=== PATIENT | female | born 1960 | race Hispanic/Latino ===

== ENCOUNTER 2020-04-17 15:21 | Inpatient (IN) | payer MEDICARE, OTHER ==
[~2020-04-17] VITALS: Ht 149.9 cm; Wt 94.3 kg
--- NOTE | 2020-04-17 15:44 | Emergency Department Note ---
History of Present Illnes History of Present Illness Chief Complaint: General Medicine Complaints History of Present Illness This is a 59 year old female arrives to the ED with abdominal pain. Chief Complaint Comment PT SENT OVER FROM DIALYSIS FOR CLOGGED SHUNT DIALYSIS LASTED 2 HR UNSURE OF HOW MUCH FLUID WAS PULLED OFF C/O RLQ/LLQ PAIN STATES SHE'S BEEN IN AND OUT OF [facility] FOR SAME COMPLAINT TOLD IT WOULD BE BETTER IF THEY CAME HERE BECAUSE THEY DON'T HAVE PERITONEAL DIALYSIS DENIES N/V C/O DIARRHEA C/O PAIN WHILE DRIVING OVER BUMPS PT STILL HAS APPENDIX Historian: Patient Onset (how long ago): hour(s) Radiation: Reports abdomen Severity: mild Duration (how long): day(s) Timing of current episode: constant Progression: worsening Past Medical/Family History Physician Review I have reviewed the patient's past medical and family history. Any updates have been documented here. Past Medical History Recent Fever: No Clinical Suspicion of Infectio: No New/Unexplained Change in Ment: No Past Medical History: Hypertension, Diabetes, CHF, A-Fib, Hyperlipedemia Other Medical History: RHEUMATOID ARTHRITIS GOUT Past Surgical History: Cholecysctectomy Other Surgery: STENTS Social History Smoking Cessation: Never Smoker Other Last Tetanus: UTD Review of Systems Review of Systems Constitutional: Reports no symptoms EENTM: Reports no symptoms Cardiovascular: Reports no symptoms Respiratory: Reports no symptoms Gastrointestinal: Reports as per HPI, Reports abdominal pain Genitourinary: Reports no symptoms Musculoskeletal: Reports no symptoms Integumentary: Reports no symptoms Neurological: Reports no symptoms Psychological: Reports no symptoms Endocrine: Reports no symptoms Hematological/Lymphatic: Reports no symptoms Physical Exam Related Data Allergies: Coded Allergies: No Known Allergies (Unverified , 04/17/20) Triage Vital Signs Vital Signs Date Time Temp Pulse Resp B/P (MAP) Pulse Ox O2 Delivery O2 Flow Rate FiO2 04/17/20 15:29 98.2 93 18 116/62 95 Vital signs reviewed: Yes Physical Exam CONSTITUTIONAL Constitutional: Present well-developed, Present well-nourished, Present morbidly obese HENT HENT: Present normocephalic, Present atraumatic, Present oropharynx clear/moist, Present nose normal HENT L/R: Present left ext ear normal, Present right ext ear normal EYES Eyes: Reports PERRL, Reports conjunctivae normal NECK Neck: Present ROM normal PULMONARY Pulmonary: Present effort normal, Present breath sounds normal CARDIOVASCULAR Cardiovascular: Present regular rhythm, Present heart sounds normal, Present capillary refill normal, Present normal rate GASTROINTESTINAL Abdominal: Present soft, Present bowel sounds normal, Present tender GENITOURINARY Genitourinary: Present exam deferred SKIN Skin: Present warm, Present dry MUSCULOSKELETAL Musculoskeletal: Present ROM normal NEUROLOGICAL Neurological: Present alert, Present oriented x 3, Present no gross motor or sensory deficits PSYCHOLOGICAL Psychological: Present mood/affect normal, Present judgement normal Results Laboratory Lab results reviewed: Yes Laboratory comments Laboratory Tests Test 04/24/20 15:39 Bedside Glucose 192 mg/dL (70-120) Imaging Imaging results reviewed: Yes Impressions MPRESSION: 1. Prominent wall enhancement of the distal ileum adjacent to peritoneal catheter with few loops showing mild wall thickening. Findings are suspicious for enteritis, which may be infectious or inflammatory. There is no bowel dilation or obstruction. 2. A few air foci are noted in the mesentery adjacent to abnormal loops of bowel, with multiple air foci in the nondependent portion of the peritoneal cavity consistent with pneumoperitoneum, greater than expected for peritoneal dialysis. Findings are concerning for bowel perforation. 3. Moderate amount of fluid in the peritoneal cavity and pelvis, which is likely secondary to peritoneal dialysis. 4. No peritoneal thickening or abnormal enhancement to suggest spontaneous bacterial peritonitis. 5. Cirrhotic liver. No suspicious enhancing lesions. 6. Small right pleural effusion and associated compressive atelectasis of the right lower lobe. 7. Findings discussed with Dr. Dawn April 17, 2020 at 1828 hours Assessment & Plan Medical Decision Making MDM 59-year-old female arrived to the ED with left lower quadrant abdominal pain. Patient CT findings concerning for possible bowel perforation, patient is diffusely tender. Lab work is unremarkable with no evidence of infection noted, Dr. Mai from general surgery informed of CT findings, to evaluate patient bedside. Patient require hospital admission. Assessment & Plan Final Impression: (1) Perforated abdominal viscus Depart Disposition: ADMITTED Last Vital Signs Date Time Temp Pulse Resp B/P (MAP) Pulse Ox O2 Delivery O2 Flow Rate FiO2 04/17/20 15:29 98.2 93 18 116/62 95 Home Meds Reported Medications [Sulfurzynine] No Conflict Check, 500 MG PO BID 04/18/20 Prednisone (PREDNISONE) 5 Mg Tablet, 2.5 MG PO PRN for ARTHRITIS , #30 TAB 04/18/20 Furosemide (FUROSEMIDE) 20 Mg Tablet, 20 MG PO DAILY 04/18/20 Cyclobenzaprine Hcl (CYCLOBENZAPRINE HCL) 10 Mg Tablet, 10 MG PO DAILY, TAB 04/18/20 Clopidogrel Bisulfate (CLOPIDOGREL) 75 Mg Tablet, 75 MG PO DAILY, #30 TAB 04/18/20 Carvedilol (CARVEDILOL) 12.5 Mg Tablet, 25 MG PO DAILY, #60 TAB 04/18/20 Adalimumab (HUMIRA) 40 Mg/0.8 Ml [email or web address], 40 MG INJ Q 2 WK 04/18/20 Amlodipine Besylate (AMLODIPINE BESYLATE) 5 Mg Tablet, 5 MG PO DAILY, #30 TAB 04/18/20 Sodium Bicarbonate (SODIUM BICARBONATE) 650 Mg Tablet, 650 MG PO DAILY, #30 TAB 04/18/20 Metronidazole (METRONIDAZOLE) 500 Mg Tablet, 500 MG PO DAILY, TAB 04/18/20 Ciprofloxacin Hcl (CIPRO) 500 Mg Tablet, 250 MG PO DAILY, #30 TAB 04/18/20 Pramipexole Di-Hcl (PRAMIPEXOLE DIHYDROCHLORIDE) 0.25 Mg Tablet, 0.25 MG PO HS 04/18/20 Tizanidine Hcl (TIZANIDINE HCL) 4 Mg Capsule, 4 MG PO PRN PRN for MUSCLE RELAXER 04/18/20 Tramadol Hcl (ULTRAM) 50 Mg Tablet, 50 MG PO PRN, TAB 04/18/20 Atorvastatin Calcium (ATORVASTATIN CALCIUM) 20 Mg Tablet, 20 MG PO DAILY, #30 TAB 04/18/20 Glipizide (GLIPIZIDE) 5 Mg Tablet, 5 MG PO DAILY, TAB 04/18/20 Allopurinol (ALLOPURINOL) 100 Mg Tablet, 100 MG PO DAILY, #30 TAB 04/18/20 Levothyroxine Sodium (LEVOTHYROXINE SODIUM) 75 Mcg Tablet, 75 MCG PO DAILY, #30 TAB 04/18/20 Gabapentin (GABAPENTIN) 300 Mg Capsule, 300 MG PO DAILY, #60 CAP 04/18/20 Clopidogrel Bisulfate* (PLAVIX) 75 Mg Tablet, MG PO DAILY, #30 TAB 04/18/20 LAURIE DAWN, DO Apr 17, 2020 15:44
[2020-04-17 16:15] LABS: BASOPHILS % 0.2 % (0.0-1.0); EOSINOPHILS % 0.2 % (0.0-6.0); HEMATOCRIT 27.9 % (34.2-44.1); HEMOGLOBIN 8.8 g/dL (12.0-16.0); LYMPHOCYTES # (AUTO) 0.3 (1.0-3.2); LYMPHOCYTES % 6.2 % (18.0-39.1); MEAN CORPUSCULAR HEMOGLOBIN 32.7 pg (28-32); MEAN CORPUSCULAR HGB CONC 31.5 g/dL (31-35); MEAN CORPUSCULAR VOLUME 103.7 fL (81-99); MONOCYTES # (AUTO) 0.4 (0.2-0.8); MONOCYTES % 7.6 % (4.4-11.3); NEUTROPHILS # (AUTO) 4.4 (2.1-6.9); NEUTROPHILS % 85.4 % (38.7-80.0); PLATELET COUNT 232 x10e3/uL (140-360); RED BLOOD COUNT 2.69 x10e6/uL (3.6-5.1); RED CELL DISTRIBUTION WIDTH 13.4 % (11.7-14.4)
[2020-04-17 16:34] LABS: ALBUMIN 2.7 g/dL (3.5-5.0); ALBUMIN/GLOBULIN RATIO 0.6 (0.8-2.0); ANION GAP 13.5 mmol/L (8-16); CREATININE, SERUM 4.44 mg/dL (0.57-1.11); POTASSIUM 3.5 mmol/L (3.5-5.1)
[2020-04-17 16:40] LABS: CREATINE KINASE MB 1.1 ng/mL (0-5.0)
[2020-04-17] MEDS ORDERED: MORPHINE SULFATE INJ 4 MG/ML INJ 1ML IV PRN (17:45)
[2020-04-17] MEDS ORDERED: ONDANSETRON HCL INJ 2MG/ML 2ML 2 MG/ML VIAL IV STA (17:50)
[2020-04-17] MEDS ORDERED: SODIUM CHLORIDE 0.9% 50ML 50 ML ONE ×2 (18:14→21:48)
[2020-04-17] MEDS ORDERED: IOPAMIDOL 370 MG/ML 200 ML INFUS..BTL INJ ONE (18:14)
--- NOTE | 2020-04-17 18:32 | Diagnostic Imaging Report ---
EXAMINATION: CT of the abdomen and pelvis with contrast. TECHNIQUE: Spiral CT images of the abdomen and pelvis were performed from the lung bases to the lesser trochanters after the intravenous administration of 100 cc of Isovue 370 and the oral administration of water. Coronal and sagittal reformatted images were obtained. COMPARISON: None. CLINICAL HISTORY:Abdominal pain, feeling weak, peritoneal dialysis today DISCUSSION: ABDOMEN/PELVIS: LINES AND TUBES: Radiopaque catheter enters the peritoneal cavity anteriorly below the umbilicus and is coiled in the anterior aspect of the pelvis (series 2, image 73). LOWER THORAX:Small right pleural effusion and associated compressive atelectasis of the right lower lobe. Atherosclerotic calcification of the aortic valve and coronary arteries. HEPATOBILIARY: Nodular hepatic contour with atrophy of the right hepatic lobe and prominence of the caudate and left lobes, consistent with cirrhosis. No enhancing lesions. No intra or extrahepatic biliary ductal dilation. GALLBLADDER: Cholecystectomy clips. SPLEEN: No splenomegaly. PANCREAS: No focal masses or ductal dilatation. ADRENALS: No adrenal nodules. KIDNEYS/URETERS: Bilateral renal cortical thinning. No hydronephrosis, hydroureter or evidence of obstruction. No stones. No solid enhancing masses. PELVIC ORGANS/BLADDER: Bladder is decompressed but grossly unremarkable. Uterus unremarkable. No adnexal masses. PERITONEUM/RETROPERITONEUM: Moderate amount of fluid in the peritoneal cavity and pelvis. Multiple air foci in the nondependent portion of the peritoneal cavity, consistent with pneumoperitoneum (for example series 2, image 30, 32, 45). No peritoneal thickening or abnormal enhancement is noted. LYMPH NODES: No intra-abdominal, retroperitoneal, pelvic or inguinal lymphadenopathy. VESSELS: The celiac trunk,superior and inferior mesenteric and bilateral renal arteries are patent The portal, superior mesenteric and splenic veins are patent. Atherosclerotic calcification of the abdominal aorta and iliac vessels. GI TRACT: No bowel dilation or evidence of obstruction. There is prominent wall enhancement of the distal ileum adjacent to the peritoneal catheter, with a few loops showing mild wall thickening (example series 2, image 71). A few air foci are noted in the mesentery adjacent to these bowel loops (for example series 2, image 15) Rest of the bowel shows normal enhancement. Appendix is identified and normal in caliber. BONES AND SOFT TISSUE: No aggressive lytic lesions. Multilevel degenerative disks in the lower thoracic and lumbosacral spine , worse at L4-L5 and L5-S1. No aggressive lytic or focal suspicious sclerotic lesions. Mild generalized soft tissue edema. IMPRESSION: 1. Prominent wall enhancement of the distal ileum adjacent to peritoneal catheter with few loops showing mild wall thickening. Findings are suspicious for enteritis, which may be infectious or inflammatory. There is no bowel dilation or obstruction. 2. A few air foci are noted in the mesentery adjacent to abnormal loops of bowel, with multiple air foci in the nondependent portion of the peritoneal cavity consistent with pneumoperitoneum, greater than expected for peritoneal dialysis. Findings are concerning for bowel perforation. 3. Moderate amount of fluid in the peritoneal cavity and pelvis, which is likely secondary to peritoneal dialysis. 4. No peritoneal thickening or abnormal enhancement to suggest spontaneous bacterial peritonitis. 5. Cirrhotic liver. No suspicious enhancing lesions. 6. Small right pleural effusion and associated compressive atelectasis of the right lower lobe. 7. Findings discussed with Dr. Moore April 17, 2020 at 1828 hours Signed by: Dr. Tato Hernandez M.D. on 04/17/2020 6:29 PM
--- NOTE | 2020-04-17 19:11 | NUR ---
RECEVIED REPORT FROM MILO HURTADO; ASSUMED CARE AT THIS TIME, PT IN NAD; RESP E/U, SKIN WARM DRY; V/S/S, DENIES C/O PAIN; DAUGHTER AT BEDSIDE.
--- NOTE | 2020-04-17 19:26 | NUR ---
DR. WELLS AT BEDSIDE FOR PATIENT EVAL AT THIS TIME, UPDATING POC.
[2020-04-17] MEDS ORDERED: CEFTRIAXONE SOD 1 GM/NS 50 ML 50 ML IV ONE (19:45)
[2020-04-17 19:59] LABS: INR 1.15; PROTHROMBIN TIME 15.4 seconds (11.9-14.5)
--- NOTE | 2020-04-17 20:47 | NUR ---
SPOKE TO MD WELLS REGARDING BLOOD SUGAR. NEW ORDERS RECEIVED.
[2020-04-17] MEDS ORDERED: DEXTROSE 50% SYRINGE 50 ML IV PRN (21:00)
[2020-04-17] MEDS: INSULIN REGULAR, HUMAN 100 UNIT/1 ML 3ML VIAL SQ SCH (21:00)
--- NOTE | 2020-04-17 21:02 | NUR ---
SPOKE TO MD STEINBERG. NEW ORDERS RECEIVED.
[2020-04-17 21:09] VITALS: BP 128/61
[2020-04-17 21:10] VITALS: BP 128/61
--- NOTE | 2020-04-17 21:15 | Consultation ---
DATE OF CONSULTATION: 04/17/2020 CHIEF COMPLAINT: Abdominal pain. HISTORY OF PRESENT ILLNESS: The patient is a 59-year-old female with history of end-stage renal disease, who had peritoneal dialysis catheter placement approximately 2 weeks ago. The patient was at the dialysis center and having it flushed today, during which she experienced severe abdominal pain with nausea, but no vomiting. The patient states the pain has been persistent. PAST MEDICAL HISTORY: Positive for hypertension, diabetes, end-stage renal disease, and liver cirrhosis, nonalcoholic. PAST SURGICAL HISTORY: Positive for cholecystectomy and peritoneal catheter placement. ALLERGIES: THE PATIENT HAS NO DRUG ALLERGIES. SOCIAL HABITS: She denies drinking or smoking. REVIEW OF SYSTEMS: No chest pain, shortness of breath, fever, or cough. PHYSICAL EXAMINATION: VITAL SIGNS: Stable. She is afebrile. GENERAL: She is awake, alert, in moderate discomfort. HEENT: Sclerae anicteric. NECK: Supple. LUNGS: Clear. HEART: Regular rate and rhythm. ABDOMEN: Mildly to moderately distended with guarding tenderness in the lower abdomen with questionable rebound tenderness. EXTREMITIES: No cyanosis or edema. LABORATORY DATA: White cell count is 5, hemoglobin 8.8, and platelet count 232. Creatinine of 4.4. Liver function tests within normal limits. CT of the abdomen show thickened wall of the distal ileum, suggestive of enteritis with some air bubble in the mesentery, suggesting pneumoperitoneum even though peritoneal dialysis fluid is a possibility. ASSESSMENT: Abdominal pain. The patient had peritoneal dialysis catheter placement several weeks ago. Pain is recurrent with CT scan, suggestive for bowel perforation. PLAN: Diagnostic laparoscopy and indicated procedure. Arvind Mai MD DNRosalinda/MODL /[id number]
[2020-04-17] MEDS ORDERED: FAMOTIDINE 20 MG/2 ML VIAL IV STA (22:07)
[2020-04-17] MEDS: MORPHINE SULFATE INJ 4 MG/ML INJ 1ML IV PRN (22:24)
[2020-04-18] VITALS (8 sets, daily range): BP systolic 108–129; BP diastolic 51–72
[2020-04-18] MEDS: PIPERACILLIN/TAZO 2.25 GM 50 ML IV SCH ×5 (00:08→23:57)
--- NOTE | 2020-04-18 00:56 | History and Physical ---
CHIEF COMPLAINT: Abdominal pain with possible perforation. Unable to flush PD cath during PD HISTORY OF PRESENT ILLNESS: The patient is a 59-year-old female, was brought into the hospital because her peritoneal dialysis catheter is not functioning. It was not flushing during PD and the fluid remaining in the abdomen. The patient came to the hospital with increasing abdominal pain and distention. In the emergency room, the patient had a CT scan of abdomen and pelvis, showed possible bowel perforation. There is also increase in small bowel thickening with possible enteritis. The patient is admitted for possible exploratory laparotomy by Dr. Arvind Mai. The patient is currently stable with pain, pain medication, improving, antibiotic initiated. PAST MEDICAL HISTORY: 1. End-stage renal disease pending for peritoneal dialysis with recent placement of the peritoneal catheter. 2. Recent congestive heart failure with volume overload. 3. Recent right thoracentesis due to right pleural effusion. 4. Hypertension. 5. Diabetes type 2. 6. Dyslipidemia. PAST SURGICAL HISTORY: 1. Peritoneal dialysis catheter placement. 2. Cholecystectomy. 3. Right thoracentesis. SOCIAL HISTORY: The patient does not smoke or use alcohol. No regular drugs. ALLERGIES: NO KNOWN ALLERGIES. HOME MEDICATIONS: List is not yet available for review. REVIEW OF SYSTEMS: Nausea, but no vomiting. Abdominal pain with distention. PHYSICAL EXAMINATION: VITAL SIGNS: Temperature is 97, blood pressure 120/61, pulse rate is 93, respirations 18. GENERAL: The patient is not in any respiratory distress. HEENT: Normocephalic and atraumatic. Pupils reactive. Anicteric. NECK: Supple grossly. PULMONARY: Diminished breath sounds at bases. CARDIOVASCULAR: Regular rate and rhythm. ABDOMEN: Distended with peritoneal dialysis catheter. Tenderness with some guarding. EXTREMITIES: No cyanosis or edema. NEUROLOGIC: No focal deficit. LABORATORY DATA: COVID-19 pending. Sodium is 134, potassium 3.5, chloride 99, bicarb 25, BUN is 49, creatinine 4.4, and glucose is 226, lipase is 77, albumin 2.7, AST 20, ALT 12, alkaline phosphatase 149. WBC 5.2, hemoglobin 8.8, hematocrit 27.9, and platelets 232. INR is 1.15. CT scan of abdomen and pelvis, prominent wall enhancement of the distal ileum adjacent to peritoneal catheter with few loops showing mild wall thickening, suspicious for enteritis. A few air foci are noted in the mesentery adjacent to the abnormal loops of bowel with multiple air foci in the nondependent portion of the peritoneal cavity consistent with pneumoperitoneum greater than expected for peritoneal dialysis. These finding are concerning for bowel perforation. Moderate amount of fluid in the peritoneal cavity, which is likely secondary to peritoneal dialysis. No peritoneal thickening or abnormal enhancement to suggest spontaneous bacterial peritonitis. Cirrhotic liver. Small right pleural effusion with associated atelectasis of the right lower lobe. IMPRESSION: 1. Possible early perforated bowel. 2. End-stage renal disease, continue on peritoneal dialysis with the peritoneal catheter obstruction. 3. Abdominal ascites with liver cirrhosis. 4. Abdominal pain, distention, most likely secondary to the above. 5. Diabetes type 2, on insulin. 6. Hypertension with end-stage renal disease. 7. Malfunction PD catheter. PLAN: Dr. Mai has seen the patient. The patient is pending for COVID-19 test. She is pending for diagnostic laparoscopy and procedure as needed. Insulin sliding scale coverage. Antibiotic with Zosyn instead of Rocephin. Continue with other home medications when available. Pepcid 20 mg twice a day. We will check the patient's lab work. The patient may be beneficial for hemodialysis instead of peritoneal dialysis, but that we will leave up to the renal specialist and I will schedule Dr. Bellamy in the morning. The patient is otherwise clinically stable at this time with close monitoring. MD TERESA Salamanca/RICHARD /[id number] MTDFernando
[2020-04-18] MEDS ORDERED: GLIPIZIDE5 MG PO (04:14)
[2020-04-18] MEDS ORDERED: [UNRECOGNIZED DRUG - OTHER] (04:14)
[2020-04-18] MEDS ORDERED: GABAPENTIN300 MG PO (04:14)
[2020-04-18] MEDS ORDERED: ULTRAM50 MG PO (04:14)
[2020-04-18] MEDS ORDERED: ALLOPURINOL100 MG PO (04:14)
[2020-04-18] MEDS ORDERED: ATORVASTATIN CA20 MG PO (04:14)
[2020-04-18] MEDS ORDERED: LEVOTHYROXINE75 MCG PO (04:14)
[2020-04-18] MEDS ORDERED: PLAVIX75 MG PO (04:14)
[2020-04-18] MEDS ORDERED: AMLODIPINE BESYL5 MG PO (04:29)
[2020-04-18] MEDS ORDERED: PRAMIPEXOLE D0.25 MG PO (04:29)
[2020-04-18] MEDS ORDERED: CIPRO500 MG PO (04:29)
[2020-04-18] MEDS ORDERED: TIZANIDINE HCL4 M1 PO (04:29)
[2020-04-18] MEDS ORDERED: METRONIDAZOLE500 MG PO (04:29)
[2020-04-18] MEDS ORDERED: SODIUM BICARBO650 MG PO (04:29)
[2020-04-18] MEDS ORDERED: FUROSEMIDE20 MG PO (04:35)
[2020-04-18] MEDS ORDERED: HUMIRA40 MG/0.1 INJ (04:35)
[2020-04-18] MEDS ORDERED: CYCLOBENZAPRINE10 MG PO (04:35)
[2020-04-18] MEDS ORDERED: PREDNISONE5 MG PO (04:35)
[2020-04-18] MEDS ORDERED: CLOPIDOGREL75 MG PO (04:35)
[2020-04-18] MEDS ORDERED: [UNRECOGNIZED DRUG - OTHER] PO (04:35)
[2020-04-18] MEDS ORDERED: CARVEDILOL12.5 MG PO (04:35)
[2020-04-18 05:33] LABS: BASOPHILS # (AUTO) 0.1 (0.0-0.1); BASOPHILS % 0.5 % (0.0-1.0); EOSINOPHILS % 0.1 % (0.0-6.0); HEMATOCRIT 24.8 % (34.2-44.1); HEMOGLOBIN 7.6 g/dL (12.0-16.0); LYMPHOCYTES # (AUTO) 1.2 (1.0-3.2); LYMPHOCYTES % 8.9 % (18.0-39.1); MEAN CORPUSCULAR HGB CONC 30.6 g/dL (31-35); MEAN CORPUSCULAR VOLUME 107.8 fL (81-99); MONOCYTES % 7.5 % (4.4-11.3); NEUTROPHILS # (AUTO) 10.7 (2.1-6.9); NEUTROPHILS % 82.3 % (38.7-80.0); PLATELET COUNT 236 x10e3/uL (140-360); RED CELL DISTRIBUTION WIDTH 13.5 % (11.7-14.4)
[2020-04-18 06:07] LABS: ALBUMIN 2.5 g/dL (3.5-5.0); ALBUMIN/GLOBULIN RATIO 0.6 (0.8-2.0); ANION GAP 14.3 mmol/L (8-16); CALCIUM 7.9 mg/dL (8.4-10.2); CREATININE, SERUM 4.61 mg/dL (0.57-1.11); POTASSIUM 5.3 mmol/L (3.5-5.1)
--- NOTE | 2020-04-18 07:20 | NUR ---
REPORT GIVEN TO [facility] NURSE. ALERT AND ORIENTED TO PERSON. FAMILY MEMBER AT BEDSIDE. NO SIGNS IV INFILTRATION. BED LOCKED AND IN LOW POSITION. CALL LIGHT WITHIN REACH. Addendum: 04/18/20 at 0723 by Brittney Vázquez RN PLEASE DISREGARD NOTE. PLEASE NOTE REPORT G[facility]EN [facility]. RESTING IN BED. AAOX3. NO SIGNS OF IV INFILTRATION. BED LOCKED AND IN LOW POSITION. CALL LIGHT WITHIN REACH.
[2020-04-18] MEDS: INSULIN REGULAR, HUMAN 100 UNIT/1 ML 3ML VIAL SQ SCH ×4 (07:30→20:50)
[2020-04-18] MEDS ORDERED: BUPIVACAINE 0.25%/EPI 30ML SDV INJ ONE (08:35)
--- NOTE | 2020-04-18 08:45 | NUR ---
down to or for procedure left in stable condition
[2020-04-18] MEDS ORDERED: SODIUM CHLORIDE 0.9% 500ML 500 ML ONE (08:57)
--- NOTE | 2020-04-18 11:07 | Operative Report ---
DATE OF PROCEDURE: 04/18/2020 SURGEON: Arvind Mai MD PREOPERATIVE DIAGNOSIS: Pneumoperitoneum, possible bowel perforation. POSTOPERATIVE DIAGNOSIS: Partial intestinal obstruction secondary to intense inflammatory reaction to the PD catheter. OPERATIVE PROCEDURE: Diagnostic laparoscopy, lysis of adhesions and relocations, repositioning of the PD catheter. DESCRIPTION OF PROCEDURE: The patient was brought to the OR intubated, abdomen prepped and draped in sterile fashion. The left subcostal direct port access was carried out using the laparoscope, entering the peritoneal cavities. We noted adhesions from the small bowel loops to the periumbilical area at the site of the PD catheter entry as well as in the pelvis. Using blunt dissection with an additional port placed in the bilateral flank area, we took down the adhesions from the abdominal wall relatively straightforward. However, in the pelvis where the coil of the PD catheter was located, intense inflammatory reaction causing the loops of small bowel to wrapped around the PD catheter and adherent to the suprapubic region. Attempt at bluntly take down the adhesion result in some bleeding from extreme friability and inflammation. At this point, the PD catheter was then withdrawn from the tract inside the loops of bowel and completely free. The PD catheter placed in the left lower quadrant. Operative field was then irrigated. Additional adhesion proximally and distally to the loop that was attached to the suprapubic region was checked to ensure no obstruction encountered. At this point, a L of saline was flushed through the PD catheter without difficulty. We then proceeded to irrigate the peritoneal cavity, suctioned out old blood. All ports then removed under direct vision. Fascia closure 0 Vicryl. Skin closed with subcuticular stitch. The patient was extubated and transported to recovery room. ESTIMATED BLOOD LOSS: 20 mL. Arvind Mai MD DNL/MODL /[id number]
[2020-04-18] MEDS ORDERED: FENTANYL CITRATE/PF 100MCG/2 ML INJ ONE ×2 (11:09→15:02)
[2020-04-18] MEDS: FAMOTIDINE 20 MG/2 ML VIAL IV SCH ×2 (11:43→17:35)
--- NOTE | 2020-04-18 11:43 | NUR ---
BACK TO RM, AAOX3 NO DISTRESS NOTED, DSG TO ABDOMEN C/D/I, PERITONEAL HD CATH IN PLACE, VS STABLE 109/68,72,98.1,16,100%, DENIES PAIN AT THIS TIME, SISTER AT BEDSIDE WILL CONTINUE TO MONITOR
[2020-04-18] MEDS ORDERED: NEOSTIGMINE 1 MG/ML 10ML VIAL ONE (14:34)
[2020-04-18] MEDS ORDERED: GLYCOPYRROLATE INJ 0.2 MG/ML VIAL ONE (14:34)
[2020-04-18] MEDS ORDERED: ROCURONIUM BROMIDE 10 MG/ML 5ML VIAL IV ONE (14:34)
[2020-04-18] MEDS ORDERED: LIDOCAINE HCL 2% LOCAL INJ 5 ML SDV VIAL INJ ONE (14:34)
[2020-04-18] MEDS ORDERED: DEXAMETHASONE SOD PHOS INJ 4 MG/ML VIAL ONE (14:34)
[2020-04-18] MEDS ORDERED: PROPOFOL IV EMULSION 10 MG/ML 20 ML VIAL ONE (14:34)
[2020-04-18] MEDS ORDERED: CEFAZOLIN SOD 1 GM VIAL ONE (14:34)
[2020-04-18] MEDS ORDERED: SEVOFLURANE INHAL SOLN 250 ML PEN BTL ONE (14:34)
[2020-04-18] MEDS ORDERED: ONDANSETRON HCL INJ 2MG/ML 2ML 2 MG/ML VIAL ONE (14:34)
[2020-04-18] MEDS ORDERED: EPHEDRINE SULFATE INJ 50 MG/ML VIAL ONE (14:34)
[2020-04-18] MEDS ORDERED: MIDAZOLAM HCL 2 MG/2 ML VIAL ONE (15:02)
--- NOTE | 2020-04-18 19:00 | NUR ---
RECEIVED PATIENT IN BEDSIDE SHIFT REPORT. PATIENT RESTING IN BED AT THIS TIME. NO PAIN REPORTED. NO S&S OF DISTRESS NOTED. BED LOCKED IN LOWEST POSITION, SIDE RAILS UPX2, CALL LIGHT IN REACH.
--- NOTE | 2020-04-18 19:40 | NUR ---
DIALYSIS NURSE REPORTS BLOODY EFFLUENT IN PERITONEAL DIALYSIS TUBES. MD INFORMED. WILL CONTINUE TO MONITOR.
[2020-04-18] MEDS ORDERED: CEFTRIAXONE SOD 1 GM/NS 50 ML 50 ML IV SCH (20:00)
--- NOTE | 2020-04-18 23:04 | NUR ---
PERITONEAL DIALYSIS MACHINE ALARMING FREQUENTLY THAT LINE IS BLOCKED, NO KINK IN TUBING NOTED. DRAINING VERY SLOWLY. PAGE PLACED TO DIALYSIS NURSE FOR RECOMMENDATIONS.
--- NOTE | 2020-04-18 23:35 | Consultation ---
DATE OF CONSULTATION: 04/18/2020 Renal Consultation Note: REQUESTING PHYSICIAN: Porfirio Dawson MD. REASON FOR CONSULTATION: 1. End-stage renal disease management. 2. Fluid, electrolyte, and acid-base management. 3. Hyperkalemia. 4. Hyponatremia. 5. Malfunctioning peritoneal dialysis catheter. HISTORY OF PRESENT ILLNESS: This is a pleasant 59-year-old female with history of: 1. End-stage renal disease, on peritoneal dialysis. 2. Hypertension. 3. Diabetes mellitus. 4. Obesity. 5. Congestive heart failure. 6. History of thoracentesis. 7. Cholecystectomy. 8. Peritoneal dialysis catheter placement. 9. Hemodialysis catheter placement and removal. 10.Liver cirrhosis. The patient was admitted to [facility] for abdominal pain and malfunctioning of peritoneal dialysis catheter. She was evaluated by Surgery and underwent exploratory laparotomy with lysis of adhesions and repositioning of PD catheter. She denies any complaints of chest pain, shortness of breath, nausea, vomiting at the present time. Nurse and family member at bedside. Labs showed serum creatinine of 4.6 with BUN of 52, potassium of 5.3, and sodium of 134. PAST MEDICAL HISTORY: As per HPI. PAST SURGICAL HISTORY: As per [facility]. ALLERGIES: PER [facility] SOCIAL HISTORY: Negative x 3. FAMILY HISTORY: Negative for kidney disease. REVIEW OF SYSTEMS: Positive for abdominal pain on admission as per HPI. Rest of the review of systems essentially negative at the present time with no complaints of chest pain, shortness of breath, nausea, or vomiting. PHYSICAL EXAMINATION: GENERAL: The patient is lying down in bed, in no acute respiratory distress. VITAL SIGNS: Blood pressure is 103/56, pulse is 89, respiratory rate 12. HEENT: Pupils are reactive to light. NECK: Supple. CHEST/LUNGS: Clear to auscultation bilaterally. CARDIOVASCULAR: S1 and S2 heard. ABDOMEN: Soft. EXTREMITIES: No edema. NEUROLOGIC: Awake and alert. PSYCHIATRIC: Normal mood. LABORATORY DATA: Serum sodium 134, potassium 5.3, chloride 100, bicarbonate 25, BUN is 52, creatinine is 4.6, calcium 7.9, albumin 2.5, hemoglobin is 7.6. CT abdomen findings noted. ASSESSMENT: 1. End-stage renal disease. 2. Hyponatremia. 3. Hyperkalemia. 4. Anemia. 5. Hypertension. 6. Diabetes mellitus. 7. Congestive heart failure. 8. Liver cirrhosis. 9. Obesity. 10. Malfunctioning of peritoneal dialysis catheter, status post surgery. PLAN: 1. She is status post exploratory laparotomy with lysis of adhesions and repositioning of her PD catheter. Spoke with Dr. Mai. Okay to use PD catheter per him. Will use PD catheter tonight with lower fill volumes and do peritoneal dialysis per orders for clearance. 2. Low potassium diet + fluid restriction + peritoneal dialysis as above. 3. Monitor serum electrolytes and acid-base status. 4. Monitor serum calcium, phosphorus, and magnesium levels. 5. Monitor H and H levels + Epogen as needed for anemia. 6. Blood pressure is stable, monitor. 7. Renally dose all medications. 8. Strict I's and O's and daily weights. 9. Plan discussed with the patient, patient's family, nurse, and Dr. Mai. Thank you for the interesting consult. We will continue to closely follow the patient with you. Please do not hesitate to call us with any further questions. MD MU Wang/RICHARD /[id number] MTDFernando
--- NOTE | 2020-04-18 23:40 | NUR ---
SPOKE WITH DIALYSIS NURSE AND TROUBLESHOOTED FIXES FOR BLOCKED DRAINING. DIALYSIS NURSE STATED HE WOULD COME BACK TO LOOK AT IT.
[2020-04-19] VITALS (9 sets, daily range): BP systolic 108–136; BP diastolic 53–60
--- NOTE | 2020-04-19 01:00 | NUR ---
DIALYSIS NURSE SPOKE WITH MD ANTONY, COVERING FOR IDRIS, ORDERS TO STOP PERITONEAL DIALYSIS AT THIS TIME, PATIENT WILL LIKELY NEED HD, WILL ASSESS IN AM. DIALYSIS NURSE FOUND TISSUE-LIKE CLOT IN TUBING, WHICH LIKELY CAUSED THE BLOCKAGE, SHOWED PICTURE TO MD ANTONY. PATIENT STATES SHE IS NOT IN PAIN AT THIS TIME, UNLIKE YESTERDAY NIGHT WHEN PERITONEAL DIALYSIS CATHETER WAS BLOCKED. WILL CONTINUE TO MONITOR.
[2020-04-19] MEDS: PIPERACILLIN/TAZO 2.25 GM 50 ML IV SCH ×4 (05:41→23:37)
--- NOTE | 2020-04-19 05:54 | NUR ---
PAGED MD HAMILTON AT THIS TIME TO INFORM HIM OF OVERNIGHT PERITONEAL DIALYSIS BLOCKAGE. AWAITING CALL BACK.
--- NOTE | 2020-04-19 06:00 | NUR ---
SPOKE WITH MD HAMILTON AND INFORMED HIM OF PERITONEAL CATHETER BLOCKAGE, NO NEW ORDERS AT THIS TIME.
[2020-04-19 06:30] LABS: ANION GAP 14.2 mmol/L (8-16); CALCIUM 7.4 mg/dL (8.4-10.2); CREATININE, SERUM 5.71 mg/dL (0.57-1.11); MAGNESIUM 1.7 MG/DL (1.3-2.1); PHOSPHORUS 6.1 MG/DL (2.3-4.7); POTASSIUM 5.2 mmol/L (3.5-5.1)
[2020-04-19] MEDS: INSULIN REGULAR, HUMAN 100 UNIT/1 ML 3ML VIAL SQ SCH ×4 (07:30→19:38)
[2020-04-19] MEDS: FAMOTIDINE 20 MG/2 ML VIAL IV SCH ×2 (09:55→16:38)
--- NOTE | 2020-04-19 15:50 | NUR ---
PATIENT COMPLAINS OF MOUTH SOURS AND BLOATING, CALLED [facility] REGARDING ACQUIRING HEMODIALYSIS.
--- NOTE | 2020-04-19 16:21 | NUR ---
SPOKE TO DR. DAVIS, RENAL NETWORK PLANNER FOR [facility] REGARDING INCOMPLETION OF PERITONEAL DIALYSIS, DR. DAVIS STATED, "THE PATIENT WILL ABSORB THE FLUID LEFT IN HER BODY, DR. STEINBERG WILL ULTIMATELY NEED TO TALK TO HER TOMORROW AND CHANGE HER MODALITIES THEN HAVE A TEMPORARY CATHETER PLACED FOR HEMODIALYSIS."
--- NOTE | 2020-04-19 16:31 | NUR ---
PATIENT COMPLAINED OF CONSTIPATION PATIENT DOES NOT HAVE ANY PRN MEDICATIONS FOR CONSTIPATIENT, CALLED Caroline TURNER AT [phone], MESSAGE LEFT WITH CALL BACK NUMBER x2.
[2020-04-19] MEDS: MORPHINE SULFATE INJ 4 MG/ML INJ 1ML IV PRN (16:50)
[2020-04-19] MEDS: ONDANSETRON HCL INJ 2MG/ML 2ML 2 MG/ML VIAL IV PRN (16:50)
--- NOTE | 2020-04-19 18:58 | NUR ---
BEDSIDE CHANGE OF SHIFT REPORT GIVEN TO ZAN Ray RN.
--- NOTE | 2020-04-19 20:44 | NUR ---
PATIENT AMBULATING IN HALLWAY WITH WALKER. STEADY GAIT NOTED. PATIENT STATES SHE FEELS LIKE SHE NEEDS TO PASS GAS, AND WANTED TO WALK TO HELP RELIEVE THE GAS.
[2020-04-20] VITALS (7 sets, daily range): BP systolic 113–141; BP diastolic 53–62
[2020-04-20] MEDS: PIPERACILLIN/TAZO 2.25 GM 50 ML IV SCH ×3 (06:06→22:00)
--- NOTE | 2020-04-20 07:27 | NUR ---
ASSUMED CARE. AAOX3. ACYANOTIC. RESTING IN BED. NO DISTRESS NOTED. CALL LIGHT IN REACH. SIDE RAILS UP X2.
[2020-04-20] MEDS: INSULIN REGULAR, HUMAN 100 UNIT/1 ML 3ML VIAL SQ SCH ×4 (07:30→21:00)
[2020-04-20] MEDS ORDERED: TIZANIDINE HCL 4 MG TAB PO PRN (08:30)
[2020-04-20] MEDS ORDERED: HYDRALAZINE HCL 20 MG/ML VIAL IV PRN (08:30)
[2020-04-20] MEDS ORDERED: TRAMADOL HCL 50 MG TAB PO PRN (08:30)
[2020-04-20 08:52] LABS: BASOPHILS # (AUTO) 0.1 (0.0-0.1); BASOPHILS % 0.5 % (0.0-1.0); EOSINOPHILS # (AUTO) 0.9 (0.0-0.4); EOSINOPHILS % 6.2 % (0.0-6.0); HEMATOCRIT 24.4 % (34.2-44.1); HEMOGLOBIN 7.6 g/dL (12.0-16.0); LYMPHOCYTES # (AUTO) 1.2 (1.0-3.2); LYMPHOCYTES % 8.3 % (18.0-39.1); MEAN CORPUSCULAR HEMOGLOBIN 32.3 pg (28-32); MEAN CORPUSCULAR HGB CONC 31.1 g/dL (31-35); MEAN CORPUSCULAR VOLUME 103.8 fL (81-99); NEUTROPHILS # (AUTO) 10.8 (2.1-6.9); NEUTROPHILS % 77.2 % (38.7-80.0); PLATELET COUNT 278 x10e3/uL (140-360); RED BLOOD COUNT 2.35 x10e6/uL (3.6-5.1); RED CELL DISTRIBUTION WIDTH 13.5 % (11.7-14.4)
[2020-04-20] MEDS: LEVOTHYROXINE SODIUM 75 MCG TAB PO SCH (09:00)
[2020-04-20 09:13] LABS: ANION GAP 16.9 mmol/L (8-16); CALCIUM 7.5 mg/dL (8.4-10.2); CREATININE, SERUM 6.74 mg/dL (0.57-1.11); POTASSIUM 5.9 mmol/L (3.5-5.1)
--- NOTE | 2020-04-20 09:45 | NUR ---
Pt unavailable at this time. Pt's nurse performing procedure bedside. I will follow up as able. ALVAREZ PELLETIER [employer] [facility] Care Department O: [phone]
[2020-04-20] MEDS: SODIUM BICARBONATE 650 MG TAB PO SCH (10:00)
[2020-04-20] MEDS: FAMOTIDINE 20 MG/2 ML VIAL IV SCH ×2 (10:00→17:54)
[2020-04-20] MEDS: CARVEDILOL 12.5 MG TAB PO SCH ×2 (10:00→18:17)
[2020-04-20] MEDS: FUROSEMIDE INJ 10 MG/ML 4 ML VIAL IV SCH ×2 (10:00→13:00)
[2020-04-20] MEDS: ALLOPURINOL 100 MG TAB PO SCH (10:00)
[2020-04-20] MEDS ORDERED: LIDOCAINE HCL 1% LOCAL INJ 20 ML VIAL ONE (11:04)
[2020-04-20] MEDS ORDERED: ALBUTEROL/IPRATROPIUM 3 ML NEB NEB ONE (11:20)
[2020-04-20] MEDS ORDERED: INSULIN REGULAR, HUMAN 100 UNIT/1 ML 3ML VIAL IV ONE (11:20)
[2020-04-20] MEDS ORDERED: SODIUM CHLORIDE 0.9% 250ML 250 ML IV ONE (11:20)
[2020-04-20] MEDS ORDERED: DEXTROSE 50% SYRINGE 50 ML IV ONE (11:20)
[2020-04-20] MEDS ORDERED: CALCIUM GLUCONATE 10% INJ 4.65 MEQ in SODIUM CHLORIDE 0.9% 50ML 50 ML IV ONE (11:30)
--- NOTE | 2020-04-20 11:36 | NUR ---
PATIENT CURRENTLY OFF UNIT TO RADIOLOGY FOR TEMPORARY HEMODIALYSIS CATHETER INSERTION.
[2020-04-20] MEDS ORDERED: HEPARIN SOD (PORCINE) 1000 UNIT/ML SDV ONE (11:59)
[2020-04-20] MEDS: NYSTATIN SUSPENSION 5 ML UDC PO SCH ×3 (13:00→21:00)
--- NOTE | 2020-04-20 13:20 | NUR ---
PT SIGNED CHOICE FOR [facility] WILL COMPLETE PACKET AND FAX TO ADMISSIONS.
--- NOTE | 2020-04-20 13:21 | NUR ---
ASKED NURSE TO ORDER HEB B PANEL
--- NOTE | 2020-04-20 13:56 | Diagnostic Imaging Report ---
Procedure: Nontunneled temporary dialysis catheter placement. History: Need for hemodialysis. Housekeeping Room Attendant: Gigi Templeton MD. Qualification Engineer: None Modality: Sonography and fluoroscopy. DOSE REDUCTION: The examination was performed according to departmental dose-optimization program which includes automated exposure control, adjustment of the mA and/or kV according to patient size and/or use of iterative reconstruction technique. Fluoro time: 0.4 minutes. Radiation dose for this procedure was 4.98 mGy air Kerma. Number of images: 1 Sedation: No IV sedation was given. Anesthesia: Lidocaine local infiltration. Physician intra-service sedation time was not applicable. Estimated blood loss: < 5 cc. Technique: Informed written consent was obtained. Discussion of risks, benefits, and alternatives were made with the patient. The patient expressed understanding and agreed to proceed. A universal timeout was performed prior to starting the procedure. The procedure room personnel used personal protective equipment. The operators used sterile gowns and gloves additionally. A preliminary ultrasonogram was performed of the neck that revealed a patent and compressible right internal jugular vein. Pertinent ultrasound images were stored in the PACS for documentation. A sterile prep and drape of the neck and upper chest was performed using standard technique. Using aseptic precautions, real-time ultrasound guidance, the internal jugular vein was accessed after local anesthetic infiltration and dermatotomy with a micropuncture needle. A 018 guidewire was advanced into the central venous system under fluoroscopic guidance. Over the wire a micropuncture sheath was placed. Through the micropuncture sheath, a 035 wire was advanced into the venous system under fluoroscopic guidance. Over the wire following sequential dilatation of the tract, a nontunneled temporary dialysis catheter was placed. The catheter ports aspirated and flushed well and were terminally packed with heparin. The catheter was secured to skin with nonabsorbable suture. An aseptic dressing was applied. The patient was transferred to the recovery area and was discharged from the department in stable condition. Complications: None immediate. Device: 14 Romansh x15 cm triple-lumen nontunneled dialysis catheter . Findings: Patent and compressible right internal jugular vein. Final image shows the catheter to be in good position with the catheter tip at the cavoatrial junction and an excellent position for use. There is no complication. Impression: Successful ultrasound and fluoroscopic guided right internal jugular vein route nontunneled triple lumen temporary dialysis catheter placement as described above. Thank you for the opportunity to assist in the care of your patient. Signed by: Gigi Templeton MD on 04/20/2020 1:52 PM
[2020-04-20] MEDS ORDERED: SODIUM CHLORIDE 0.9% 1000ML 1,000 ML ONE (15:29)
[2020-04-20] MEDS ORDERED: HEPARIN SOD (PORCINE) 1000 UNIT/ML 10ML MDV IV SCH (16:00)
[2020-04-20] MEDS ORDERED: MANNITOL 25% 12.5GM/50 ML VIAL IV ONE (16:00)
[2020-04-20] MEDS ORDERED: SODIUM CHLORIDE 0.9% 250ML 250 ML ONE (16:01)
[2020-04-20] MEDS ORDERED: HEPARIN SOD (PORCINE) 1000 UNIT/ML SDV IV PRN (16:15)
[2020-04-20] MEDS: PRAMIPEXOLE DIHYDROCHLORIDE 0.25 MG TAB PO SCH (21:00)
[2020-04-21] VITALS (7 sets, daily range): BP systolic 113–148; BP diastolic 56–98
[2020-04-21] MEDS: PIPERACILLIN/TAZO 2.25 GM 50 ML IV SCH ×5 (03:56→19:59)
[2020-04-21] MEDS: MORPHINE SULFATE INJ 4 MG/ML INJ 1ML IV PRN (03:56)
[2020-04-21] MEDS: NYSTATIN SUSPENSION 5 ML UDC PO SCH ×5 (05:00→19:59)
[2020-04-21] MEDS: LEVOTHYROXINE SODIUM 75 MCG TAB PO SCH (05:00)
[2020-04-21 05:57] LABS: BASOPHILS % 0.5 % (0.0-1.0); EOSINOPHILS # (AUTO) 0.5 (0.0-0.4); EOSINOPHILS % 6.8 % (0.0-6.0); HEMATOCRIT 23.2 % (34.2-44.1); HEMOGLOBIN 7.6 g/dL (12.0-16.0); LYMPHOCYTES # (AUTO) 1.1 (1.0-3.2); LYMPHOCYTES % 15.1 % (18.0-39.1); MEAN CORPUSCULAR HEMOGLOBIN 33.2 pg (28-32); MEAN CORPUSCULAR HGB CONC 32.8 g/dL (31-35); MEAN CORPUSCULAR VOLUME 101.3 fL (81-99); MONOCYTES # (AUTO) 0.9 (0.2-0.8); MONOCYTES % 12.2 % (4.4-11.3); NEUTROPHILS # (AUTO) 4.8 (2.1-6.9); NEUTROPHILS % 64.9 % (38.7-80.0); PLATELET COUNT 193 x10e3/uL (140-360); RED BLOOD COUNT 2.29 x10e6/uL (3.6-5.1); RED CELL DISTRIBUTION WIDTH 15.9 % (11.7-14.4)
[2020-04-21 06:16] LABS: ANION GAP 16.7 mmol/L (8-16); CALCIUM 7.3 mg/dL (8.4-10.2); CREATININE, SERUM 5.36 mg/dL (0.57-1.11); POTASSIUM 4.7 mmol/L (3.5-5.1)
--- NOTE | 2020-04-21 07:15 | NUR ---
Bedside report and walking rounds completed with oncoming nurse. Patient in bed with call light within reach. No issue or concerns noted.
--- NOTE | 2020-04-21 07:18 | NUR ---
ASSUMED CARE. PATIENT RESTING IN BED QUIETLY. NO DISTRESS NOTED. CALL LIGHT IN REACH. SIDE RAILS UP X2. BED LOW.
[2020-04-21] MEDS: INSULIN REGULAR, HUMAN 100 UNIT/1 ML 3ML VIAL SQ SCH ×4 (07:30→23:22)
[2020-04-21] MEDS: FUROSEMIDE INJ 10 MG/ML 4 ML VIAL IV SCH ×2 (08:00→12:25)
[2020-04-21] MEDS: CARVEDILOL 12.5 MG TAB PO SCH ×2 (08:04→16:51)
[2020-04-21] MEDS ORDERED: SODIUM CHLORIDE 0.9% 1000ML 2,000 ML ONE (08:33)
[2020-04-21] MEDS: FAMOTIDINE 20 MG/2 ML VIAL IV SCH ×2 (09:00→16:51)
[2020-04-21] MEDS ORDERED: SODIUM CHLORIDE 0.9% 250ML 250 ML ONE (09:26)
--- NOTE | 2020-04-21 09:28 | NUR ---
AAOX3. ACYANOTIC. RESTING IN BED WITH DIALYSIS TREATMENT IN PROGRESS. CURRENTLY RECEIVING BLOOD TRANSFUSION. NO DISTRESS NOTED. CALL LIGHT IN REACH. SIDE RAILS UP X2. BED LOW AND LOCKED. DIALYSIS NURSE PRESENT AT BEDSIDE.
--- NOTE | 2020-04-21 10:01 | NUR ---
Pt receiving dialysis and unavailable at this time. Will follow up as able. ALVAREZ PELLETIER Manager [employer] Spiritual Care Department O: [phone]
[2020-04-21] MEDS ORDERED: HEPARIN SOD (PORCINE) 1000 UNIT/ML 10ML MDV IV ONE (11:00)
--- NOTE | 2020-04-21 11:33 | NUR ---
FAXED CLINICALS TO [facility]
[2020-04-21] MEDS: SODIUM BICARBONATE 650 MG TAB PO SCH (12:25)
[2020-04-21] MEDS: ALLOPURINOL 100 MG TAB PO SCH (12:25)
--- NOTE | 2020-04-21 12:41 | NUR ---
Wafer Fabrication Technician visited pt as result of consult request by RN. Pt sitting in chair and states she is is "tired." Wafer Fabrication Technician provided hospitality and information on how to reach metal cutter, if needed. Pt indicated no need to follow at this time. ALVAREZ [employer] Spiritual Care Department O: [phone]
[2020-04-21] MEDS: PRAMIPEXOLE DIHYDROCHLORIDE 0.25 MG TAB PO SCH (19:59)
[2020-04-22] VITALS (8 sets, daily range): BP systolic 144–166; BP diastolic 59–68
[2020-04-22] MEDS: PIPERACILLIN/TAZO 2.25 GM 50 ML IV SCH ×3 (03:16→18:59)
[2020-04-22] MEDS: LEVOTHYROXINE SODIUM 75 MCG TAB PO SCH (04:55)
[2020-04-22] MEDS: NYSTATIN SUSPENSION 5 ML UDC PO SCH ×5 (04:55→22:03)
--- NOTE | 2020-04-22 07:09 | NUR ---
Bedside report and walking rounds completed with oncoming nurse. Patient in bed with call light within reach. No issues or concerns noted.
--- NOTE | 2020-04-22 07:20 | NUR ---
CALLED [facility] REGARDING NEEDING DIRECTIONS FOR PROCEDURE CONSENT, SPOKE TO TYREL, HE STATED THAT HE WOULD PAGE THE PHYSICIAN.
[2020-04-22] MEDS: INSULIN REGULAR, HUMAN 100 UNIT/1 ML 3ML VIAL SQ SCH ×4 (07:30→21:00)
[2020-04-22] MEDS: FUROSEMIDE INJ 10 MG/ML 4 ML VIAL IV SCH ×2 (09:03→12:50)
[2020-04-22] MEDS: FAMOTIDINE 20 MG/2 ML VIAL IV SCH ×2 (09:03→18:59)
[2020-04-22] MEDS ORDERED: MIDAZOLAM HCL 2 MG/2 ML VIAL ONE (09:37)
[2020-04-22] MEDS ORDERED: HEPARIN SOD (PORCINE) 1000 UNIT/ML SDV ONE (09:37)
[2020-04-22] MEDS ORDERED: FENTANYL CITRATE/PF 100MCG/2 ML INJ ONE (09:37)
[2020-04-22] MEDS ORDERED: CEFAZOLIN SOD 1 GM/NS 50ML 50 ML IV ONE (09:37)
[2020-04-22] MEDS ORDERED: LIDOCAINE HCL 1% LOCAL INJ 20 ML VIAL ONE (09:41)
[2020-04-22] MEDS ORDERED: SODIUM CHLORIDE 0.9% 250ML 250 ML ONE (09:42)
[2020-04-22 09:56] LABS: ANION GAP 17.2 mmol/L (8-16); CALCIUM 7.7 mg/dL (8.4-10.2); CREATININE, SERUM 4.5 mg/dL (0.57-1.11); POTASSIUM 4.2 mmol/L (3.5-5.1)
--- NOTE | 2020-04-22 10:49 | Diagnostic Imaging Report ---
Conversion of a nontunneled to tunneled dialysis catheter. History: Renal failure. Modality: Fluoroscopy. Sedation: Versed 1.5 mg and fentanyl 75 mcg was given intravenously for conscious sedation. Vital signs were monitored throughout the procedure by a nurse, and remained stable. Physician intra-service time was 20 minutes. Engineering Document Control Clerk: MD Srinivasan. Electromechanical Engineer: None. Approach: Right internal jugular vein Estimated blood loss: < 5 cc. Specimen: None. Fluoroscopy Time: 10.6 min. Dose (Ka,r): 1.0 mGy. Technique: Informed written consent was obtained. Discussion of risks, benefits, and alternatives were made with the patient. The patient expressed understanding and agreed to proceed. All elements maximal sterile barrier technique was utilized for this procedure, including utilization of sterile scrub solution for skin prep, a large sterile sheet to cover the areas of the patient that were not prepped, and hand hygiene, mask, head covering, and sterile gown for performing radiologist and scrub technologist. The skin was anesthetized with 2% lidocaine. A 0.35 inch diameter guidewire was inserted through the existing nontunneled dialysis catheter into the IVC. A subcutaneous tunnel was created in the right anterior chest wall by blunt dissection. A 19 cm tip to cuff right Lebanese Duraflow 2 catheter was brought through the tunnel. The existing nontunneled hemodialysis catheter was then removed over the guidewire. A peel-away sheath was placed in the right IJ vein and the catheter was advanced through the sheath, with its distal tip terminating in the right atrium. The peel-away sheath was removed. The ports were flushed and aspirated easily following placement. The lumens were locked with heparin. The catheter was sutured to the skin to secure its placement. The small jugular incision site was closed using resorbable suture. A resorbable pursestring suture was placed at the catheter exit site. Vital signs were monitored throughout the procedure by a nurse, and remained stable. The patient tolerated the procedure well and left the department in the same condition. Results: Spot radiograph of the chest demonstrates the new dialysis catheter to lie in the expected position with its tip overlying the superior right atrium. Impression: Successful, uncomplicated conversion of a nontunneled right internal jugular to a tunneled dialysis catheter. Signed by: Dr. Jerome Mattson MD on 04/22/2020 10:46 AM
[2020-04-22] MEDS: SODIUM BICARBONATE 650 MG TAB PO SCH (11:33)
[2020-04-22] MEDS: CARVEDILOL 12.5 MG TAB PO SCH ×2 (11:33→18:59)
[2020-04-22] MEDS: ALLOPURINOL 100 MG TAB PO SCH (11:34)
[2020-04-22] MEDS: PRAMIPEXOLE DIHYDROCHLORIDE 0.25 MG TAB PO SCH (22:03)
[2020-04-23] VITALS (8 sets, daily range): BP systolic 112–150; BP diastolic 47–77
[2020-04-23] MEDS: PIPERACILLIN/TAZO 2.25 GM 50 ML IV SCH ×5 (01:44→21:04)
--- NOTE | 2020-04-23 02:14 | NUR ---
Hibiclens bath given.maintaining npo for procedure.
[2020-04-23] MEDS: NYSTATIN SUSPENSION 5 ML UDC PO SCH ×5 (05:00→21:04)
[2020-04-23] MEDS: LEVOTHYROXINE SODIUM 75 MCG TAB PO SCH (05:07)
--- NOTE | 2020-04-23 06:48 | NUR ---
Bed side shift report given to oncoming Rn.stable condition.
[2020-04-23] MEDS: INSULIN REGULAR, HUMAN 100 UNIT/1 ML 3ML VIAL SQ SCH ×4 (07:30→21:00)
[2020-04-23] MEDS: CARVEDILOL 12.5 MG TAB PO SCH ×2 (08:38→17:05)
[2020-04-23] MEDS: FAMOTIDINE 20 MG/2 ML VIAL IV SCH ×2 (08:42→17:05)
[2020-04-23] MEDS: FUROSEMIDE INJ 10 MG/ML 4 ML VIAL IV SCH ×2 (08:42→12:00)
[2020-04-23] MEDS ORDERED: BUPIVACAINE 0.25%/EPI 30ML SDV INJ ONE (12:30)
[2020-04-23] MEDS ORDERED: SODIUM CHLORIDE 0.9% 500ML 500 ML ONE (12:34)
[2020-04-23 12:35] LABS: HEMATOCRIT 29.2 % (34.2-44.1); HEMOGLOBIN 9.3 g/dL (12.0-16.0)
[2020-04-23] MEDS ORDERED: VANCOMYCIN 1GM/NS 250 ML 250 ML ONE (12:57)
--- NOTE | 2020-04-23 14:30 | NUR ---
CALLED Dariela Douglas TO GET UPDATE LEFT VOICE MAIL PENDING AUTH.
--- NOTE | 2020-04-23 14:47 | NUR ---
Nutrition Screen Note RD Recommendation for Physician: - As feasible, ADAT to goal of 1800 ADA, GI Soft Plan of Care: RD following, monitoring for tolerance and adequacy Nutrition reason for involvement: LOS Primary Diagnose(s): abdominal pain PMH: ESRD on PD, CHF, HTN, DM2, dyslipidemia, cholecystectomy Ht: 59 in Wt: 208 lb BMI: 42 kg/m2 IBW: 97.[address] Assessment: (04/23) 59 YOF admitted for abdominal pain requiring an ex-lap and BRIANA. Pt evaluated today for LOS. Pt out of the room at time of attempted visits- in OR. Pt back to OR, per chart pt with continued abdominal pain. Pt with 25-100% intake per chart. Chart reviewed. Labs and meds reviewed. Will continue to monitor. Current Diet: NPO- for surgery Malnutrition Evaluation (04/23/20) The patient does not meet criteria for a specified degree of malnutrition at this time. Will re-evaluate at follow-up as appropriate. Diet Education Needs Assessment: Diet education not indicated. Diet tolerance: pending after surgery Nutrition Care Level: low Signed: Cassidy Peacock RD, LD, [facility]
[2020-04-23] MEDS ORDERED: FENTANYL CITRATE/PF 100MCG/2 ML INJ ONE ×2 (15:11→19:18)
[2020-04-23] MEDS ORDERED: ONDANSETRON HCL INJ 2MG/ML 2ML 2 MG/ML VIAL ONE ×2 (15:24→19:28)
[2020-04-23] MEDS: ALLOPURINOL 100 MG TAB PO SCH (17:06)
[2020-04-23] MEDS: SODIUM BICARBONATE 650 MG TAB PO SCH (17:06)
[2020-04-23] MEDS: ONDANSETRON HCL INJ 2MG/ML 2ML 2 MG/ML VIAL IV PRN ×2 (17:21→21:30)
[2020-04-23] MEDS: MORPHINE SULFATE INJ 4 MG/ML INJ 1ML IV PRN ×2 (17:21→21:35)
--- NOTE | 2020-04-23 17:45 | Operative Report ---
DATE OF PROCEDURE: 04/23/2020 SURGEON: Arvind Mai MD PREOPERATIVE DIAGNOSIS: Peritoneal dialysis catheter dysfunction. POSTOPERATIVE DIAGNOSIS: Peritoneal dialysis catheter dysfunction. OPERATIVE PROCEDURE: Laparoscopic revision of peritoneal dialysis catheter. ANESTHESIA: General. INDICATION: The patient is a 59-year-old female with history of renal end-stage disease with peritoneal dialysis catheter placement several weeks ago, which became entwined in the small bowel. The patient underwent laparoscopic relocation and re- position of the catheter a week ago, but the past catheter still is not functional. She consented for laparoscopic revision with possible removal. PROCEDURE FINDINGS: Adhesions from small bowel to the anterior abdominal wall with the swan-neck of the catheter containing a long string of fribrino-exudative clots. DESCRIPTION OF PROCEDURE: The patient was brought to the OR, intubated. Abdomen was prepped with Betadine and draped in sterile fashion. The left subcostal direct port access carried out with the laparoscope and insufflation then began. Under direct vision, the area of the port in the infraumbilical region is an approach. An adhesion from the small bowel to that area is noted. Using blunt dissection, the small bowel was dissected off the anterior abdominal wall and the tip of the peritoneal dialysis catheter is located in the upper pelvis attached to the pelvic wall and bowel. The tip of the catheter easily from the surrounding structure and using an extra port in the left lower quadrant, the tip of the peritoneal dialysis catheter is exteriorized through the 8 mm port and the fibrin clot inside the catheter is stripped off easily. At this point, the catheter was then returned into the pelvis and placed in the pericecal area away from the small bowel and saline solution was flushed through the catheter without impedance and the catheter is also draining fluid return easily without interruption. At this point, with hemostasis achieved, we proceeded to suction out all the irrigating fluid and blood. Hemostasis achieved. All ports removed under direct vision. As mentioned, the tip of the catheter is placed in the pericecal area away from the small bowel. Ports removed and the skin closed with subcuticular stitch of 3-0 Vicryl. Dermabond is in place on skin. The patient is extubated and transported to recovery room. BLOOD LOSS: 10 mL. MD LATRICE Mock/RICHARD /[id number] MYA
--- NOTE | 2020-04-23 18:55 | NUR ---
Received the patient in report.emmanuel in the bed.
[2020-04-23] MEDS ORDERED: MIDAZOLAM HCL 2 MG/2 ML VIAL ONE (19:18)
[2020-04-23] MEDS ORDERED: ROCURONIUM BROMIDE 10 MG/ML 5ML VIAL IV ONE (19:28)
[2020-04-23] MEDS ORDERED: GLYCOPYRROLATE INJ 0.2 MG/ML VIAL ONE (19:28)
[2020-04-23] MEDS ORDERED: NEOSTIGMINE 1 MG/ML 10ML VIAL ONE (19:28)
[2020-04-23] MEDS ORDERED: PROPOFOL IV EMULSION 10 MG/ML 20 ML VIAL ONE (19:28)
[2020-04-23] MEDS ORDERED: LIDOCAINE HCL 2% LOCAL INJ 5 ML SDV VIAL INJ ONE (19:28)
[2020-04-23] MEDS ORDERED: SEVOFLURANE INHAL SOLN 250 ML PEN BTL ONE (19:28)
[2020-04-23] MEDS ORDERED: ETOMIDATE 2 MG/ML 10 ML INJ IV ONE (19:28)
[2020-04-23] MEDS: PRAMIPEXOLE DIHYDROCHLORIDE 0.25 MG TAB PO SCH (21:04)
[2020-04-24] VITALS (7 sets, daily range): BP systolic 117–134; BP diastolic 51–64
--- NOTE | 2020-04-24 01:45 | NUR ---
Hemodialysis completed.removed 1.4 litre.
[2020-04-24] MEDS: PIPERACILLIN/TAZO 2.25 GM 50 ML IV SCH ×4 (03:37→22:01)
[2020-04-24] MEDS: ONDANSETRON HCL INJ 2MG/ML 2ML 2 MG/ML VIAL IV PRN (05:29)
[2020-04-24] MEDS: MORPHINE SULFATE INJ 4 MG/ML INJ 1ML IV PRN (05:29)
[2020-04-24] MEDS: LEVOTHYROXINE SODIUM 75 MCG TAB PO SCH (05:29)
[2020-04-24] MEDS: NYSTATIN SUSPENSION 5 ML UDC PO SCH ×5 (06:03→22:12)
--- NOTE | 2020-04-24 07:02 | NUR ---
Bed side shift report given to oncoming rn.stable condition.
[2020-04-24] MEDS: INSULIN REGULAR, HUMAN 100 UNIT/1 ML 3ML VIAL SQ SCH ×4 (07:30→21:00)
[2020-04-24] MEDS: ALLOPURINOL 100 MG TAB PO SCH (08:33)
[2020-04-24] MEDS: FUROSEMIDE INJ 10 MG/ML 4 ML VIAL IV SCH ×2 (08:33→12:30)
[2020-04-24] MEDS: CARVEDILOL 12.5 MG TAB PO SCH ×2 (08:33→16:29)
[2020-04-24] MEDS: FAMOTIDINE 20 MG/2 ML VIAL IV SCH ×2 (08:33→16:28)
[2020-04-24] MEDS: SODIUM BICARBONATE 650 MG TAB PO SCH (08:33)
--- NOTE | 2020-04-24 11:37 | NUR ---
Per patient to have HD today. Marat with HD center aware
[2020-04-24] MEDS: HYDROCODONE/APAP 5MG-325MG TAB PO PRN (12:30)
[2020-04-24 13:08] LABS: BASOPHILS % 0.3 % (0.0-1.0); EOSINOPHILS # (AUTO) 0.3 (0.0-0.4); EOSINOPHILS % 4.7 % (0.0-6.0); HEMATOCRIT 28.7 % (34.2-44.1); LYMPHOCYTES # (AUTO) 1.2 (1.0-3.2); LYMPHOCYTES % 17.9 % (18.0-39.1); MEAN CORPUSCULAR HEMOGLOBIN 30.3 pg (28-32); MEAN CORPUSCULAR HGB CONC 31.4 g/dL (31-35); MEAN CORPUSCULAR VOLUME 96.6 fL (81-99); MONOCYTES # (AUTO) 0.9 (0.2-0.8); NEUTROPHILS # (AUTO) 4.2 (2.1-6.9); NEUTROPHILS % 62.5 % (38.7-80.0); RED BLOOD COUNT 2.97 x10e6/uL (3.6-5.1)
[2020-04-24 13:28] LABS: ALBUMIN 2.2 g/dL (3.5-5.0); ALBUMIN/GLOBULIN RATIO 0.5 (0.8-2.0); ALKALINE PHOSPHATASE 96 IU/L (40-150); ANION GAP 15.3 mmol/L (8-16); BLOOD UREA NITROGEN 15 mg/dL (7-26); BUN/CREATININE RATIO 5 (6-25); CALCIUM 7.7 mg/dL (8.4-10.2); CARBON DIOXIDE 28 mmol/L (22-29); CHLORIDE 95 mmol/L (98-107); CREATININE, SERUM 3.23 mg/dL (0.57-1.11); EST GLOMERULAR FILTRATION RATE 15 ML/MIN (60-); GLUCOSE 201 mg/dL (74-118); POTASSIUM 5.3 mmol/L (3.5-5.1); SODIUM 133 mmol/L (136-145)
[2020-04-24 13:32] LABS: ALANINE AMINOTRANSFERASE < 6 IU/L (0-55)
--- NOTE | 2020-04-24 15:00 | NUR ---
Per HD nurse, "Patient will have HD tomorrow"
[2020-04-24 15:26] LABS: PLATELET COUNT 106 x10e3/uL (140-360)
[2020-04-24] MEDS ORDERED: SOD POLYSTYRENE SULFONATE SUSP 15 GM/60 ML BTL PO ONE (15:45)
[2020-04-24] MEDS ORDERED: LACTULOSE SYRUP 20 GM/30 ML UDC PO ONE (15:45)
--- NOTE | 2020-04-24 19:10 | NUR ---
Report given to oncoming nurse of patient's status.Resting in bed. Side rails upx2, call light within reach. No s/s of acute distress noted.
[2020-04-24] MEDS: PRAMIPEXOLE DIHYDROCHLORIDE 0.25 MG TAB PO SCH (22:11)
[2020-04-25] VITALS (8 sets, daily range): BP systolic 92–160; BP diastolic 45–63
[2020-04-25] MEDS: HYDROCODONE/APAP 5MG-325MG TAB PO PRN ×3 (04:49→22:13)
[2020-04-25] MEDS: PIPERACILLIN/TAZO 2.25 GM 50 ML IV SCH ×4 (04:50→22:05)
[2020-04-25] MEDS: NYSTATIN SUSPENSION 5 ML UDC PO SCH ×5 (04:56→21:00)
[2020-04-25] MEDS: LEVOTHYROXINE SODIUM 75 MCG TAB PO SCH (04:56)
[2020-04-25 05:30] LABS: BASOPHILS # (AUTO) 0.1 (0.0-0.1); BASOPHILS % 0.7 % (0.0-1.0); EOSINOPHILS # (AUTO) 0.5 (0.0-0.4); EOSINOPHILS % 6.7 % (0.0-6.0); HEMATOCRIT 27.4 % (34.2-44.1); HEMOGLOBIN 8.9 g/dL (12.0-16.0); LYMPHOCYTES # (AUTO) 1.7 (1.0-3.2); LYMPHOCYTES % 22.6 % (18.0-39.1); MEAN CORPUSCULAR HEMOGLOBIN 32.4 pg (28-32); MEAN CORPUSCULAR HGB CONC 32.5 g/dL (31-35); MEAN CORPUSCULAR VOLUME 99.6 fL (81-99); MONOCYTES # (AUTO) 1.2 (0.2-0.8); MONOCYTES % 16.5 % (4.4-11.3); NEUTROPHILS # (AUTO) 3.9 (2.1-6.9); NEUTROPHILS % 52.8 % (38.7-80.0); PLATELET COUNT 110 x10e3/uL (140-360); RED BLOOD COUNT 2.75 x10e6/uL (3.6-5.1); RED CELL DISTRIBUTION WIDTH 16.1 % (11.7-14.4)
[2020-04-25 05:57] LABS: ANION GAP 12.8 mmol/L (8-16); CALCIUM 7.4 mg/dL (8.4-10.2); CREATININE, SERUM 4.35 mg/dL (0.57-1.11); POTASSIUM 3.8 mmol/L (3.5-5.1)
[2020-04-25] MEDS ORDERED: SODIUM CHLORIDE 0.9% 1000ML 2,000 ML ONE (08:00)
[2020-04-25] MEDS: FUROSEMIDE INJ 10 MG/ML 4 ML VIAL IV SCH ×2 (08:00→12:00)
[2020-04-25] MEDS: CARVEDILOL 12.5 MG TAB PO SCH ×2 (08:30→17:03)
[2020-04-25] MEDS: ALLOPURINOL 100 MG TAB PO SCH (08:31)
[2020-04-25] MEDS: SODIUM BICARBONATE 650 MG TAB PO SCH (08:31)
[2020-04-25] MEDS: FAMOTIDINE 20 MG/2 ML VIAL IV SCH ×2 (08:32→16:58)
[2020-04-25] MEDS: INSULIN REGULAR, HUMAN 100 UNIT/1 ML 3ML VIAL SQ SCH ×4 (09:35→21:55)
--- NOTE | 2020-04-25 19:15 | NUR ---
BEDSIDE REPORT RECEIVED FROM DAY RN. PT IS ALERT AND ORIENETED X3. RESPIRATIONS ARE EVEN AND UNLABORED. RT TUNNELED SUBCLAVIAN CATH INTACT. 20 G SL IN RT AC. SITE HEALTHY. PD CATH INTACT- DRESSING DRY AND INTACT. PT DENIES PAIN AT THIS TIME. CALL LIGHT WITHIN REACH. BED LOCKED AND IN LOW POSITION.
[2020-04-25] MEDS: PRAMIPEXOLE DIHYDROCHLORIDE 0.25 MG TAB PO SCH (22:06)
[2020-04-26] VITALS (11 sets, daily range): BP systolic 105–157; BP diastolic 46–69
[2020-04-26] MEDS: PIPERACILLIN/TAZO 2.25 GM 50 ML IV SCH ×4 (04:19→20:15)
[2020-04-26] MEDS: NYSTATIN SUSPENSION 5 ML UDC PO SCH ×5 (04:26→20:47)
[2020-04-26] MEDS: LEVOTHYROXINE SODIUM 75 MCG TAB PO SCH (05:36)
[2020-04-26] MEDS: FAMOTIDINE 20 MG/2 ML VIAL IV SCH ×2 (08:13→17:14)
[2020-04-26] MEDS: ALLOPURINOL 100 MG TAB PO SCH (08:13)
[2020-04-26] MEDS: CARVEDILOL 12.5 MG TAB PO SCH ×2 (08:13→17:15)
[2020-04-26] MEDS: FUROSEMIDE INJ 10 MG/ML 4 ML VIAL IV SCH ×2 (08:13→12:05)
[2020-04-26] MEDS: INSULIN REGULAR, HUMAN 100 UNIT/1 ML 3ML VIAL SQ SCH ×4 (08:24→20:15)
[2020-04-26] MEDS: SODIUM BICARBONATE 650 MG TAB PO SCH (09:08)
--- NOTE | 2020-04-26 19:05 | NUR ---
Patient visited in room during nursing rounds. Patient alert and oriented x3. Ambulates with use of walker and assistance prn. Peritoneal dialysis catheter in place on abd and surrounding site covered with dressing (C/D/I). Pt has Right tunnel dialysis catheter. Pt states pain on PD cath site off and on. Pt is oliguric. Will medicate pt accordingly. Call samano within reach.
[2020-04-26] MEDS ORDERED: SODIUM CHLORIDE 0.9% 250ML 250 ML ONE (20:04)
[2020-04-26] MEDS: PRAMIPEXOLE DIHYDROCHLORIDE 0.25 MG TAB PO SCH (20:15)
[2020-04-26] MEDS: HYDROCODONE/APAP 5MG-325MG TAB PO PRN (20:15)
--- NOTE | 2020-04-26 22:05 | NUR ---
After 6 attempts (done by 3 different nurses), a peripheral IV (24 gauge) successfully inserted on right forearm of patient. Patient's veins are small and rolling. Will pass on information to incoming dayshift nurse.
[2020-04-27] VITALS: BP 116/50
[2020-04-27] MEDS: HYDROCODONE/APAP 5MG-325MG TAB PO PRN (03:15)
[2020-04-27] MEDS: PIPERACILLIN/TAZO 2.25 GM 50 ML IV SCH ×2 (03:18→08:54)
[2020-04-27 04:00] VITALS: BP 142/51
[2020-04-27] MEDS: NYSTATIN SUSPENSION 5 ML UDC PO SCH ×3 (04:56→09:00)
[2020-04-27] MEDS: LEVOTHYROXINE SODIUM 75 MCG TAB PO SCH (06:11)
[2020-04-27 07:30] VITALS: BP_SYST 133; BP_SYST 138; BP_DIAS 52
[2020-04-27] MEDS: INSULIN REGULAR, HUMAN 100 UNIT/1 ML 3ML VIAL SQ SCH ×2 (07:58→11:30)
[2020-04-27 08:00] VITALS: BP 138/52
[2020-04-27] MEDS: ALLOPURINOL 100 MG TAB PO SCH (08:54)
[2020-04-27] MEDS: SODIUM BICARBONATE 650 MG TAB PO SCH (08:54)
[2020-04-27] MEDS: FUROSEMIDE INJ 10 MG/ML 4 ML VIAL IV SCH (08:54)
[2020-04-27] MEDS: CARVEDILOL 12.5 MG TAB PO SCH (08:54)
[2020-04-27] MEDS: FAMOTIDINE 20 MG/2 ML VIAL IV SCH (08:54)
--- NOTE | 2020-04-27 11:28 | NUR ---
Patient received discharge order from Dr. Dawson once Dr. Bellamy and cleared the patient. Patient already received information and education on dialysis clinic, when to go, and where to go via case management. Patient was given discharge paperwork, IV was removed at 1120 and covered with a clean, dry dressing, and tele box was removed. Patient is dressed and ready waiting for ride to come. Will continue to monitor. Addendum: 04/27/20 at 1144 by Maile Rodrigez RN Patient discharged in wheelchair to sister's car at 1136. No issues or complaints.
--- NOTE | 2020-04-27 17:00 | NUR ---
SECURED OP DIALYSIS CHAIR MONDAY AT [facility] T-TH-SAT AT 12:40PM COPY OF SCHEDULE GIVEN AND EXPLAINED TO PT COPY ON CHART PT TO START Monday AT 12:40
== END 2020-04-27 11:45 | disposition home or self-care (01) | DRG 907 ==
LOC: ER 15:21 → ERHOLD 18:31 → MED/SURG 20:39
PROVIDERS: ADMIT Internal Medicine; ATTEND Internal Medicine
PROC: 0WWG43Z Revision of Infusion Device in Peritoneal Cavity, Percutaneous Endoscopic Approach (ICD-10-PCS; 2020-04-18)
PROC: 3E1M39Z Irrigation of Peritoneal Cavity using Dialysate, Percutaneous Approach (ICD-10-PCS; 2020-04-18)
PROC: 0DN84ZZ Release Small Intestine, Percutaneous Endoscopic Approach (ICD-10-PCS; principal; 2020-04-18 08:30)
PROC: 30233N1 Transfusion of Nonautologous Red Blood Cells into Peripheral Vein, Percutaneous Approach (ICD-10-PCS; 2020-04-20)
PROC: 0JH63XZ Insertion of Tunneled Vascular Access Device into Chest Subcutaneous Tissue and Fascia, Percutaneous Approach (ICD-10-PCS; 2020-04-22)
PROC: 02HV33Z Insertion of Infusion Device into Superior Vena Cava, Percutaneous Approach (ICD-10-PCS; 2020-04-22)
PROC: 0WWG43Z Revision of Infusion Device in Peritoneal Cavity, Percutaneous Endoscopic Approach (ICD-10-PCS; 2020-04-23)
DX: T85.611A Breakdown (mechanical) of intraperitoneal dialysis catheter, initial encounter (principal); N18.6 End stage renal disease; K56.690 Other partial intestinal obstruction; I13.2 Hypertensive heart and chronic kidney disease with heart failure and with stage 5 chronic kidney disease, or end stage renal disease; R18.8 Other ascites; Z99.2 Dependence on renal dialysis; K74.60 Unspecified cirrhosis of liver; E11.22 Type 2 diabetes mellitus with diabetic chronic kidney disease; I50.9 Heart failure, unspecified; Z79.4 Long term (current) use of insulin; E78.5 Hyperlipidemia, unspecified; M06.9 Rheumatoid arthritis, unspecified; Z11.59 Encounter for screening for other viral diseases
CPT/HCPCS: 36415; 36556; 36558; 74177; 74470; 76937; 77001; 80048; 80053; 82550; 82553; 82948; 83690; 83735; 84100; 84132; 84484; 85014; 85018; 85025; 85610; 86704; 86706; 86850; 86900; 86920; 87340; 87635; 93005; 94640; 96372; 99284; C1769; C1892; J0610; J0690; J0696; J1100; J1644; J1817; J1940; J2001; J2150; J2250; J2270; J2405; J2543; J2710; J3010; J3370; J7030; J7040; J7050; J7799; P9016; Q9967

== ENCOUNTER 2020-06-14 20:10 | Emergency (ER) | payer MEDICARE, OTHER ==
[~2020-06-14] VITALS: Ht 149.9 cm; Wt 94.3 kg
[~2020-06-14 20:10] MED LIST: ALLOPURINOL100 MG PO; AMLODIPINE BESYL5 MG PO; ATORVASTATIN CA20 MG PO; CARVEDILOL12.5 MG PO; CIPRO500 MG PO; CLOPIDOGREL75 MG PO; CYCLOBENZAPRINE10 MG PO; FUROSEMIDE20 MG PO; GABAPENTIN300 MG PO; GLIPIZIDE5 MG PO; HUMIRA40 MG/0.1 INJ; LEVOTHYROXINE75 MCG PO; METRONIDAZOLE500 MG PO; PLAVIX75 MG PO; PRAMIPEXOLE D0.25 MG PO; PREDNISONE5 MG PO; SODIUM BICARBO650 MG PO; TIZANIDINE HCL4 M1 PO; ULTRAM50 MG PO; [UNRECOGNIZED DRUG - OTHER]; [UNRECOGNIZED DRUG - OTHER] PO
[2020-06-14] MEDS ORDERED: KETOROLAC TROMETHAMINE 60 MG/2 ML VIAL ONE (20:59)
[2020-06-14] MEDS ORDERED: HYDROCODONE/APAP 5MG-325MG TAB PO ONE (21:00)
[2020-06-14] MEDS ORDERED: KETOROLAC TROMETHAMINE 60 MG/2 ML VIAL IM ONE (21:00)
[2020-06-14] MEDS ORDERED: ORPHENADRINE CITRATE 30 MG/ML VIAL IM ONE (21:00)
[2020-06-14] MEDS ORDERED: HYDROCODONE/APAP 5MG-325MG TAB ONE (21:00)
[2020-06-14] MEDS ORDERED: ORPHENADRINE CITRATE 30 MG/ML VIAL ONE (21:00)
--- OUTSIDE RECORDS SUMMARY | 2020-06-14 22:14 | XMS REPORT | Clinical Summary ---
Author Author S[facility] Address Unknown Phone Unavailable Care Team Providers Care Aircraft Maintenance Technician Name Role Phone PCP Unavailable Allergies Not on File Medications Not on file Active Problems Not on file Encounters Care Team Description Date Type Specialty Kale Schmid 06/05/2020 Documentation Transplant Kale Schmid Kidney Transplant Pre-evaluation 06/05/2020 Telephone Transplant Kale Schmid 06/05/2020 Documentation Transplant Kale Schmid 06/05/2020 Abstract Transplant Kale Schmid Kidney Transplant Pre-evaluation 06/02/2020 Telephone Transplant Giselle Dobson RN 05/08/2020 Documentation Transplant Kale Schmid 04/09/2020 Abstract Transplant Schmid, Kale 04/03/2020 Abstract Transplant SchmidMaxxdesire 04/02/2020 Abstract Transplant after 06/14/2019 Social History Date Tobacco Use Types Packs/Day Years Used Never Smoker Sex Assigned at Date Recorded Not on file Industry Job Start Date Occupation Not on file Not on file Not on file Travel End Travel History Travel Start No recent travel history available. Last Filed Vital Signs Time Taken Vital Sign Reading - Blood Pressure - - Pulse - - Temperature - - Respiratory Rate - - Oxygen Saturation - - Inhaled Oxygen - Concentration 04/02/2020 3:54 PM CDT Weight 89.8 kg (198 lb) 04/02/2020 3:54 PM CDT Height 149.9 cm (4' 11") 04/02/2020 3:54 PM CDT Body Mass Index 39.99 Plan of Treatment Care Team Description Date Type Specialty 06/24/2020 Video - Transplant Telemedicine Edgar Hamlin MD [facility] [address] [place], [place] [id number] 07/08/2020 Office Visit Cardiology Health Maintenance Due Date Last Done Comments BREAST CANCER SCREENING 1958 COLON CANCER SCREENING 1958 COLONOSCOPY CERVICAL CANCER SCREENING 1979 PAP ONLY (Age 21-65) LIPID PANEL 2003 Medicare IPPE (WELCOME TO 10/30/2019 MEDICARE) INFLUENZA VACCINE (#1) 2020 Results Not on fileafter 06/14/2019 Insurance Payer Benefit Subscriber ID Type Phone Address Plan / Group [employer]ET[employer] - MEDICARE MGD CARE AETNA xxxxxxxx [facility] [address] [place] [address] O POS [id number]
--- OUTSIDE RECORDS SUMMARY | 2020-06-14 22:14 | XMS REPORT | Continuity of Care Document ---
Author Author [facility] t Organization [facility] Address [address] [place] [address] Phone Unavailable Care Team Providers Care Boardmarker Name Role Phone MD TO SMITH PCP Kale Schmid Attphys Unavailable Ashlyn Dobson RN Attphys Unavailable [facility] WELLS Attphys Unavailable [facility] Admphys Unavailable Payers Payer Name Policy Type Policy Number Effective Date Expiration Date Raz duggan AETNA - MEDICARE MGD CAREAETNA MEDICARE HMO POSxxxxxxxxMaps [id number] [id number] [address] xxxxxxxx [facility] Aetna Medicare Replacement [id number] 2019 00:00:00 [facility] Cdc Review Covid19 [id number] [facility] Problems Condition Name Condition Details Condition Category Status Onset Date Resolution Date Last Treatment Date Treating Clinician Comments Source Abdominal pain Problem Active [facility] Perforated abdominal viscus Problem Active [facility] Allergies, Adverse Reactions, Alerts Allergy Name Allergy Type Status Severity Reaction(s) Onset Date Inacti ve Date Treating Clinician Comments Source No Known Allergies DA Active U 2020-03-20 00:00:00 [facility] No Known Allergies DA Active U 2017-11-16 00:00:00 [facility] Social History Social Habit Start Date Stop Date Quantity Comments Source Sex Assigned At [facility] Smoking Status Start Date Stop Date Source Never smoker [facility] Medications Ordered Medication Name Filled Medication Name Start Date Stop Da te Current Medication? Ordering Clinician Indication Dosage Frequency Signature (SIG) Comments Components Source Adalimumab (Humira) 40 Mg/0.8 Ml PEN.IJ.KIT Adalimumab (Humira) 40 Mg/0.8 Ml PEN.IJ.KIT Yes 40 Q 2 Wk [facility] Allopurinol Allopurinol Yes 100 Daily [facility] Amlodipine Besylate Amlodipine Besylate Yes 5 Daily [facility] Atorvastatin Calcium Atorvastatin Calcium Yes 20 Daily [facility] Carvedilol Carvedilol Yes 25 Daily [facility] Clopidogrel Bisulfate (Plavix) 75 Mg TABLET Clopidogre l Bisulfate (Plavix) 75 Mg TABLET Yes Daily [facility] Clopidogrel Bisulfate (Clopidogrel) 75 Mg TABLET Clopi dogrel Bisulfate (Clopidogrel) 75 Mg TABLET Yes 75 Daily [facility] Cyclobenzaprine Hcl Cyclobenzaprine Hcl Yes 10 Daily [facility] Furosemide Furosemide Yes 20 Daily [facility] Gabapentin Gabapentin Yes 300 Daily [facility] Glipizide Glipizide Yes 5 Daily [facility] Levothyroxine Sodium Levothyroxine Sodium Yes 75 Daily [facility] Metronidazole Metronidazole Yes 500 Daily [facility] Pramipexole Di-Hcl (Pramipexole Dihydrochloride) 0.25 Mg TABLET Pramipexole Di- Hcl (Pramipexole Dihydrochloride) 0.25 Mg TABLET Yes . 25 Bedtime [facility] Prednisone Prednisone Yes 2.5 As Needed for Arth ritis [facility] Sodium Bicarbonate Sodium Bicarbonate Yes 650 Da kaykay [facility] Sulfurzynine Sulfurzynine Yes 500 Twice A Day [facility] Tizanidine Hcl Tizanidine Hcl Yes 4 As Needed as needed for Muscle Relaxer [facility] Tramadol Hcl (Ultram) 50 Mg TABLET Tramadol Hcl (Ultram) 50 Mg TABLET Yes 50 As Needed [facility] Ciprofloxacin Hcl (Cipro) 500 Mg TABLET Ciprofloxacin Hcl (C ipro) 500 Mg TABLET 2020-04-27 00:00:00 No 250 Daily [facility] Vital Signs Vital Name Observation Time Observation Value Comments Source Body Temperature 2020-04-27 08:00:00 97.9 [degF] [facility] Weight 2020-04-17 21:09:00 208 [lb_av] [facility] BMI (Body Mass Index) 2020-04-17 21:09:00 42.0 kg/m2 [facility] Body height 2020-04-02 15:54:00 149.9 cm [facility] Body weight Measured 2020-04-02 15:54:00 89.812 kg [facility] BMI 2020-04-02 15:54:00 39.99 kg/m2 [facility] Procedures Procedure Date / Time Performed Performing Clinician [facility] e Ultrasound guidance for vascular access 2020-04-20 00:00:00 [facility] Computed tomography of abdomen and pelvis with contrast 00:00:00 [facility] Plan of Care Planned Activity Planned Date Details Comments Source Future Scheduled Test 2020-06-30 00:00:00 INFLUENZA VACCINE (#1) [code = INFLUENZA VACCINE (#1)] [facility] Future Scheduled Test 2019-10-30 00:00:00 Medicare IPPE (WEL COME TO MEDICARE) [code = Medicare IPPE (WELCOME TO MEDICARE)] [facility] Future Scheduled Test 2003 00:00:00 Lipid panel (proce dure) [code = 04339934] [facility] Future Scheduled Test 1979 00:00:00 Screening for raffy gnant neoplasm of cervix (procedure) [code = 013374384] [facility] Future Scheduled Test 1958 00:00:00 Screening for raffy gnant neoplasm of breast (procedure) [code = 378205370] [facility] Future Scheduled Test 1958 00:00:00 Screening for raffy gnmarii neoplasm of colon (procedure) [code = 943483743] [facility] Instructions Abdominal Pain - Adult [facility] Instructions Hemodialysis [facility] Encounters Start Date/Time End Date/Time Encounter Type [facility] Encounter ID Source 2020-04-17 18:31:00 2020-04-27 11:45:00 Discharged Inpatient 1 [facility] WELLS [facility] [id number] [facility] Results Test Description Test Time Test Comments Results Result Comments Source POTASSIUM 2020-05-18 10:24:00 Test Item POTASSIUM (test code = K) 3.2 mmol/L 3.5-5.1 L [id number] 08:31:00* Test Item Value Reference Range Interpretation Comments GLUBED (test code = GLUBED) 153 mg/dL 74-106 H Performed by certified trimming press operator at [facility] Novel Coronavirus 2019 [id number] 00:54:00* Test Item Value Reference Range Interpretation Comments Novel Coronavirus 2019 Inhouse (test code = COVNONPUI) Negative Negative Novel Coronavirus 2019 [id number] 00:54:00* Test Item Value Reference Range Interpretation Comments Novel Coronavirus 2019 Inhouse (test code = COVNONPUI) Negative Negative COMPREHENSIVE METABOLIC [id number] 10:26:00* Test Item Value Reference Range Interpretation Comments SODIUM (test code = NA) 140 mmol/L 136-145 N POTASSIUM (test code = K) 3.0 mmol/L 3.5-5.1 L Re sults called to by [email or web address] 05/13/20 1026Critical results verified and read back by Nurse? CHLORIDE (test code = CL) 101.0 mmol/L 98-107 N CARBON DIOXIDE (test code = CO2) 35.0 mmol/L 21-32 H ANION GAP (test code = GAP) 7.0 10-20 L GLUCOSE (test code = GLU) 136 mg/dL 74-106 H BLOOD UREA NITROGEN (test code = BUN) 17 mg/dL 7-18 N GLOMERULAR FILTRATION RATE (test code = GFR) 17 mL/min >=60 Estimated GFR by using Modified MDRD formula.Chronic kidney disease is defined as either kidney damageor GFR <60 mL/min/1.73 m2 for >3 months. CREATININE (test code = CREAT) 2.80 mg/dL 0.55-1.02 H Note change in reference range due to change in reagent. BUN/CREATININE RATIO (test code = BUN/CREA) 6.1 10-20 L TOTAL PROTEIN (test code = PROT) 8.1 gram/dL 6.4-8.2 N ALBUMIN (test code = ALB) 2.7 g/dL 3.4-5.0 L GLOBULIN (test code = GLOB) 5.4 gram/dL 2.7-4.2 H ALBUMIN/GLOBULIN RATIO (test code = A/G) 0.5 0.75-1.50 L CALCIUM (test code = CA) 7.8 mg/dL 8.5-10.1 L BILIRUBIN TOTAL (test code = BILT) 0.30 mg/dL 0.0-1.0 N SGOT/AST (test code = AST) 35 IUnit/L 15-37 N SGPT/ALT (test code = ALT) 20 IUnit/L 12-78 N ALKALINE PHOSPHATASE TOTAL (test code = ALKP) 176 IUnit/L 45-117 H Note change in reference range due to change in reagent. CBC W/AUTO [id number] 09:48:00* Test Item Value Reference Range Interpretation Comments WHITE BLOOD CELL (test code = WBC) 5.0 K/mm3 4.5-12.5 N RED BLOOD CELL (test code = RBC) 2.88 mill/mm3 3.7-5.2 L HEMOGLOBIN (test code = HGB) 9.0 gram/dL 11.5-15.5 L HEMATOCRIT (test code = HCT) 29.4 % 36.0-46.0 L MEAN CELL VOLUME (test code = MCV) 102.1 fL 80-98 H MEAN CELL HGB (test code = MCH) 31.3 picogram 27.0-33.0 N MEAN CELL HGB CONCETRATION (test code = MCHC) 30.6 gram/dL 33.0-36. 0 L RED CELL DISTRIBUTION WIDTH (test code = RDW) 18.0 % 11.6-16. 2 H RED CELL DISTRIBUTION WIDTH SD (test code = RDW-SD) 62.2 fL 37 .0-51.0 H PLATELET COUNT (test code = PLT) 157 K/mm3 150-450 N MEAN PLATELET VOLUME (test code = MPV) 11.7 fL 6.7-11.0 H NEUTROPHIL % (test code = NT%) 37.7 % 39.0-69.0 L IMMATURE GRANULOCYTE % (test code = IG%) 0.4 % 0.0-5.0 N LYMPHOCYTE % (test code = LY%) 38.7 % 25.0-55.0 N MONOCYTE % (test code = MO%) 13.2 % 0.0-10.0 H EOSINOPHIL % (test code = EO%) 8.0 % 0.0-5.0 H BASOPHIL % (test code = BA%) 2.0 % 0.0-1.0 H NUCLEATED RBC % (test code = NRBC%) 0.6 % 0-0 H NEUTROPHIL # (test code = NT#) 1.89 K/mm3 1.8-7.7 N IMMATURE GRANULOCYTE # (test code = IG#) 0.02 x10 3/uL 0-0.03 N LYMPHOCYTE # (test code = LY#) 1.94 K/mm3 1.0-5.0 N MONOCYTE # (test code = MO#) 0.66 K/mm3 0-0.8 N EOSINOPHIL # (test code = EO#) 0.40 K/mm3 0.0-0.5 N BASOPHIL # (test code = BA#) 0.10 K/mm3 0.0-0.2 N NUCLEATED RBC # (test code = NRBC#) 0.03 K/mm3 0.0-0.1 N Capillary blood glucose measurement by glucometer (mass/volume)2020-04-26 19:43:00* Test Item Value Reference Range Interpretation Comments Bedside Glucose (test code = 08185-9) 174 70-120 Meter ID: [id number] [facility] CenterBlood leukocytes automated count (number/volume)2020-04-25 04:46:00* Test Item Value Reference Range Interpretation Comments White Blood Count (test code = 6690-2) 7.44 4.8-10.8 [facility] count (number/volume)2020-04-25 04:46:00* Test Item Value Reference Range Interpretation Comments Red Blood Count (test code = 789-8) 2.75 3.6-5.1 [facility] hemoglobin measurement (moles/volume)2020-04-25 04:46:00* Test Item Value Reference Range Interpretation Comments Hemoglobin (test code = 53578-5) 8.9 12.0-16.0 [facility] System[facility] blood hematocrit (volume fraction)2020-04-25 04:46:00* Test Item Value Reference Range Interpretation Comments Hematocrit (test code = 4544-3) 27.4 34.2-44.1 [facility] System[facility] erythrocyte mean corpuscular gkvghj6687-59-27 04:46:00* Test Item Value Reference Range Interpretation Comments Mean Corpuscular Volume (test code = 787-2) 99.6 81-99 [facility] SystemAutom[facility] erythrocyte mean corpuscular hemoglobin (mass per erythrocyte)2020-04-25 04:46:00* Test Item Value Reference Range Interpretation Comments Mean Corpuscular Hemoglobin (test code = 785-6) 32.4 28-32 [facility] SystemAutom[facility] erythrocyte mean corpuscular hemoglobin concentration measurement (mass/volume)2020-04-25 04:46:00* Test Item Value Reference Range Interpretation Comments Mean Corpuscular Hemoglobin Concent (test code = 786-4) 32.5 31-35 [facility] SystemRDW PvcGb-Kjq7468-25-27 04:46:00* Test Item Value Reference Range Interpretation Comments Red Cell Distribution Width (test code = 60432-5) 16.1 11.7 -14.4 [facility] SystemAutom[facility] blood platelet count (count/volume)2020-04-25 04:46:00* Test Item Value Reference Range Interpretation Comments Platelet Count (test code = 777-3) 110 140-360 [facility] SystemAutom[facility] blood segmented neutrophil count as percentage of total plzjotntpy1408-52-25 04:46:00* Test Item Value Reference Range Interpretation Comments Neutrophils (%) (Auto) (test code = 10639-2) 52.8 38.7-80.0 [facility] SystemAutom[facility] blood lymphocyte count as percentage ot total zbgfynlbej3174-14-78 04:46:00* Test Item Value Reference Range Interpretation Comments Lymphocytes (%) (Auto) (test code = 736-9) 22.6 18.0-39.1 [facility] SystemAutomated blood monocyte count as percentage of total scwbwcsfhl9561-99-68 04:46:00* Test Item Value Reference Range Interpretation Comments Monocytes (%) (Auto) (test code = 5905-5) 16.5 4.4-11.3 [facility] eosinophil count as percentage of total cpmldywqgn8815-47-63 04:46:00* Test Item Value Reference Range Interpretation Comments Eosinophils (%) (Auto) (test code = 713-8) 6.7 0.0-6.0 [facility] SystemAutom[facility] blood basophil count as percentage of total elwilboxjg8625-98-32 04:46:00* Test Item Value Reference Range Interpretation Comments Basophils (%) (Auto) (test code = 706-2) 0.7 0.0-1.0 [facility] SystemFluoroscopic procedure less than one hour scidtmgr4600-57-49 04:46:00* Test Item Value Reference Range Interpretation Comments IM GRANULOCYTES % (test code = IM GRANULOCYTES %) 0.7 0.0- 1.0 [facility] SystemAutom[facility] blood neutrophil count 2020-04-25 04:46:00* Test Item Value Reference Range Interpretation Comments Neutrophils # (Auto) (test code = 751-8) 3.9 2.1-6.9 [facility] SystemBlood lymphocytes count (number/volume) 2020-04-25 04:46:00* Test Item Value Reference Range Interpretation Comments Lymphocytes # (Auto) (test code = 65635-8) 1.7 1.0-3.2 [facility] SystemBlood monocytes automated count (number/volume)2020-04-25 04:46:00* Test Item Value Reference Range Interpretation Comments Monocytes # (Auto) (test code = 742-7) 1.2 0.2-0.8 [facility] SystemAutom[facility] blood eosinophil count 2020-04-25 04:46:00* Test Item Value Reference Range Interpretation Comments Eosinophils # (Auto) (test code = 711-2) 0.5 0.0-0.4 [facility] SystemAutomated blood basophil count (count/volume)2020-04-25 04:46:00* Test Item Value Reference Range Interpretation Comments Basophils # (Auto) (test code = 704-7) 0.1 0.0-0.1 [facility] SystemFluoroscopic procedure less than one hour heaxbuho1726-58-97 04:46:00* Test Item Value Reference Range Interpretation Comments Absolute Immature Granulocyte (auto (ashley t code = Absolute Immature Granulocyte (auto) 0.05 0-0.1 [facility] sodium measurement (moles/volume)2020-04-25 04:46:00* Test Item Value Reference Range Interpretation Comments Sodium Level (test code = 2951-2) 132 136-145 [facility] potassium measurement (moles/volume)2020-04-25 04:46:00* Test Item Value Reference Range Interpretation Comments Potassium Level (test code = 2823-3) 3.8 3.5-5.1 [facility] chloride measurement (moles/volume)2020-04-25 04:46:00* Test Item Value Reference Range Interpretation Comments Chloride Level (test code = 2075-0) 98 98-107 [facility] carbon dioxide, total measurement (moles/volume)2020-04-25 04:46:00* Test Item Value Reference Range Interpretation Comments Carbon Dioxide Level (test code = 2028-9) 25 22-29 [facility] plasma anion sik2554-99-89 04:46:00* Test Item Value Reference Range Interpretation Comments Anion Gap (test code = 37250-9) 12.8 8-16 [facility] urea nitrogen measurement (mass/volume)2020-04-25 04:46:00* Test Item Value Reference Range Interpretation Comments Blood Urea Nitrogen (test code = 3094-0) 20 7-26 [facility] plasma creatinine measurement (mass/volume)2020-04-25 04:46:00* Test Item Value Reference Range Interpretation Comments Creatinine (test code = 2160-0) 4.35 0.57-1.11 [facility] plasma urea nitrogen/creatinine mass bwxnb1894-02-34 04:46:00* Test Item Value Reference Range Interpretation Comments BUN/Creatinine Ratio (test code = 3097-3) 5 6-25 [facility] SystemEstimated glomerular filtration rate (GFR) swlmcxohwuugw1822-27-34 04:46:00* Test Item Value Reference Range Interpretation Comments Estimat Glomerular Filtration Rate (test code = 873461551) 10 >60 Ranges were taken from the National Kidney Disease Education Program and the So [facility] Kidney Foundation literature.Reference ranges:60 or greater: Yslhqs87-41 ( for 3 consecutive months): Chronic kidney disease 15 or less: Kidney failureUnited Regional Healthcare SystemGlucose fpzleuawteu2101-94-39 04:46:00* Test Item Value Reference Range Interpretation Comments Glucose Level (test code = RMK8774) 103 74-118 [facility] plasma calcium measurement (mass/volume)2020-04-25 04:46:00* Test Item Value Reference Range Interpretation Comments Calcium Level (test code = 42497-8) 7.4 8.4-10.2 [facility] plasma total bilirubin measurement (mass/volume)2020-04-24 12:45:00* Test Item Value Reference Range Interpretation Comments Total Bilirubin (test code = 1975-2) 0.4 0.2-1.2 [facility] SystemFluoroscopic procedure less than one hour slogorho3255-10-79 12:45:00* Test Item Value Reference Range Interpretation Comments Aspartate Amino Transf (AST/SGOT) (test code = Aspartate Amino Transf (AST/SGOT)) 17 5-34 [facility] or plasma alanine aminotransferase measurement (enzymatic activity/volume)2020-04-24 12:45:00* Test Item Value Reference Range Interpretation Comments Alanine Aminotransferase (ALT/SGPT) (test code = 1742-6) < 6 0-55 [facility] or plasma protein measurement (mass/volume)2020-04-24 12:45:00* Test Item Value Reference Range Interpretation Comments Total Protein (test code = 2885-2) 6.5 6.5-8.1 [facility] plasma albumin measurement (mass/volume)2020-04-24 12:45:00* Test Item Value Reference Range Interpretation Comments Albumin (test code = 1751-7) 2.2 3.5-5.0 [facility] SystemPlasma globulin measurement (mass/volume) 2020-04-24 12:45:00* Test Item Value Reference Range Interpretation Comments Globulin (test code = 02413-3) 4.3 2.3-3.5 [facility] or plasma albumin/globulin mass ekbfx0269-40-85 12:45:00* Test Item Value Reference Range Interpretation Comments Albumin/Globulin Ratio (test code = 1759-0) 0.5 0.8-2.0 [facility] plasma alkaline phosphatase measurement (enzymatic activity/volume)2020-04-24 12:45:00* Test Item Value Reference Range Interpretation Comments Alkaline Phosphatase (test code = 6768-6) 96 40-150 [facility] SystemPLEURAL [id number] 15:32:00 RUN DATE: 04/23/20 [facility] PAGE 1 RUN TIME: 1532 Specimen Inqui ry RUN USER: INTERFACE PATIENT: LACEY GONZALEZ ACCT #: V [id number] LOC: STEPHANIE U #: [id number] AGE/SX: 59/F ROOM: 2070 RE04/10/20REG DR: Cuco Wells MD : 56 BED: A DIS: 04/15/20 STATUS: DIS IN TLOC: SPEC #: [id number] RECD: 04/15/20 STATUS: VANNESA ALICIAGiles #: [id number] NORA: 04/15/20- [facility] DR: Cuco Wells MD ENTERED: 04/15/20 SP TYPE: PLEURAL FL OTHR DR: Mariah Amisha kaylyn or Family Physician Tate Wilson MD, Gerardo MD Koka, Vijay Kishore MD Lai Zayas, Angeles MDORDERED: GROSS COPIES TO: Mariah Primary or Family Physician Tate Wilson MD [address] [place] [address] K Demian yepez MD [address] [place] [address] Eliezer Chairez MD [address] [facility] [address] [place] [address] [phone] To Ling MD [address] [place] [address] Cuco Wells MD [address] [place] [address] [phone] PROCEDURES: GROSS (04/23/20-0959) TISSUES: PLEURAL FLUID, NOS - 10 ML THICK RED CONTINUED ON NEXT PAGE RUN DATE: 04/23/20 [facility] PAGE 2 RUN TIME: 1532 Specimen Inqui ry RUN USER: INTERFACE SPEC #: [id number] PATIENT: REGINO GONZALEZ #[id number] (Continued) CLINICAL HISTO RY COLLECTION DATE: 04/15/20 PLEURAL EFFUSION, CHF COMMENT Immunostains were prepared at [facility] and interpreted at [facility]. The controls stain appropriately. The atypical cell are positiv e for Calretinin and D2-40 and negative for SLAVA EP4 and MOC 31. There is some faint staining with SLAVA EP4, mostly within macrophages, and the stain is consid ered to be negative. The findings are consistent with the presence of reactive mesothelial cells. Clinical correlation is recommended. Intradepartmen scott consultation: RRB. FINAL DIAGNOSIS Right pleural fluid for cytolo gy, thoracentesis: REACTIVE MESOTHELIAL CELLS AND WHITE BLOOD CELLS NEGATIVE FOR MALIGNANCY (SEE COMMENT) DMW/ D 67458, 40646, 57542, [id number] MACROSCOPIC The specimen is designated as "right ple ural fluid". It consists of 10 mL of thick red fluid for concentration and ev aluation. A cell block is prepared. GROSS PERFORMED AT [facility] [address] [place] [address] [phone] MICROSCOPIC All of the stains , including any controls performed, stain appropriately. MICROSCOPIC PER FORMED AT [facility] [address] [place] [address] CONTINUED ON NEXT PAGE RUN DATE: 04/23/20 [facility] PAGE 3 RUN TIME: 1532 Specim en Inquiry RUN USER: INTERFACE SPEC #: [id number] PATIENT: ERYN PIERRELACEY BYRD #[id number] (Continued) TEGAN Mcdowell) ([phone] PERFORMING SITE Emelina gnosis performed at: [facility] [address] [place] [address] Signed SIGNATURE ON FILE Sheila Lamb MD 04/23/20 1532 END OF REPORT TUNNELLED CVC INSERT W/O [id number] 10:44:00 [place] [address] Patient Name: LACEY GONZALEZ MR #: [id number] : 1960 Age/Sex: 59/F Req #: [id number] [facility] Physician: CUCO WELLS MD Ordered by: IDRIS BRADLEY, CK BRADLEY Report #: [id number] Location: MED/SURG Room/Bed: [facility] Procedure: [id number] IR/LETY ED CVC INSERT W/O PORT Exam Date: Exam Time: REPORT STATUS: Signed Conversion of a nontunneled to tunneled dialysis catheter. History: Renal failure. Modality: Fluoroscopy. Sedation: Versed 1.5 mg and fentanyl 75 mcg was given intravenously for conscious sedation. Vital signs were monitored throughout the procedure by a nurse, and remained s table. Physician intra-service time was 20 minutes. Prim john Clinical Safety Manager: MD Srinivasan. New Accounts Clerk: None. Approach: Right internal jugular vein Estimated blood loss: < 5 cc. Specimen: None. Fluoroscopy Time: 10.6 min. Dose (Ka,r): 1.0 mGy. Technique: Informed written consent was obtained. Discussion of risks, benefits, and alternatives were made with the patient. The patient expressed understanding and agreed to proceed. All elements maximal sterile barrier technique was utilized for this procedure, including utilization of sterile scrub solution for skin prep, a large sterile sheet to cover the areas of the patient that were not prepped, and hand hygiene, mask, head covering, and sterile gown for performing radiologist and scrub technologist. The skin was anesthetized with 2% lidocaine. A 0.35 inch diameter guidewire was inserted through the existing nontunneled dialysis catheter into the IVC. A subcutaneous tunnel was created in the right anterior chest wall by blunt dissection. A 19 cm tip to cuff right Latvian Duraflow 2 catheter was brought through the tunnel. The existing nontunneled hemodialysis catheter was then removed over the guidewire. A peel-away sheath was placed in the right IJ vein and the catheter was advanced through the sheath, with its distal tip terminating in the right atrium. The peel-away sheath was removed. The ports were flushed and asp irated easily following placement. The lumens were locked with heparin. The c atheter was sutured to the skin to secure its placement. The small jugular in cision site was closed using resorbable suture. A resorbable pursestring sutur e was placed at the catheter exit site. Vital signs were monitored throughout the procedure by a nurse, and remained stable. The patient tolerated the proc edure well and left the department in the same condition. Result s: Spot radiograph of the chest demonstrates the new dialysis catheter to lie in the expected position with its tip overlying the superior right atrium. Impression: Successful, unc omplicated conversion of a nontunneled right internal jugular to a tunneled di alysis catheter. Signed by: Dr. Jerome Mattson MD on 04/22/2020 10:46 AM Dictated By: JEROME MATTSON MD 45 COPY TO: ASHLEY STEINBERG IR [id number] 10:44:00 [place] [address] Patient Name: LACEY GONZALEZ MR #: [id number] : 1960 Age/Sex: 59/F Req #: [id number] Adm Physician: CUCO WELLS MD Ordered by: IDRIS BRADLEY, CK BRADLEY Report #: [id number] Location: MED/SURG Room/Bed: [facility] Procedure: [id number] DX/IR CONS ULT Exam Date: Exam Time: REPORT STATUS: Signed Conversion of a nontunneled to otis neled dialysis catheter. History: Renal failure. Modality: Fluoro scopy. Sedation: Versed 1.5 mg and fentan yl 75 mcg was given intravenously for conscious sedation. Vital signs were mo nitored throughout the procedure by a nurse, and remained stable. Physician in tra-service time was 20 minutes. Form Drafter: Tony nino MD. New Accounts Clerk: None. Approach: Right internal jugular vein Estimated blood loss: < 5 cc. Specimen: None. Fluoroscopy Time: 10.6 min. Dose (Ka,r): 1.0 mGy. Technique: Informed written consent was obtained. Discussion of risks, benefits, and alternatives were made with the patient. The patient expressed understanding and agreed to proceed. All elements maximal sterile barrier technique was utilized for this procedure, including utilization of sterile scrub solution for skin prep, a large sterile sheet to cover the areas of the patient that were not prepped, and hand hygiene, mask, head covering, and sterile gown for performing radiologist and scrub technologist. The skin was anesthetized with 2% lidocaine. A 0.35 inch diameter guidewire was inserted through the existing nontunneled dialysis catheter into the IVC. A subcutaneous tunnel was created in the right anterior chest wall by blunt dissection. A 19 cm tip to cuff right Latvian Duraflow 2 catheter was brought through the tunnel. The existing nontunneled hemodialysis catheter was then removed over the guidewire. A peel-away sheath was placed in the right IJ vein and the catheter was advanced through the sheath, with its distal tip terminating in the right atrium. The peel-away sheath was removed. The ports were flushed and aspirated easily following placement. The lumens were locked with heparin. The catheter was sutured to the skin to secure its placement. The small jugular incision site was closed using resorbable suture. A resorbable pursestring suture was placed at the catheter exit site. Vital signs were monitored throughout the procedure by a nurse, and remained stable. The patient tolerated the procedure well and left the department in the same condition. Results: Spot radiograph of the chest demonstrates the new dialysis catheter to lie in the expected position with its tip overlying the superior right atrium. Impression: Successful, uncomplicated conversion of a nontunneled right internal jugular to a tunneled dialysis catheter. Signed by: Dr. Jerome Mattson MD on 04/22/2020 10:46 AM Dictated By: JEROME MATTSON MD 45 COPY TO: ASHLEY STEINBERG Serum hepatitis B virus surface antibody assay by radioimmunoassay (units/volume)2020-04-20 14:00:00* Test Item Value Reference Range Interpretation Comments Hepatitis B Surface Antibody, Quant (test code = 5194-6) <3.1 Immunity>9.9 Status of Immunity Anti-HBs Level Inconsistent with Immunity 0.0 - 9.9Consistent with Immunity >9.9[facility] hepatitis B virus core antibody detection by [id number] 14:00:00* Test Item Value Reference Range Interpretation Comments Hepatitis B Core Total Antibody (test code = 33983-3) Negative Negative Performed at: [facility] - [facility] [address] [id number] Director: Dominik Chand MD, Phone: [phone] Grande Regional Hospitalerum or plasma hepatitis B virus surface antigen detection by immunoassay 2020-04-20 14:00:00* Test Item Value Reference Range Interpretation Comments Hepatitis B Surface Antigen (test code = 5196-1) Negative Negat rachael [facility] [id number] 13:52:00 [place] [address] Patient Name: LACEY GONZALEZ MR #: [id number] : 1960 Age/Sex: 59/F Req #: [id number] Adm Physician: CUCO WELLS MD Ordered by: IDRIS BRADLEY, CK BRADLEY Report #: [id number] Location: MED/SURG Room/Bed: [facility] Procedure: [id number] US/US SYD BOWDEN FOR VASCULAR ACCES Exam Date: 04/20/20 Exam Yuriy e: 1127 REPORT STATUS: Signed Pr ocedure: Nontunneled temporary dialysis catheter placement. History: Need for hemodialysis. Form Drafter: Gigi Ro MD. New Accounts Clerk: None Modality: Sonography and fluoroscopy. DOSE REDUCTION: The exam ination was performed according to departmental dose-optimization program whic h includes automated exposure control, adjustment of the mA and/or kV accordin g to patient size and/or use of iterative reconstruction technique. Fluo ro time: 0.4 minutes. Radiation dose for this procedure was 4.98 mGy air Ke rma. Number of images: 1 Sedation: No IV sedation was given. Anes thesia: Lidocaine local infiltration. Physician intra-service sedation yuriy e was not applicable. Estimated blood loss: < 5 cc. Technique: Informed written consent was obtained. Discussion of risks, benefits, and alternatives were made with the patient. The patient expressed understanding and agreed to proceed. A universal timeout was performed prior to starting the procedure. The procedure room personnel used personal protective equipment. The operators used sterile gowns and gloves additi onally. A preliminary ultrasonogram was performed of the neck that revealed a patent and compressible right internal jugular vein. Pertinent ultrasound i mages were stored in the PACS for documentation. A sterile prep and drape of the neck and upper chest was performed using standard technique. Using aseptic precautions, real-time ultrasound guidance, the internal jugular vein was accessed after local anesthetic infiltration and dermatotomy with a micr opuncture needle. A 018 guidewire was advanced into the central venous system under fluoroscopic guidance. Over the wire a micropuncture sheath was placed. Through the micropuncture sheath, a 035 wire was advanced into the venous sys tem under fluoroscopic guidance. Over the wire following sequential dilatation of the tract, a nontunneled temporary dialysis catheter was placed. The brigid ter ports aspirated and flushed well and were terminally packed with heparin. The catheter was secured to skin with nonabsorbable suture. An aseptic bev ssing was applied. The patient was transferred to the recovery area and w as discharged from the department in stable condition. Complications: None immediate. Device: 14 Latvian x15 cm triple-lumen nontunneled dialysis catheter . Findings: Patent and compressible right int ernal jugular vein. Final image shows the catheter to be in good position with the catheter tip at the cavoatrial junction and an excellent position for use. There is no complication. Impression: Successful ultrasound and fluoroscopic guided right internal jugular vein route nontunneled triple lumen temporary dialysis cat heter placement as described above. Thank you for the opportunity to assi st in the care of your patient. Signed by: Gigi Ro MD on 0 1:52 PM Dictated By: GIGI RO MD 51 Transcribed By: ROSSI on 04/20/201351 COPY TO: CK STEINBERG NON-TUNNELLED CVC CATH [id number] 13:50:00 [place] [address] Patient Name: LACEY GONZALEZ MR #: [id number] : 1960 Age/Sex: 59/F Req #: [id number] Adm Physician: CUCO WELLS MD Ordered by: IDRIS BRADLEY, CK BRADLEY Report #: [id number] Location: MED/SURG Ro om/Bed: [facility] Procedure: [id number] IR/NON-OTIS NELLED CVC CATH PLACMNT Exam Date: 04/20/20 Exam Yuriy e: 1150 REPORT STATUS: Signed Pr ocedure: Nontunneled temporary dialysis catheter placement. History: Need for hemodialysis. Form Drafter: Gigi Ro MD. New Accounts Clerk: None Modality: Sonography and fluoroscopy. DOSE REDUCTION: The exam ination was performed according to departmental dose-optimization program [facility] h includes automated exposure control, adjustment of the mA and/or kV accordin g to patient size and/or use of iterative reconstruction technique. Fluo ro time: 0.4 minutes. Radiation dose for this procedure was 4.98 mGy air Ke rma. Number of images: 1 Sedation: No IV sedation was given. Anes thesia: Lidocaine local infiltration. Physician intra-service sedation yuriy e was not applicable. Estimated blood loss: < 5 cc. Technique: Informed written consent was obtained. Discussion of risks, benefits, and alternatives were made with the patient. The patient expressed understanding and agreed to proceed. A universal timeout was performed prior to starting the procedure. The procedure room personnel used personal protective equipment. The operators used sterile gowns and gloves additi onally. A preliminary ultrasonogram was performed of the neck that revealed a patent and compressible right internal jugular vein. Pertinent ultrasound i mages were stored in the PACS for documentation. A sterile prep and drape of the neck and upper chest was performed using standard technique. Using aseptic precautions, real-time ultrasound guidance, the internal jugular vein was accessed after local anesthetic infiltration and dermatotomy with a micr opuncture needle. A 018 guidewire was advanced into the central venous system under fluoroscopic guidance. Over the wire a micropuncture sheath was placed. Through the micropuncture sheath, a 035 wire was advanced into the venous sys tem under fluoroscopic guidance. Over the wire following sequential dilatation of the tract, a nontunneled temporary dialysis catheter was placed. The brigid ter ports aspirated and flushed well and were terminally packed with heparin. The catheter was secured to skin with nonabsorbable suture. An aseptic bev ssing was applied. The patient was transferred to the recovery area and w as discharged from the department in stable condition. Complications: None immediate. Device: 14 Latvian x15 cm triple-lumen nontunneled dialysis catheter . Findings: Patent and compressible right int ernal jugular vein. Final image shows the catheter to be in good position with the catheter tip at the cavoatrial junction and an excellent position for use. There is no complication. Impression: Successful ultrasound and fluoroscopic guided right internal jugular vein route nontunneled triple lumen temporary dialysis cat heter placement as described above. Thank you for the opportunity to assi st in the care of your patient. Signed by: Gigi Ro MD on 0 1:51 PM Dictated By: GIGI RO MD 1351 Transcribed By: ROSSI on 04/20/20 1351 COPY TO: CK STEINBERG Phosphorus [id number] 04:40:00* Test Item Value Reference Range Interpretation Comments Phosphorus Level (test code = EGS0861) 6.1 2.3-4.7 [facility] or plasma magnesium measurement (mass/volume)2020-04-19 04:40:00* Test Item Value Reference Range Interpretation Comments Magnesium Level (test code = 17855-9) 1.7 1.3-2.1 [facility] SystemFlu[facility] procedure less than one hour [id number] 19:13:00* Test Item Value Reference Range Interpretation Comments Coronavirus (PCR) (test code = Coronavirus (PCR)) NOT DETECTED NOTD ETECTED SARS-COV-2 (COVID19), HIGHRISK, RT-PCRNegative results do not preclude SARS-CoV- 2 infection and should not be used as the sole basis for patient management deci sions. Negative results must be combined with clinical observations, patient his tory, and epidemiological information. Optimum specimen types and timing for pea k viral levels during infections caused by SARS-CoV-2 have not been determined. Collection of multiple specimens ot types of specimens may be necessary to detec t virus. Improper specimen collection and handling, sequence variability under p rimers/probes, or organism present below the limit of detection may lead to fals e negative results. Positive and negative predictive values of testing are highl y dependent on prevalance. False negative test results are more likely when prev alence is high.The expected result is negative (not detected).The SARS-CoV-2 ashley t is intended for the qualitative detection of nucleic acid from SARS-CoV-2 in n asopharyngeal and oropharyngeal swab samples from patients who meet COVID-19 cli nical and or epidemiological criteria. For lower respiratory tract specimens, th e assay is submitted for authoriztion by FDA under an Emergency Use Authorizatio n (EUA). Testing methodology is real time RT-PCR. If received as separate collec tion devices, nasopharygeal and oropharyngeal specimens are combined for analysi s. Additional specimens may be split to a separate accession for analysi and rep orting as this test includes a single unit of service.Test results must be corre lated with clinical presentation and evaluated in the context of other laborator y and epidemiologic data. Test performance can be affected because the epidemiol ogy and clinical spectrum of infection caused by SARS-CoV-2 is not fully known. For example, the optimum types of specimens to collect and when during the cours e of infection these specimens are most likely to contain detectable viral RNA m ay not be known.This test has not been Food and Drug Administration (FDA) cleare d or approved and has been authorized by FDA under an Emergency Use Authorizatio n (EUA). The test is only authorized for the duration of the declaration that ci rcumstances exist justifying the authorization of emergency use of in vitro diag nostic tests for detection and/or diagnosis of SARS-CoV-2 under section 564(b) o f the Act, 21 U.S.C. section 360bbb-3(b)(1), unless the authorization is termina rikki or revoked sooner. [facility] are certified under the C linical Laboratory Improvement Amendments of 1988 (CLIA), 42 U.S.C. section 263a , to perform high complexity tests.Testing performed by [facility] [id number] [place] [address] [phone] Director: Chencho Larson M.D.CLIA # [id number]CT ABDOMEN/PELVIS [id number] 18:09:00 [place] [address] Patient Name: LACEY GONZALEZ MR #: [id number] : 1960 Age/Sex: 59/F Req #: [id number] Adm Physician: Ordered by: LAUREI MOORE DO Report #: [id number] Location: ER Room/Bed: Procedure: [id number] CT/CT AB DOMEN/PELVIS W Exam Date: 04/17/20 Exam Time: 1730 REPORT STATUS: Signed EXAMINATION: CT of the abdomen and pelvis with contrast. TECHNIQUE: Spiral CT images of the abdomen and pelvis were performed from the lung bases to the lesser t rochanters after the intravenous administration of 100 cc of Isovue 370 and th e oral administration of water. Coronal and sagittal reformatted images were obtained. COMPARISON: None. CLINICAL HISTORY:Abdominal pain, feeling weak, peritoneal dialysis today DISCUSSION: ABDOMEN/PELVIS: LINES AND TUBES: Radiopaque catheter enters the peritoneal cavity anteriorly b elow the umbilicus and is coiled in the anterior aspect of the pelvis (series 2, image 73). LOWER THORAX:Small right pleural effusion and associated comp ressive atelectasis of the right lower lobe. Atherosclerotic calcification of the aortic valve and coronary arteries. HEPATOBILIARY: Nodular hepatic co ntour with atrophy of the right hepatic lobe and prominence of the caudate and left lobes, consistent with cirrhosis. No enhancing lesions. No intra or extr ahepatic biliary ductal dilation. GALLBLADDER: Cholecystectomy clips. SPLEEN: No splenomegaly. PANCREAS: No focal masses or ductal dilatatio n. ADRENALS: No adrenal nodules. KIDNEYS/URETERS: Bilateral renal cor tical thinning. No hydronephrosis, hydroureter or evidence of obstruction. No stones. No solid enhancing masses. PELVIC ORGANS/BLADDER: Bladder is decomp ressed but grossly unremarkable. Uterus unremarkable. No adnexal masses. PERITONEUM/RETROPERITONEUM: Moderate amount of fluid in the peritoneal cavity and pelvis. Multiple air foci in the nondependent portion of the peritoneal ca vity, consistent with pneumoperitoneum (for example series 2, image 30, 32, 45 ). No peritoneal thickening or abnormal enhancement is noted. LYMPH NODES: No intra-abdominal, retroperitoneal, pelvic or inguinal lymphadenopathy. VESSELS: The celiac trunk,superior and inferior mesenteric and bilateral renal arteries are patent The portal, superior mesenteric and splenic veins are p atent. Atherosclerotic calcification of the abdominal aorta and iliac vessels. GI TRACT: No bowel dilation or evidence of obstruction. There is prominent wall enhancement of the distal ileum adjacent to the peritoneal catheter, with a few loops showing mild wall thickening (example series 2, image 71). A few air foci are noted in the mesentery adjacent to these bowel loops (for example series 2, image 15) Rest of the bowel shows normal enhancement. Appendix is identified and normal in caliber. BONES AND SOFT TISSUE: No aggressive lytic lesions. Multilevel degenerative disks in the lower thoracic and lumb osacral spine , worse at L4-L5 and L5-S1. No aggressive lytic or focal suspici ous sclerotic lesions. Mild generalized soft tissue edema. IMPRESSION: 1. Prominent wall enhancement of the distal ileum adjacent to peritoneal cath eter with few loops showing mild wall thickening. Findings are suspicious for enteritis, which may be infectious or inflammatory. There is no bowel dilation or obstruction. 2. A few air foci are noted in the mesentery adjacent to abno rmal loops of bowel, with multiple air foci in the nondependent portion of the peritoneal cavity consistent with pneumoperitoneum, greater than expected for peritoneal dialysis. Findings are concerning for bowel perforation. 3. Mode rate amount of fluid in the peritoneal cavity and pelvis, which is likely seco ndary to peritoneal dialysis. 4. No peritoneal thickening or abnormal enhancem ent to suggest spontaneous bacterial peritonitis. 5. Cirrhotic liver. No farhat picious enhancing lesions. 6. Small right pleural effusion and associated comp ressive atelectasis of the right lower lobe. 7. Findings discussed with Dr. Moore April 17, 2020 at 1828 hours Signed by: Dr. Tato Conti M.D. on 04/17/2020 6:29 PM Dictated By: TATO CONTI MD Electronically Adenike d By: TATO CONTI MD on 04/17/20 1829 Transcribed By: ROSSI on 04/17/20 18 29 COPY TO: LAURIE MOORE DO Prothrombin time (PT) in platelet poor plasma by coagulation [id number] 16:02:00* Test Item Value Reference Range Interpretation Comments Prothrombin Time (test code = 5902-2) 15.4 11.9-14.5 [facility] in Platelet poor plasma by Coagulation [id number] 16:02:00* Test Item Value Reference Range Interpretation Comments Prothromb Time International Ratio (test code = 6301-6) 1.15 Oral Anticoagulant Therapy INR Values:1. Low Intensity Therapy 1.5 - 2.02 . Moderate Intensity Therapy 2.0 - 3.03. High Intensity Therapy(1) 2.5 - 3. 54. High Intensity Therapy(2) 3.0 - 4.05. Panic Value INR > 5.0 [facility] plasma creatine kinase measurement (enzymatic activity/volume)2020-04-17 16:02:00* Test Item Value Reference Range Interpretation Comments Creatine Kinase (test code = 2157-6) 58 29-168 [facility] or plasma creatine kinase MB measurement (mass/volume)2020-04-17 16:02:00* Test Item Value Reference Range Interpretation Comments Creatine Kinase MB (test code = 61834-1) 1.10 0-5.0 [facility] SystemTroponin I measurement by highly sensitive enzyme tnvzcyjtcrs5641-79-42 16:02:00* Test Item Value Reference Range Interpretation Comments Troponin I (test code = 24897-4) 0.100 0-0.300 [facility] or plasma lipase measurement (enzymatic activity/volume)2020-04-17 16:02:00* Test Item Value Reference Range Interpretation Comments Lipase (test code = 3040-3) 77 8-78 [facility] SystemB[facility] FLUID CELL CT/[id number] 21:51:00* Test Item Value Reference Range Interpretation Comments FLUID SOURCE (test code = SOURCEFL) PLEURAL FLD FLUID COLOR (test code = COLFL) YELLOW COLORLESS FLUID APPEARANCE (test code = APPFL) HAZY FLUID WBC (test code = WBCFL) per mm3 0-150 NO CELL COUNT PERFORMED SPECIMEN WAS CLOTTED V.LAB.JQ04/15/20 1211Previously reported result: per ye1Gdxycz by: V.LAB.JQ on 04/15/20:1235 04/15/20 1235: FLD WBC previously reported as: per mm3 04/15/20 1211 FLUID RBC (test code = RBCFL) per mm3 0-50 NO CELL COUNT PERFORMED SPECIMEN WAS CLOTTED V.LAB.JQ04/15/20 1212Previously reported result: per bn6Kuwrqe by: V.LAB.JQ on 04/15/20:697754 1235: FLD RBC previously reported as: per mm3 04/15/20 1212 FLUID POLY (test code = POLYFL) 56.0 % FLUID LYMPHOCYTE (test code = LYMPHFL) 26.0 % FLUID MACROPHAGE (test code = MACFL) 18.0 % TOTAL CELLS COUNTED ON DIFF (test code = TOTCELLFL) 100 cells REVIEWED BY (test code = REVIEW) PATHOLOGIST ReviewedCellular-some allergies- nomilly reative.cytology -8853-95 REVIEWED BY SHEILA GONZALES M.D.04/16/20 FLUID [id number] 21:51:00* Test Item Value Reference Range Interpretation Comments FLUID PH (test code = PHFL) 7.0 6.8-7.6 N FLUID [id number] 21:51:00* Test Item Value Reference Range Interpretation Comments FLUID GLUCOSE (test code = GLUFL) 216 mg/dL FLUID [id number] 21:51:00* Test Item Value Reference Range Interpretation Comments FLUID PROTEIN (test code = PROTFL) 3.3 gram/dL FLUID [id number] 21:51:00* Test Item Value Reference Range Interpretation Comments FLUID LDH (test code = LDHFL) 115 IUnit/L [id number] 17:28:00* Test Item Value Reference Range Interpretation Comments GLUBED (test code = GLUBED) 221 mg/dL 74-106 H Performed by certified trimming press operator at [facility] BODY FLUID CELL CT/[id number] 12:35:00* Test Item Value Reference Range Interpretation Comments FLUID SOURCE (test code = SOURCEFL) PLEURAL FLD FLUID COLOR (test code = COLFL) YELLOW COLORLESS FLUID APPEARANCE (test code = APPFL) HAZY FLUID WBC (test code = WBCFL) per mm3 0-150 NO CELL COUNT PERFORMED SPECIMEN WAS CLOTTED V.LAB.JQ04/15/20 1211Previously reported result: per lk3Oqrelc by: V.LAB.JQ on 04/15/20:1235 04/15/20 1235: FLD WBC previously reported as: per mm3 04/15/20 1211 FLUID RBC (test code = RBCFL) per mm3 0-50 NO CELL COUNT PERFORMED SPECIMEN WAS CLOTTED V.LAB.JQ04/15/20 1212Previously reported result: per gc5Asafyr by: V.LAB.JQ on 04/15/20:526536 1235: FLD RBC previously reported as: per mm3 04/15/20 1212 FLUID POLY (test code = POLYFL) 56.0 % FLUID LYMPHOCYTE (test code = LYMPHFL) 26.0 % FLUID MACROPHAGE (test code = MACFL) 18.0 % TOTAL CELLS COUNTED ON DIFF (test code = TOTCELLFL) 100 cells REVIEWED BY (test code = REVIEW) PATHOLOGIST FLUID [id number] 12:35:00* Test Item Value Reference Range Interpretation Comments FLUID PH (test code = PHFL) 7.0 6.8-7.6 N FLUID [id number] 12:35:00* Test Item Value Reference Range Interpretation Comments FLUID GLUCOSE (test code = GLUFL) 216 mg/dL FLUID [id number] 12:35:00* Test Item Value Reference Range Interpretation Comments FLUID PROTEIN (test code = PROTFL) 3.3 gram/dL FLUID [id number] 12:35:00* Test Item Value Reference Range Interpretation Comments FLUID LDH (test code = LDHFL) 115 IUnit/L BODY FLUID CELL CT/[id number] 12:33:00* Test Item Value Reference Range Interpretation Comments FLUID SOURCE (test code = SOURCEFL) PLEURAL FLD FLUID COLOR (test code = COLFL) YELLOW COLORLESS FLUID APPEARANCE (test code = APPFL) HAZY FLUID WBC (test code = WBCFL) per mm3 0-150 04/15/20 1211 FLUID RBC (test code = RBCFL) per mm3 0-50 04/15/20 1212 FLUID POLY (test code = POLYFL) 56.0 % FLUID LYMPHOCYTE (test code = LYMPHFL) 26.0 % FLUID MACROPHAGE (test code = MACFL) 18.0 % TOTAL CELLS COUNTED ON DIFF (test code = TOTCELLFL) 100 cells REVIEWED BY (test code = REVIEW) PATHOLOGIST FLUID [id number] 12:33:00* Test Item Value Reference Range Interpretation Comments FLUID PH (test code = PHFL) 7.0 6.8-7.6 N FLUID [id number] 12:33:00* Test Item Value Reference Range Interpretation Comments FLUID GLUCOSE (test code = GLUFL) 216 mg/dL FLUID [id number] 12:33:00* Test Item Value Reference Range Interpretation Comments FLUID PROTEIN (test code = PROTFL) 3.3 gram/dL FLUID [id number] 12:33:00* Test Item Value Reference Range Interpretation Comments FLUID LDH (test code = LDHFL) 115 IUnit/L BODY FLUID CELL [id number] 12:13:00* Test Item Value Reference Range Interpretation Comments FLUID SOURCE (test code = SOURCEFL) PLEURAL FLD FLUID COLOR (test code = COLFL) YELLOW COLORLESS FLUID APPEARANCE (test code = APPFL) HAZY FLUID WBC (test code = WBCFL) per mm3 0-150 04/15/20 1211 FLUID RBC (test code = RBCFL) per mm3 0-50 04/15/20 1212 FLUID POLY (test code = POLYFL) 56.0 % FLUID LYMPHOCYTE (test code = LYMPHFL) 26.0 % FLUID MACROPHAGE (test code = MACFL) 18.0 % TOTAL CELLS COUNTED ON DIFF (test code = TOTCELLFL) cells REVIEWED BY (test code = REVIEW) PATHOLOGIST FLUID [id number] 12:13:00* Test Item Value Reference Range Interpretation Comments FLUID PH (test code = PHFL) 7.0 6.8-7.6 N FLUID [id number] 12:13:00* Test Item Value Reference Range Interpretation Comments FLUID GLUCOSE (test code = GLUFL) 216 mg/dL FLUID [id number] 12:13:00* Test Item Value Reference Range Interpretation Comments FLUID PROTEIN (test code = PROTFL) 3.3 gram/dL FLUID [id number] 12:13:00* Test Item Value Reference Range Interpretation Comments FLUID LDH (test code = LDHFL) 115 IUnit/L BODY FLUID CELL [id number] 12:12:00* Test Item Value Reference Range Interpretation Comments FLUID SOURCE (test code = SOURCEFL) PLEURAL FLD FLUID COLOR (test code = COLFL) YELLOW COLORLESS FLUID APPEARANCE (test code = APPFL) HAZY FLUID WBC (test code = WBCFL) per mm3 0-150 04/15/20 1211 FLUID RBC (test code = RBCFL) per mm3 0-50 04/15/20 1212 FLUID TOTAL CELLS (test code = TCFL) cells/uL >0 TOTAL CELLS COUNTED ON DIFF (test code = TOTCELLFL) cells REVIEWED BY (test code = REVIEW) PATHOLOGIST FLUID [id number] 12:12:00* Test Item Value Reference Range Interpretation Comments FLUID PH (test code = PHFL) 6.8-7.6 FLUID [id number] 12:12:00* Test Item Value Reference Range Interpretation Comments FLUID GLUCOSE (test code = GLUFL) 216 mg/dL FLUID [id number] 12:12:00* Test Item Value Reference Range Interpretation Comments FLUID PROTEIN (test code = PROTFL) 3.3 gram/dL FLUID [id number] 12:12:00* Test Item Value Reference Range Interpretation Comments FLUID LDH (test code = LDHFL) 115 IUnit/L BODY FLUID CELL [id number] 12:11:00* Test Item Value Reference Range Interpretation Comments FLUID SOURCE (test code = SOURCEFL) PLEURAL FLD FLUID COLOR (test code = COLFL) YELLOW COLORLESS FLUID APPEARANCE (test code = APPFL) HAZY FLUID WBC (test code = WBCFL) per mm3 0-150 04/15/20 1211 FLUID RBC (test code = RBCFL) per mm3 0-50 FLUID TOTAL CELLS (test code = TCFL) cells/uL >0 TOTAL CELLS COUNTED ON DIFF (test code = TOTCELLFL) cells REVIEWED BY (test code = REVIEW) PATHOLOGIST FLUID [id number] 12:11:00* Test Item Value Reference Range Interpretation Comments FLUID PH (test code = PHFL) 6.8-7.6 FLUID [id number] 12:11:00* Test Item Value Reference Range Interpretation Comments FLUID GLUCOSE (test code = GLUFL) 216 mg/dL FLUID [id number] 12:11:00* Test Item Value Reference Range Interpretation Comments FLUID PROTEIN (test code = PROTFL) 3.3 gram/dL FLUID [id number] 12:11:00* Test Item Value Reference Range Interpretation Comments FLUID LDH (test code = LDHFL) 115 IUnit/L BODY FLUID CELL [id number] 11:36:00* Test Item Value Reference Range Interpretation Comments FLUID SOURCE (test code = SOURCEFL) FLUID COLOR (test code = COLFL) COLORLESS FLUID APPEARANCE (test code = APPFL) FLUID WBC (test code = WBCFL) per mm3 0-150 FLUID RBC (test code = RBCFL) per mm3 0-50 FLUID TOTAL CELLS (test code = TCFL) cells/uL >0 TOTAL CELLS COUNTED ON DIFF (test code = TOTCELLFL) cells REVIEWED BY (test code = REVIEW) PATHOLOGIST FLUID [id number] 11:36:00* Test Item Value Reference Range Interpretation Comments FLUID PH (test code = PHFL) 6.8-7.6 FLUID [id number] 11:36:00* Test Item Value Reference Range Interpretation Comments FLUID GLUCOSE (test code = GLUFL) 216 mg/dL FLUID [id number] 11:36:00* Test Item Value Reference Range Interpretation Comments FLUID PROTEIN (test code = PROTFL) 3.3 gram/dL FLUID [id number] 11:36:00* Test Item Value Reference Range Interpretation Comments FLUID LDH (test code = LDHFL) 115 IUnit/L - XR CHEST 1 [id number] 10:45:00 FAX: Cuco Lombardi [phone] [place]: St: ADM Name: LACEY WOODWARD [facility] : [birth year] Age/S: 59/F [address] [facility] Unit #: [id number] Loc: V.[address] [place] [address] Phys: Best Nash MD Acct: [id number] Dis Date: Status: ADM IN PHONE #: [phone] Exam Date: 04/15/2020 1028 FAX #: [phone] Reason: S/P THORACENTESIS EXAMS: CPT CODE: [id number] XR CHEST 1 V 49546 REASON FOR EXAM: S/P THORA CENTESIS EXAM ORDER DATE: 04/15/2020 10:21 AM Orderin g: Best Nash MD Attending:Cuco Stoner MD Location:[facility] PROCEDURE: - XR CHEST 1 V COMPARISON: 04/10/2020 FINDINGS: Portable AP frontal view of the chest obtained at 10:28 AM shows clear lungs without evidence of consolidation. There is no evidence of effusion. The heart size is within normal limits. Pulmonary vasculat ures are unremarkable. IMPRESSION: No evidence of pneumothorax status post right thoracentesis at 1045 Reported and signed by: Best Nash M.D. CC: Cuco Wells Technologist: Mia Sanchez(R) Trnscrd Date/Time/By: 04/15/2020 (6252) : By: SorayaVTL Orig Print D /T: S: 04/15/2020 (1119) PAGE 1 S igned Report - SP THORACENTESIS [id number] 10:44:00 Name: LACEY GONZALEZ [facility] : 1960 Age/S: 59 / F [address] [facility] Unit #: [id number] Loc: [place] [address] Phys: Cuco Wells MD Acct: [id number] Dis Date: Status: ADM IN PHONE #: [phone] Exam Date: 04/15/2020 1020 FAX #: [phone] Reason: RIGHT PLEURAL EFFUSION EXAMS: CPT CODE: [id number] SP THORACENTESIS W/IMAG 00281 Fluoro Time: DAP (Gy m2): Air Kerma (mGy): REASON FOR EXAM: RIGHT PLEURAL EFFUSION Exam order date: 04/15/2020 10:10 AM PROCEDURE: Ultrasound guided right thoracentesis Ordering: Cuco Stoner MD Attending:Cuco Stoner MD Location:[facility] CPT code: 66726, 28130 FINDINGS: Prior to the procedure, informed consent was obtained after risks and benefits of the procedure were explained to the patient. The patient agreed and wanted to proceed. The patient was brought to special procedures. The back was prepped and draped in the usual fashion. All elements of maximal sterile techniques were followed. Ultrasound was first used for assessment of the effusion. US shows mild effusion. Images of the effusion were submitted to PACS. 2% local lidocaine was given for local anesthetic. Under real time ultrasound guidance, a micropuncture needle was advanced into the right thoracic cavity. A guide wire was inserted and an 8 Fr catheter was inserted in the thoracic cavity. 500 cc of fluid obtained. The catheter was removed and hemostasis obtained. Samples were submitted for gram stain, cultures, cell count, LDH, glucose, and protein. MEDICATIONS: None COMPLICATIONS: No immediate. Blood loss: less than 5cc IMPRESSION: 500 cc of fluid removed from the right thoracic cavity. at 1044 Reported and signed by: Best Nash M.D. CC: Cuco Wells Technologist: SIXTO BUTT JEWELRY FINISHER Trnscb Date/Time: 04/15/2020 (1044) t.[email or web address].VTL Orig Print D/T: S: 04/15/2020 (7513) PAGE 1 Signed Report [id number] 06:41:00* Test Item Value Reference Range Interpretation Comments GLUBED (test code = GLUBED) 143 mg/dL 74-106 H [facility] BASIC METABOLIC [id number] 05:25:00* Test Item Value Reference Range Interpretation Comments SODIUM (test code = NA) 138 mmol/L 136-145 N POTASSIUM (test code = K) 4.0 mmol/L 3.5-5.1 N CHLORIDE (test code = CL) 104.0 mmol/L 98-107 N CARBON DIOXIDE (test code = CO2) 26.0 mmol/L 21-32 N ANION GAP (test code = GAP) 12.0 10-20 N GLUCOSE (test code = GLU) 162 mg/dL 74-106 H BLOOD UREA NITROGEN (test code = BUN) 54 mg/dL 7-18 H GLOMERULAR FILTRATION RATE (test code = GFR) 13 mL/min >=60 Estimated GFR by using Modified MDRD formula.Chronic kidney disease is defined as either kidney damageor GFR <60 mL/min/1.73 m2 for >3 months. CREATININE (test code = CREAT) 3.50 mg/dL 0.55-1.02 H Note change in reference range due to change in reagent. BUN/CREATININE RATIO (test code = BUN/CREA) 15.5 10-20 N CALCIUM (test code = CA) 7.8 mg/dL 8.5-10.1 L BASIC METABOLIC [id number] 05:16:00* Test Item Value Reference Range Interpretation Comments SODIUM (test code = NA) 138 mmol/L 136-145 N POTASSIUM (test code = K) 4.0 mmol/L 3.5-5.1 N CHLORIDE (test code = CL) 104.0 mmol/L 98-107 N CARBON DIOXIDE (test code = CO2) mmol/L 21-32 ANION GAP (test code = GAP) 10-20 GLUCOSE (test code = GLU) mg/dL 74-106 BLOOD UREA NITROGEN (test code = BUN) mg/dL 7-18 GLOMERULAR FILTRATION RATE (test code = GFR) mL/min >=60 CREATININE (test code = CREAT) mg/dL 0.55-1.02 BUN/CREATININE RATIO (test code = BUN/CREA) 10-20 CALCIUM (test code = CA) mg/dL 8.5-10.1 [id number] 21:06:00* Test Item Value Reference Range Interpretation Comments GLUBED (test code = GLUBED) 253 mg/dL 74-106 H [facility] certified trimming press [facility]~ [id number] 18:43:00* Test Item Value Reference Range Interpretation Comments GLUBED (test code = GLUBED) 267 mg/dL 74-106 H Performed by certified trimming press operator at [facility] [id number] 13:11:00* Test Item Value Reference Range Interpretation Comments GLUBED (test code = GLUBED) 253 mg/dL 74-106 H Performed by certified trimming press operator at [facility] Novel Coronavirus 2019 [id number] 12:42:00* Test Item Value Reference Range Interpretation Comments Novel Coronavirus 2019 Inhouse (test code = COVNONPUI) Negative Negative Testing Criteria: Preprocedure ScreeningNovel Coronavirus 2019 Inhouse 2020-04-14 12:42:00* Test Item Value Reference Range Interpretation Comments Novel Coronavirus 2019 Inhouse (test code = COVNONPUI) Negative Negative Testing Criteria: Preprocedure [id number] 05:51:00* Test Item Value Reference Range Interpretation Comments GLUBED (test code = GLUBED) 139 mg/dL 74-106 H Performed by certified trimming press operator at [facility] [id number] 20:31:00* Test Item Value Reference Range Interpretation Comments GLUBED (test code = GLUBED) 210 mg/dL 74-106 H Performed by certified trimming press operator at [facility] [id number] 17:19:00* Test Item Value Reference Range Interpretation Comments GLUBED (test code = GLUBED) 203 mg/dL 74-106 H Performed by certified trimming press operator at [facility] FE W/TOTAL IRON BINDING CAP.2020-04-13 14:11:00* Test Item Value Reference Range Interpretation Comments SERUM IRON (test code = IRON) 31 ug/dL 50-175 L TOTAL IRON BINDING CAPACITY (test code = TIBC) 165 mcg/dL 250-450 L IRON SATURATION (test code = FESAT) 18.79 % 13-45 N [id number] 14:11:00* Test Item Value Reference Range Interpretation Comments FERRITIN (test code = JALEN) 171 ng/mL 8-388 N PROTHROMBIN [id number] 14:07:00* Test Item Value Reference Range Interpretation Comments PROTHROMBIN TIME PATIENT (test code = PTP) 12.7 seconds 9.0-14.0 N INTERNATIONAL NORMAL RATIO (test code = INR) 1.1 0.8-1.2 N The therapeutic range for oral anticoagulant therapy formost indications is an international normalized ratio (INR)of between 2.0 and 3.0. The recommended therapeutic INRrange for various clinical situations is listed below: Clinical Situation INR range Pulmonary e mbolism treatment (2.0-3.0)Venous thrombosis treatmentVenous thrombosis prophylaxis (high risk surgery)Prevention of systemic embolism from: Acute myocardial infarction Valvular heart disease Atrial fibrillation Mechanical prosthetic heart valves (2.5-3.5) IS PATIENT ON ANTICOAGULANTS? [id number] 13:12:00* Test Item Value Reference Range Interpretation Comments GLUBED (test code = GLUBED) 247 mg/dL 74-106 H Performed by certified trimming press operator at [facility] THROMBOPLASTIN TIME [id number] 10:19:00* Test Item Value Reference Range Interpretation Comments THROMBOPLASTIN TIME PARTIAL (test code = PTT) 32.7 seconds 23.0-37. 0 N IS PATIENT ON ANTICOAGULANTS? NBASIC METABOLIC [id number] 07:04:00* Test Item Value Reference Range Interpretation Comments SODIUM (test code = NA) 138 mmol/L 136-145 N POTASSIUM (test code = K) 3.8 mmol/L 3.5-5.1 N CHLORIDE (test code = CL) 104.0 mmol/L 98-107 N CARBON DIOXIDE (test code = CO2) 25.0 mmol/L 21-32 N ANION GAP (test code = GAP) 12.8 10-20 N GLUCOSE (test code = GLU) 183 mg/dL 74-106 H BLOOD UREA NITROGEN (test code = BUN) 57 mg/dL 7-18 H GLOMERULAR FILTRATION RATE (test code = GFR) 12 mL/min >=60 Estimated GFR by using Modified MDRD formula.Chronic kidney disease is defined as either kidney damageor GFR <60 mL/min/1.73 m2 for >3 months. CREATININE (test code = CREAT) 3.90 mg/dL 0.55-1.02 H Note change in reference range due to change in reagent. BUN/CREATININE RATIO (test code = BUN/CREA) 14.7 10-20 N CALCIUM (test code = CA) 7.6 mg/dL 8.5-10.1 L BASIC METABOLIC [id number] 06:56:00* Test Item Value Reference Range Interpretation Comments SODIUM (test code = NA) 138 mmol/L 136-145 N POTASSIUM (test code = K) 3.8 mmol/L 3.5-5.1 N CHLORIDE (test code = CL) 104.0 mmol/L 98-107 N CARBON DIOXIDE (test code = CO2) mmol/L 21-32 ANION GAP (test code = GAP) 10-20 GLUCOSE (test code = GLU) mg/dL 74-106 BLOOD UREA NITROGEN (test code = BUN) mg/dL 7-18 GLOMERULAR FILTRATION RATE (test code = GFR) mL/min >=60 CREATININE (test code = CREAT) mg/dL 0.55-1.02 BUN/CREATININE RATIO (test code = BUN/CREA) 10-20 CALCIUM (test code = CA) mg/dL 8.5-10.1 CBC W/AUTO [id number] 06:04:00* Test Item Value Reference Range Interpretation Comments WHITE BLOOD CELL (test code = WBC) 7.7 K/mm3 4.5-12.5 N RED BLOOD CELL (test code = RBC) 2.29 mill/mm3 3.7-5.2 L HEMOGLOBIN (test code = HGB) 7.7 gram/dL 11.5-15.5 L HEMATOCRIT (test code = HCT) 23.6 % 36.0-46.0 L MEAN CELL VOLUME (test code = MCV) 103.1 fL 80-98 H MEAN CELL HGB (test code = MCH) 33.6 picogram 27.0-33.0 H MEAN CELL HGB CONCETRATION (test code = MCHC) 32.6 gram/dL 33.0-36. 0 L RED CELL DISTRIBUTION WIDTH (test code = RDW) 12.8 % 11.6-16. 2 N RED CELL DISTRIBUTION WIDTH SD (test code = RDW-SD) 47.3 fL 37 .0-51.0 N PLATELET COUNT (test code = PLT) 178 K/mm3 150-450 N MEAN PLATELET VOLUME (test code = MPV) 10.9 fL 6.7-11.0 N NEUTROPHIL % (test code = NT%) 61.1 % 39.0-69.0 N IMMATURE GRANULOCYTE % (test code = IG%) 0.9 % 0.0-5.0 N LYMPHOCYTE % (test code = LY%) 23.3 % 25.0-55.0 L MONOCYTE % (test code = MO%) 9.2 % 0.0-10.0 N EOSINOPHIL % (test code = EO%) 5.0 % 0.0-5.0 N BASOPHIL % (test code = BA%) 0.5 % 0.0-1.0 N NUCLEATED RBC % (test code = NRBC%) 0.0 % 0-0 N NEUTROPHIL # (test code = NT#) 4.68 K/mm3 1.8-7.7 N IMMATURE GRANULOCYTE # (test code = IG#) 0.07 x10 3/uL 0-0.03 H LYMPHOCYTE # (test code = LY#) 1.78 K/mm3 1.0-5.0 N MONOCYTE # (test code = MO#) 0.70 K/mm3 0-0.8 N EOSINOPHIL # (test code = EO#) 0.38 K/mm3 0.0-0.5 N BASOPHIL # (test code = BA#) 0.04 K/mm3 0.0-0.2 N NUCLEATED RBC # (test code = NRBC#) 0.00 K/mm3 0.0-0.1 N MANUAL DIFF REQUIRED (test code = MDIFF) NO - US CHST W/[id number] 16:20:00 Name: LACEY GONZALEZ [facility] : 1960 Age/S: 59 / F [address] Unit #: [id number] Loc: [place] [address] Phys: Tate Wilson MD Acct: [id number] Dis Date: Status: ADM IN PHONE #: [phone] Exam Date: 04/11/2020 1526 FAX #: [phone] Reason: pleural effusion EXAMS: CPT CODE: [id number] US CHST W/MEDIASTINUM 21919 HISTORY: Pleural effusion. COMPARISON: CT scan from April 11, 2020. Location: [facility]. Small left and moderate right pleural effusion with subsegmental atelectasis. IMPRESSION: Small left and moderate right effusion. at 1620 Reported and signed by: Farhad Benedict M.D. CC: Tate Wilson MD; Cuco Wells Technologist: LUIS GREENE Trnscb Date/Time: 04/11/2020 (162) t.[email or web address] Orig Print D/T: S: 04/11/2020 (1623) Probe: PAGE 1 Signed Report - CT CHEST W/O [id number] 10:18:00 Name: LACEY GONZALEZ [facility] : 1960 Age/S: 59 / F [address] Unit #: [id number] Loc: [place] [address] Phys: Cuco Wells MD Acct: [id number] Dis Date: Status: ADM IN PHONE #: Exam Date: 04/11/2020945 FAX #: [phone] Reason: sob/pulm edema EXAMS: CPT CODE: [id number] CT CHEST W/O CONTRAST 01816 EXAM: CT of the chest wit hout contrast; INFORMATION: Shortness of breath, pulmonary edema; TECHNIQUE AND FINDINGS: CT dose reduction protocol; 5 mm cuts through the chest without contrast. There is a moderate, partially loculated right-sided pleural effusion and a minimal left pleural effusio n. Partial atelectatic changes of the right lower lobe; the remainder the lungs is clear; no infiltrates. Extensive calcifications of the left coronary artery. The heart is borderline in size. Scans through the upper abdomen show a nodular liver, consistent with cirrhosis. IMPRESSION: 1. Moderate, partially loculated right-sided pleural effusion and minimal left effusion. 2. No other significant ca rdiothoracic abnormalities. 3. Cirrhosis. Location co de: [facility] at 1018 Reported and signed by: Jesse Roper M.D. CC: Cuco Wells [facility] Technologist:Yulisa Goodman RT(R),CT CTDI: DLP: Trnscb Date/Time: 04/11/2020 (1018) Luis Orig Print D/T: S: 04/11/2020 (1022) PAGE 1 Signed Report [id number] 07:24:00 * Test Item Value Reference Range Interpretation Comments TROPONIN-I (test code = TROPI) 0.943 ng/mL 0-0.045 HH Results previously called COMMENTS TO RIVETER: COLLECT 3 HOURS AFTER PREVIOUS [id number] 06:34:00* Test Item Value Reference Range Interpretation Comments GLUBED (test code = GLUBED) 123 mg/dL 74-106 H Performed by certified trimming press operator at [facility] [id number] 03:24:00* Test Item Value Reference Range Interpretation Comments TROPONIN-I (test code = TROPI) 1.270 ng/mL 0-0.045 COMMENTS TO RIVETER: COLLECT 3 HOURS AFTER PREVIOUS [id number] 00:08:00* Test Item Value Reference Range Interpretation Comments GLUBED (test code = GLUBED) 86 mg/dL 74-106 N Performed by certified trimming press operator at [facility] [id number] 19:01:00* Test Item Value Reference Range Interpretation Comments TROPONIN-I (test code = TROPI) 1.810 ng/mL 0-0.045 HH RESULT VERIFIED BY REPEAT ANALYSIS B-TYPE NATRIURETIC [id number] 16:28:00* Test Item Value Reference Range Interpretation Comments B-TYPE NATRIURETIC PEPTIDE (test code = BNP) 1530 pgram/mL 0-100 H BASIC METABOLIC [id number] 14:38:00* Test Item Value Reference Range Interpretation Comments SODIUM (test code = NA) 137 mmol/L 136-145 N POTASSIUM (test code = K) 4.2 mmol/L 3.5-5.1 N CHLORIDE (test code = CL) 106.0 mmol/L 98-107 N CARBON DIOXIDE (test code = CO2) 21.0 mmol/L 21-32 N ANION GAP (test code = GAP) 14.2 10-20 N GLUCOSE (test code = GLU) 162 mg/dL 74-106 H BLOOD UREA NITROGEN (test code = BUN) 65 mg/dL 7-18 H GLOMERULAR FILTRATION RATE (test code = GFR) 10 mL/min >=60 Estimated GFR by using Modified MDRD formula.Chronic kidney disease is defined as either kidney damageor GFR <60 mL/min/1.73 m2 for >3 months. CREATININE (test code = CREAT) 4.40 mg/dL 0.55-1.02 H Note change in reference range due to change in reagent. BUN/CREATININE RATIO (test code = BUN/CREA) 14.9 10-20 N CALCIUM (test code = CA) 8.1 mg/dL 8.5-10.1 L [id number] 14:38:00* Test Item Value Reference Range Interpretation Comments TROPONIN-I (test code = TROPI) 2.280 ng/mL 0-0.045 Results called to [id number] by REGLA 04/10/20 1436Critical results verified and read back by Nurse? Y BASIC METABOLIC [id number] 14:23:00* Test Item Value Reference Range Interpretation Comments SODIUM (test code = NA) 137 mmol/L 136-145 N POTASSIUM (test code = K) 4.2 mmol/L 3.5-5.1 N CHLORIDE (test code = CL) 106.0 mmol/L 98-107 N CARBON DIOXIDE (test code = CO2) mmol/L 21-32 ANION GAP (test code = GAP) 10-20 GLUCOSE (test code = GLU) mg/dL 74-106 BLOOD UREA NITROGEN (test code = BUN) mg/dL 7-18 GLOMERULAR FILTRATION RATE (test code = GFR) mL/min >=60 CREATININE (test code = CREAT) mg/dL 0.55-1.02 BUN/CREATININE RATIO (test code = BUN/CREA) 10-20 CALCIUM (test code = CA) mg/dL 8.5-10.1 [id number] 14:23:00* Test Item Value Reference Range Interpretation Comments TROPONIN-I (test code = TROPI) ng/mL 0-0.045 CBC W/O [id number] 14:03:00* Test Item Value Reference Range Interpretation Comments WHITE BLOOD CELL (test code = WBC) 8.3 K/mm3 4.5-12.5 N RED BLOOD CELL (test code = RBC) 2.27 mill/mm3 3.7-5.2 L HEMOGLOBIN (test code = HGB) 7.7 gram/dL 11.5-15.5 L HEMATOCRIT (test code = HCT) 23.8 % 36.0-46.0 L MEAN CELL VOLUME (test code = MCV) 104.8 fL 80-98 H MEAN CELL HGB (test code = MCH) 33.9 picogram 27.0-33.0 H MEAN CELL HGB CONCETRATION (test code = MCHC) 32.4 gram/dL 33.0-36. 0 L RED CELL DISTRIBUTION WIDTH (test code = RDW) 13.1 % 11.6-16. 2 N PLATELET COUNT (test code = PLT) 147 K/mm3 150-450 L MEAN PLATELET VOLUME (test code = MPV) 11.4 fL 6.7-11.0 H - XR CHEST 1 [id number] 13:23:00 FAX: Brian [place] MD [phone] [place]: St: REG Name: LACEY WOODWARD [facility] : [birth year] Age/S: 59/F [address] [facility] Unit #: [id number] Loc: [place] [address] Phys: Brian [place] MD Acct: [id number] Dis Date: Status: REG ER PHONE #: [phone] Exam Date: 04/10/2020 1309 FAX #: [phone] Reason: Shortness of Breath EXAMS: CPT CODE: [id number] XR CHEST 1 V 42900 HISTORY: Shortness of breath. COMPARISON: April 04, 2020. Location: [facility]. S uboptimal inspiration with crowding of bronchovascular markings and depend ent changes especially on the right side. No definite infiltrates, effusio n or congestion. Cardiomegaly. IMPRESSION: No acute infiltrates, effusion or congestion. Markedly suboptimal inspirati on resulting in crowding of bronchovascular markings.. Examination with inspiration recommended. at 1323 Reported and signed by: Farhad martinez M.D. CC: Brian [place] MD Technologist: Mia Sanchez(R) Trnscrd Date/Time/By: 04/10/2020 (1323) : By: [email or web address] Orig Print D /T: S: 04/10/2020 (8082) PAGE 1 S igned Report [id number] 11:07:00* Test Item Value Reference Range Interpretation Comments GLUBED (test code = GLUBED) 157 mg/dL 74-106 H Performed by certified trimming press operator at [facility] [id number] 07:51:00* Test Item Value Reference Range Interpretation Comments GLUBED (test code = GLUBED) 158 mg/dL 74-106 H Performed by certified trimming press operator at [facility] [id number] 20:39:00* Test Item Value Reference Range Interpretation Comments GLUBED (test code = GLUBED) 151 mg/dL 74-106 H Performed by certified trimming press operator at [facility] [id number] 16:44:00* Test Item Value Reference Range Interpretation Comments GLUBED (test code = GLUBED) 147 mg/dL 74-106 H Performed by certified trimming press operator at [facility] [id number] 12:19:00* Test Item Value Reference Range Interpretation Comments GLUBED (test code = GLUBED) 164 mg/dL 74-106 H Performed by certified trimming press operator at [facility] BASIC METABOLIC [id number] 10:37:00* Test Item Value Reference Range Interpretation Comments SODIUM (test code = NA) 139 mmol/L 136-145 N POTASSIUM (test code = K) 4.5 mmol/L 3.5-5.1 N CHLORIDE (test code = CL) 110.0 mmol/L 98-107 H CARBON DIOXIDE (test code = CO2) 20.0 mmol/L 21-32 L ANION GAP (test code = GAP) 13.5 10-20 N GLUCOSE (test code = GLU) 159 mg/dL 74-106 H BLOOD UREA NITROGEN (test code = BUN) 51 mg/dL 7-18 H GLOMERULAR FILTRATION RATE (test code = GFR) 12 mL/min >=60 Estimated GFR by using Modified MDRD formula.Chronic kidney disease is defined as either kidney damageor GFR <60 mL/min/1.73 m2 for >3 months. CREATININE (test code = CREAT) 3.70 mg/dL 0.55-1.02 H Note change in reference range due to change in reagent. BUN/CREATININE RATIO (test code = BUN/CREA) 13.7 10-20 N CALCIUM (test code = CA) 7.9 mg/dL 8.5-10.1 L BASIC METABOLIC [id number] 10:31:00* Test Item Value Reference Range Interpretation Comments SODIUM (test code = NA) 139 mmol/L 136-145 N POTASSIUM (test code = K) 4.5 mmol/L 3.5-5.1 N CHLORIDE (test code = CL) 110.0 mmol/L 98-107 H CARBON DIOXIDE (test code = CO2) mmol/L 21-32 ANION GAP (test code = GAP) 10-20 GLUCOSE (test code = GLU) mg/dL 74-106 BLOOD UREA NITROGEN (test code = BUN) mg/dL 7-18 GLOMERULAR FILTRATION RATE (test code = GFR) mL/min >=60 CREATININE (test code = CREAT) mg/dL 0.55-1.02 BUN/CREATININE RATIO (test code = BUN/CREA) 10-20 CALCIUM (test code = CA) 7.9 mg/dL 8.5-10.1 L [id number] 08:01:00* Test Item Value Reference Range Interpretation Comments GLUBED (test code = GLUBED) 134 mg/dL 74-106 H Performed by certified trimming press operator at [facility] [id number] 20:52:00* Test Item Value Reference Range Interpretation Comments GLUBED (test code = GLUBED) 153 mg/dL 74-106 H Performed by certified trimming press operator at [facility] [id number] 17:04:00* Test Item Value Reference Range Interpretation Comments GLUBED (test code = GLUBED) 151 mg/dL 74-106 H Performed by certified trimming press operator at [facility] [id number] 11:50:00* Test Item Value Reference Range Interpretation Comments GLUBED (test code = GLUBED) 129 mg/dL 74-106 H Performed by certified trimming press operator at [facility] BASIC METABOLIC [id number] 11:10:00* Test Item Value Reference Range Interpretation Comments SODIUM (test code = NA) 139 mmol/L 136-145 N POTASSIUM (test code = K) 4.4 mmol/L 3.5-5.1 N CHLORIDE (test code = CL) 109.0 mmol/L 98-107 H CARBON DIOXIDE (test code = CO2) 21.0 mmol/L 21-32 N ANION GAP (test code = GAP) 13.4 10-20 N GLUCOSE (test code = GLU) 136 mg/dL 74-106 H BLOOD UREA NITROGEN (test code = BUN) 48 mg/dL 7-18 H GLOMERULAR FILTRATION RATE (test code = GFR) 12 mL/min >=60 Estimated GFR by using Modified MDRD formula.Chronic kidney disease is defined as either kidney damageor GFR <60 mL/min/1.73 m2 for >3 months. CREATININE (test code = CREAT) 3.80 mg/dL 0.55-1.02 H Note change in reference range due to change in reagent. BUN/CREATININE RATIO (test code = BUN/CREA) 12.8 10-20 N CALCIUM (test code = CA) 7.5 mg/dL 8.5-10.1 L BASIC METABOLIC [id number] 11:05:00* Test Item Value Reference Range Interpretation Comments SODIUM (test code = NA) 139 mmol/L 136-145 N POTASSIUM (test code = K) 4.4 mmol/L 3.5-5.1 N CHLORIDE (test code = CL) 109.0 mmol/L 98-107 H CARBON DIOXIDE (test code = CO2) mmol/L 21-32 ANION GAP (test code = GAP) 10-20 GLUCOSE (test code = GLU) mg/dL 74-106 BLOOD UREA NITROGEN (test code = BUN) mg/dL 7-18 GLOMERULAR FILTRATION RATE (test code = GFR) mL/min >=60 CREATININE (test code = CREAT) mg/dL 0.55-1.02 BUN/CREATININE RATIO (test code = BUN/CREA) 10-20 CALCIUM (test code = CA) mg/dL 8.5-10.1 [id number] 07:39:00* Test Item Value Reference Range Interpretation Comments GLUBED (test code = GLUBED) 118 mg/dL 74-106 H Performed by certified trimming press operator at [facility] [id number] 20:06:00* Test Item Value Reference Range Interpretation Comments GLUBED (test code = GLUBED) 185 mg/dL 74-106 H Performed by certified trimming press operator at [facility] [id number] 15:51:00* Test Item Value Reference Range Interpretation Comments GLUBED (test code = GLUBED) 122 mg/dL 74-106 H Performed by certified trimming press operator at [facility] [id number] 12:13:00* Test Item Value Reference Range Interpretation Comments GLUBED (test code = GLUBED) 108 mg/dL 74-106 H Performed by certified trimming press operator at [facility] LACTIC [id number] 03:48:00* Test Item Value Reference Range Interpretation Comments LACTIC ACID (test code = LACT) 1.0 mmol/L 0.4-1.9 N - CT ABD PELVIS W/O [id number] 01:05:00 Name: LACEY GONZALEZ [facility] : 1960 Age/S: 59 / F [address] Unit #: [id number] Loc: [place] [address] Phys: Azeb Beyer DO Acct: [id number] Dis Date: Status: REG ER PHONE #: [phone] Exam Date: 04/05/2020 0058 FAX #: [phone] Reason: CODE SEPSIS EXAMS: CPT CODE: [id number] CT ABD PELVIS W/O CONT 47553 EXAM: CT ABDOMEN AND PELVIS WITHOUT IV CONTRAST DICTATION LOCATION: 8 HISTORY: Female, 59 years of age with abdominal pain, CODE SEPSIS TECHNIQUE: Contrast: No IV contrast was given. No GI contrast was given. Noncontrast phase: Abdomen and pelvis Reconstructions: Coronal and sagittal planes One or more of the following dose reduction techniques were used: Automated exposure control; adjustment of the mA and/or kV according to the patient size; and/or use of iterative reconstruction technique. COMPARISON: Previous CT abdomen and pelvis without contrast performed 01/22/2018 FINDINGS: Statements: Lack of intravenous contrast compromises evaluation of abdominopelvic organs and vasculature. Lower thorax: Unremarkable. Hepatobiliary: Liver is slightly small and lobulated suggesting cirrhosis. No discrete hepatic mass. Status post cholecystectomy. No biliary dilation. Pancreas: Normal. Spleen: Normal. Adrenals: Normal. Genitourinary: Renal artery calcifications seen bilaterally. No obvious renal calculus or hydronephrosis. No ureteral stones. Urinary bladder is unremarkable. The visualized reproductive organs are unremarkable. Gastrointestinal: No bowel wall thickening, bowel obstruction or perienteric inflammation. The appendix is normal. Vascular: Atherosclerotic calcifications are seen within the aorta and branch vessels. No aneurysm. IVC unremarkable. PAGE 1 Signed Report (CONTINUED) Name: LACEY GONZALEZ [facility] : 1960 Age/S: 59 / F [address] [facility] Unit #: [id number] Loc: [place] [address] Phys: Azeb Beyer DO Acct: [id number] Dis Date: Status: REG ER PHONE #: [phone] Exam Date: 0058 FAX #: [phone] Reason: CODE SEPSIS EXAMS: CPT CODE: [id number] CT ABD PELVIS W/O CONT 66380 <Continued> Lymphatics: No enlarged lymph nodes by CT size criteria. Bones/Soft Tissues: No acute osseous findings. Degenerative disease seen throughout the spine. No ventral hernias. Peritoneum/Other: The patient has a peritoneal dialysis catheter in place. No free intraperitoneal air. No free intraperitoneal fluid. IMPRESSION: 1. No findings in abdomen or pelvis. 2. Cirrhotic morphology to liver. 3. Peritoneal dialysis catheter is present. No free fluid or free air. at 0105 Reported and signed by: Lucrecia Baxter MD CC: Azeb Beyer DO Technologist:Jose Alfredo Winston, RT(R)(CT) CTDI: DLP: Trnscb Date/Time: 04/05/2020 (010) t.SDR.CLW Orig Print D/T: S: 04/05/2020 (010) PAGE 2 Signed Report URINALYSIS [id number] 00:59:00* Test Item Value Reference Range Interpretation Comments UA COLOR (test code = COLU) Light-Yellow YELLOW UA APPEARANCE (test code = APPU) CLEAR CLEAR UA GLUCOSE DIPSTICK (test code = DGLUU) NEGATIVE mg/dL NEGATIVE UA BILIRUBIN DIPSTICK (test code = BILU) NEGATIVE mg/dL NEGATIVE UA KETONE DIPSTICK (test code = KETU) NEGATIVE mg/dL NEGATIVE UA SPECIFIC GRAVITY (test code = SGU) 1.011 1.001-1.035 UA BLOOD DIPSTICK (test code = TRACY) 0.1 mg/dL (1+) mg/dL NEGATIVE A UA PH DIPSTICK (test code = CLEVE) 6.0 5.0-8.0 UA PROTEIN DIPSTICK (test code = PROU) 200 (2+) mg/dL NEGATIVE A UA UROBILINIOGEN DIPSTICK (test code = URO) Normal mg/dL NEGATIVE UA NITRITE DIPSTICK (test code = JIM) NEGATIVE NEGATIVE UA LEUKOCYTE ESTERASE W REFLEX (test code = LEUUR) NEGATIVE Joshua/uL NEGATIVE UA WBC (test code = WBCU) 0-5 per HPF 0-5 UA RBC (test code = RBCU) 3-5 #/HPF 0-5 UA EPITHELIAL CELLS (test code = EPIU) FEW per HPF FEW UA BACTERIA (test code = BACU) NONE SEEN #/HPF NONE UA MUCUS (test code = MUCU) FEW #/LPF FEW Urine Source? Clean CatchBASIC METABOLIC [id number] 00:15:00* Test Item Value Reference Range Interpretation Comments SODIUM (test code = NA) 140 mmol/L 136-145 N POTASSIUM (test code = K) 4.2 mmol/L 3.5-5.1 N CHLORIDE (test code = CL) 105.0 mmol/L 98-107 N CARBON DIOXIDE (test code = CO2) 21.0 mmol/L 21-32 N ANION GAP (test code = GAP) 18.2 10-20 N GLUCOSE (test code = GLU) 161 mg/dL 74-106 H BLOOD UREA NITROGEN (test code = BUN) 51 mg/dL 7-18 H GLOMERULAR FILTRATION RATE (test code = GFR) 13 mL/min >=60 Estimated GFR by using Modified MDRD formula.Chronic kidney disease is defined as either kidney damageor GFR <60 mL/min/1.73 m2 for >3 months. CREATININE (test code = CREAT) 3.60 mg/dL 0.55-1.02 H Note change in reference range due to change in reagent. BUN/CREATININE RATIO (test code = BUN/CREA) 14.0 10-20 N CALCIUM (test code = CA) 8.5 mg/dL 8.5-10.1 N HEPATIC FUNCTION [id number] 00:15:00* Test Item Value Reference Range Interpretation Comments TOTAL PROTEIN (test code = PROT) 8.4 gram/dL 6.4-8.2 H ALBUMIN (test code = ALB) 3.4 g/dL 3.4-5.0 N GLOBULIN (test code = GLOB) 5.0 gram/dL 2.7-4.2 H ALBUMIN/GLOBULIN RATIO (test code = A/G) 0.7 0.75-1.50 L BILIRUBIN TOTAL (test code = BILT) 0.50 mg/dL 0.0-1.0 N BILIRUBIN DIRECT (test code = BILD) 0.16 mg/dL 0.0-0.20 N SGOT/AST (test code = AST) 166 IUnit/L 15-37 H SGPT/ALT (test code = ALT) 90 IUnit/L 12-78 H ALKALINE PHOSPHATASE TOTAL (test code = ALKP) 220 IUnit/L 45-117 H Note change in reference range due to change in reagent. [id number] 00:15:00* Test Item Value Reference Range Interpretation Comments LIPASE (test code = LIP) 185 U/L 73.0-393.0 N [id number] 00:15:00* Test Item Value Reference Range Interpretation Comments TROPONIN-I (test code = TROPI) 0.016 ng/mL 0-0.045 N LACTIC [id number] 00:12:00* Test Item Value Reference Range Interpretation Comments LACTIC ACID (test code = LACT) 1.1 mmol/L 0.4-1.9 N BASIC METABOLIC [id number] 00:01:00* Test Item Value Reference Range Interpretation Comments SODIUM (test code = NA) 140 mmol/L 136-145 N POTASSIUM (test code = K) 4.2 mmol/L 3.5-5.1 N CHLORIDE (test code = CL) 105.0 mmol/L 98-107 N CARBON DIOXIDE (test code = CO2) mmol/L 21-32 ANION GAP (test code = GAP) 10-20 GLUCOSE (test code = GLU) mg/dL 74-106 BLOOD UREA NITROGEN (test code = BUN) mg/dL 7-18 GLOMERULAR FILTRATION RATE (test code = GFR) mL/min >=60 CREATININE (test code = CREAT) mg/dL 0.55-1.02 BUN/CREATININE RATIO (test code = BUN/CREA) 10-20 CALCIUM (test code = CA) mg/dL 8.5-10.1 HEPATIC FUNCTION [id number] 00:01:00* Test Item Value Reference Range Interpretation Comments TOTAL PROTEIN (test code = PROT) gram/dL 6.4-8.2 ALBUMIN (test code = ALB) g/dL 3.4-5.0 GLOBULIN (test code = GLOB) gram/dL 2.7-4.2 ALBUMIN/GLOBULIN RATIO (test code = A/G) 0.75-1.50 BILIRUBIN TOTAL (test code = BILT) mg/dL 0.0-1.0 BILIRUBIN DIRECT (test code = BILD) mg/dL 0.0-0.20 SGOT/AST (test code = AST) IUnit/L 15-37 SGPT/ALT (test code = ALT) IUnit/L 12-78 ALKALINE PHOSPHATASE TOTAL (test code = ALKP) IUnit/L 45-117 [id number] 00:01:00* Test Item Value Reference Range Interpretation Comments LIPASE (test code = LIP) U/L 73.0-393.0 [id number] 00:01:00* Test Item Value Reference Range Interpretation Comments TROPONIN-I (test code = TROPI) ng/mL 0-0.045 PROTHROMBIN [id number] 23:57:00* Test Item Value Reference Range Interpretation Comments PROTHROMBIN TIME PATIENT (test code = PTP) 12.1 seconds 9.0-14.0 N INTERNATIONAL NORMAL RATIO (test code = INR) 1.0 0.8-1.2 N The therapeutic range for oral anticoagulant therapy formost indications is an international normalized ratio (INR)of between 2.0 and 3.0. The recommended therapeutic INRrange for various clinical situations is listed below: Clinical Situation INR range Pulmonary e mbolism treatment (2.0-3.0)Venous thrombosis treatmentVenous thrombosis prophylaxis (high risk surgery)Prevention of systemic embolism from: Acute myocardial infarction Valvular heart disease Atrial fibrillation Mechanical prosthetic heart valves (2.5-3.5) IS PATIENT ON ANTICOAGULANTS? NTHROMBOPLASTIN TIME [id number] 23:57:00* Test Item Value Reference Range Interpretation Comments THROMBOPLASTIN TIME PARTIAL (test code = PTT) 36.5 seconds 23.0-37. 0 N IS PATIENT ON ANTICOAGULANTS? N- XR CHEST 1 [id number] 23:56:00 FAX: Azeb Beyer DO [place]: B St: REG Name: LACEY WOODWARD [facility] : [birth year] Age/S: 59/F [address] [facility] Unit #: [id number] Loc: [place] [address] Phys: Azeb Beyer DO Acct: [id number] Dis Date: Status: REG ER PHONE #: [phone] Exam Date: 04/04/20202345 FAX #: [phone] Reason: CODE SEPSIS EXAMS: CPT CODE: [id number] XR CHEST 1 V 27575 EXAM: - XR CHEST 1 V HISTORY: Chest pain. COMPARISON: January 22, 2018. F INDINGS: Single AP view of the chest is provided. Heart size and vascularity are within normal limits. The lungs are clear of focal c onsolidation. No effusion, pneumothorax, or acute osseous abnormality. IMPRESSION: No radiographic evidence of acute card iopulmonary process. Electronically Signed by Wali Young MD on 0 04/04/2020 at 2718 Reported and signed by: Wali Young MD CC: Azeb Beyer DO Technologist: RACHELLE JOHNSON, RT(R) Trnscrd Date/Time/By: 04/04/2020 (5869) : By: [email or web address] Orig Print D/T: S: 04/04/2020 (9985) PAGE 1 Signed Report CBC W/O [id number] 23:50:00* Test Item Value Reference Range Interpretation Comments WHITE BLOOD CELL (test code = WBC) 8.6 K/mm3 4.5-12.5 N RED BLOOD CELL (test code = RBC) 2.69 mill/mm3 3.7-5.2 L HEMOGLOBIN (test code = HGB) 9.2 gram/dL 11.5-15.5 L HEMATOCRIT (test code = HCT) 27.6 % 36.0-46.0 L MEAN CELL VOLUME (test code = MCV) 102.6 fL 80-98 H MEAN CELL HGB (test code = MCH) 34.2 picogram 27.0-33.0 H MEAN CELL HGB CONCETRATION (test code = MCHC) 33.3 gram/dL 33.0-36. 0 N RED CELL DISTRIBUTION WIDTH (test code = RDW) 12.6 % 11.6-16. 2 N PLATELET COUNT (test code = PLT) 122 K/mm3 150-450 L MEAN PLATELET VOLUME (test code = MPV) 11.3 fL 6.7-11.0 H [id number] 16:16:00* Test Item Value Reference Range Interpretation Comments GLUBED (test code = GLUBED) 103 mg/dL 74-106 N Performed by certified trimming press operator at [facility] [id number] 08:28:00* Test Item Value Reference Range Interpretation Comments GLUBED (test code = GLUBED) 127 mg/dL 74-106 H Performed by certified trimming press operator at [facility] [id number] 07:56:00* Test Item Value Reference Range Interpretation Comments GLUBED (test code = GLUBED) 66 mg/dL 74-106 L Performed by certified trimming press operator at [facility] Novel Coronavirus 2019 [id number] 18:25:00* Test Item Value Reference Range Interpretation Comments Novel Coronavirus 2019 Inhouse (test code = COVNONPUI) Negative Negative Testing Criteria: Preprocedure ScreeningComments: 03/27/20Novel Coronavirus 2019 [id number] 18:25:00* Test Item Value Reference Range Interpretation Comments Novel Coronavirus 2019 Inhouse (test code = COVNONPUI) Negative Negative Testing Criteria: Preprocedure ScreeningComments: 03/27/20COMPREHENSIVE METABOLIC [id number] 18:20:00* Test Item Value Reference Range Interpretation Comments SODIUM (test code = NA) 141 mmol/L 136-145 N POTASSIUM (test code = K) 4.6 mmol/L 3.5-5.1 N CHLORIDE (test code = CL) 110.0 mmol/L 98-107 H CARBON DIOXIDE (test code = CO2) 24.0 mmol/L 21-32 N ANION GAP (test code = GAP) 11.6 10-20 N GLUCOSE (test code = GLU) 161 mg/dL 74-106 H BLOOD UREA NITROGEN (test code = BUN) 58 mg/dL 7-18 H GLOMERULAR FILTRATION RATE (test code = GFR) 13 mL/min >=60 Estimated GFR by using Modified MDRD formula.Chronic kidney disease is defined as either kidney damageor GFR <60 mL/min/1.73 m2 for >3 months. CREATININE (test code = CREAT) 3.60 mg/dL 0.55-1.02 H Note change in reference range due to change in reagent. BUN/CREATININE RATIO (test code = BUN/CREA) 16.1 10-20 N TOTAL PROTEIN (test code = PROT) 8.1 gram/dL 6.4-8.2 N ALBUMIN (test code = ALB) 3.3 g/dL 3.4-5.0 L GLOBULIN (test code = GLOB) 4.8 gram/dL 2.7-4.2 H ALBUMIN/GLOBULIN RATIO (test code = A/G) 0.7 0.75-1.50 L CALCIUM (test code = CA) 7.9 mg/dL 8.5-10.1 L BILIRUBIN TOTAL (test code = BILT) 0.30 mg/dL 0.0-1.0 N SGOT/AST (test code = AST) 32 IUnit/L 15-37 N SGPT/ALT (test code = ALT) 35 IUnit/L 12-78 N ALKALINE PHOSPHATASE TOTAL (test code = ALKP) 158 IUnit/L 45-117 H Note change in reference range due to change in reagent. COMPREHENSIVE METABOLIC [id number] 18:13:00* Test Item Value Reference Range Interpretation Comments SODIUM (test code = NA) 141 mmol/L 136-145 N POTASSIUM (test code = K) 4.6 mmol/L 3.5-5.1 N CHLORIDE (test code = CL) 110.0 mmol/L 98-107 H CARBON DIOXIDE (test code = CO2) mmol/L 21-32 ANION GAP (test code = GAP) 10-20 GLUCOSE (test code = GLU) mg/dL 74-106 BLOOD UREA NITROGEN (test code = BUN) mg/dL 7-18 GLOMERULAR FILTRATION RATE (test code = GFR) mL/min >=60 CREATININE (test code = CREAT) mg/dL 0.55-1.02 BUN/CREATININE RATIO (test code = BUN/CREA) 10-20 TOTAL PROTEIN (test code = PROT) gram/dL 6.4-8.2 ALBUMIN (test code = ALB) g/dL 3.4-5.0 GLOBULIN (test code = GLOB) gram/dL 2.7-4.2 ALBUMIN/GLOBULIN RATIO (test code = A/G) 0.75-1.50 CALCIUM (test code = CA) mg/dL 8.5-10.1 BILIRUBIN TOTAL (test code = BILT) mg/dL 0.0-1.0 SGOT/AST (test code = AST) IUnit/L 15-37 SGPT/ALT (test code = ALT) IUnit/L 12-78 ALKALINE PHOSPHATASE TOTAL (test code = ALKP) IUnit/L 45-117 CBC W/AUTO [id number] 18:05:00* Test Item Value Reference Range Interpretation Comments WHITE BLOOD CELL (test code = WBC) 4.3 K/mm3 4.5-12.5 L RED BLOOD CELL (test code = RBC) 2.40 mill/mm3 3.7-5.2 L HEMOGLOBIN (test code = HGB) 8.1 gram/dL 11.5-15.5 L HEMATOCRIT (test code = HCT) 25.1 % 36.0-46.0 L MEAN CELL VOLUME (test code = MCV) 104.6 fL 80-98 H MEAN CELL HGB (test code = MCH) 33.8 picogram 27.0-33.0 H MEAN CELL HGB CONCETRATION (test code = MCHC) 32.3 gram/dL 33.0-36. 0 L RED CELL DISTRIBUTION WIDTH (test code = RDW) 13.3 % 11.6-16. 2 N RED CELL DISTRIBUTION WIDTH SD (test code = RDW-SD) 51.0 fL 37 .0-51.0 N PLATELET COUNT (test code = PLT) 129 K/mm3 150-450 L MEAN PLATELET VOLUME (test code = MPV) 11.7 fL 6.7-11.0 H NEUTROPHIL % (test code = NT%) 56.0 % 39.0-69.0 N IMMATURE GRANULOCYTE % (test code = IG%) 0.2 % 0.0-5.0 N LYMPHOCYTE % (test code = LY%) 27.8 % 25.0-55.0 N MONOCYTE % (test code = MO%) 9.4 % 0.0-10.0 N EOSINOPHIL % (test code = EO%) 6.1 % 0.0-5.0 H BASOPHIL % (test code = BA%) 0.5 % 0.0-1.0 N NUCLEATED RBC % (test code = NRBC%) 0.0 % 0-0 N NEUTROPHIL # (test code = NT#) 2.38 K/mm3 1.8-7.7 N IMMATURE GRANULOCYTE # (test code = IG#) 0.01 x10 3/uL 0-0.03 N LYMPHOCYTE # (test code = LY#) 1.18 K/mm3 1.0-5.0 N MONOCYTE # (test code = MO#) 0.40 K/mm3 0-0.8 N EOSINOPHIL # (test code = EO#) 0.26 K/mm3 0.0-0.5 N BASOPHIL # (test code = BA#) 0.02 K/mm3 0.0-0.2 N NUCLEATED RBC # (test code = NRBC#) 0.00 K/mm3 0.0-0.1 N MANUAL DIFF REQUIRED (test code = MDIFF) NO SCR MAMM BILATERAL ADAM CAD [id number] 13:47:55 - SCR MAMM BILATERAL ADAM CAD DIGITALBILATERAL DIGITAL SCREENING MAMMOGRAM 3D/2D WITH CAD: 01/01/2019CLINICAL: Asymptomatic. Digital breast tomosynthesis was performed in addition to routine CC and MLO views. Current mammographic images were evaluated by either a [employer] M-Vu or a [employer] ImageChecker CAD (computer aided detection system). Comparison is made to exams dated 01/05/2018 mammogram, mammogram, 01/15/2016 mammogram, 01/09/2014 mammogram, 01/14/2015 mammogram , and 01/08/2013 mammogram - [facility]-. There are scattered fib roglandular tissues in both breasts. There are benign vascular calcifications i n both breasts. There also are benign calcifications and an intramammary node i n the left breast. No suspicious mass, architectural distortion, malignant type calcification, or lymph node abnormality detected. Breast architecture is stab le compared to prior exams.IMPRESSION: BENIGNThere is no mammographic evidence o f malignancy. Resume annual screening mammography in one year. Jimmy jasso/penrad:01/01/2019 13:47:55 Rack Cleaner: Jacque BARRETT, [facility]-FWletter sent: BIRADS 1-2 Normal Mammogram BI-RADS: 2 Benign
--- NOTE | 2020-06-14 22:18 | Emergency Department Note ---
History of Present Illnes History of Present Illness Chief Complaint: Back Pain History of Present Illness This is a 60 year old female WITH H/O CHRONIC BACK PAIN PRESENTS WITH C/O LOWER BACK PAIN THAT STARTED SUDDENLY WHEN SHE STOOD UP OUT OF A CHAIR AT 1 PM. STATES GETTING WORSE AND NOW SHE CAN NOT WALK DUE TO PAIN IN HER LOWER BACK . Historian: Patient Arrival Mode: Car Onset (how long ago): hour(s) (8) Location: LOWER BACK Quality: PAIN Radiation: Reports non-radiation Severity: severe Onset quality: sudden Duration (how long): hour(s) (8) Timing of current episode: constant Progression: worsening Context: Denies recent illness, Denies recent surgery, Denies trauma/injury Relieving factors: none Exacerbating factors: movement Associated symptoms: Reports denies other symptoms Treatments prior to arrival: none Past Medical/Family History Physician Review I have reviewed the patient's past medical and family history. Any updates have been documented here. Past Medical History Recent Fever: No Clinical Suspicion of Infectio: No New/Unexplained Change in Ment: No Past Medical History: Hypertension, Diabetes, CHF, A-Fib, Hyperlipedemia Other Medical History: KIDNEY DISEASE, RHEMATOID ARTHRITIS, HTN, DM, LOW THYROID, GOUT, CATARACTS Past Surgical History: Cholecysctectomy Other Surgery: GALLBLADDER REMOVAL 2019, STENTS, CATARTACT SURGERY, Social History Smoking Cessation: Never Smoker Alcohol Use: None Any Illegal Drug Use: No Other Last Tetanus: UTD Review of Systems Review of Systems Constitutional: Reports no symptoms EENTM: Reports no symptoms Cardiovascular: Reports no symptoms Respiratory: Reports no symptoms Gastrointestinal: Reports no symptoms Genitourinary: Reports no symptoms Musculoskeletal: Reports as per HPI Integumentary: Reports no symptoms Neurological: Reports no symptoms Psychological: Reports no symptoms Endocrine: Reports no symptoms Hematological/Lymphatic: Reports no symptoms Physical Exam Related Data Allergies: Coded Allergies: No Known Allergies (Unverified , 04/17/20) Triage Vital Signs Vital Signs Date Time Temp Pulse Resp B/P (MAP) Pulse Ox O2 Delivery O2 Flow Rate FiO2 06/14/20 20:43 99.8 94 18 155/67 100 Room Air Vital signs reviewed: Yes Physical Exam CONSTITUTIONAL Constitutional: Present well-developed, Present well-nourished, Present distressed (MILD) HENT HENT: Present normocephalic, Present atraumatic, Present oropharynx clear/moist, Present nose normal HENT L/R: Present left ext ear normal, Present right ext ear normal EYES Eyes: Reports PERRL, Reports conjunctivae normal NECK Neck: Present ROM normal PULMONARY Pulmonary: Present effort normal, Present breath sounds normal CARDIOVASCULAR Cardiovascular: Present regular rhythm, Present heart sounds normal, Present capillary refill normal, Present normal rate GASTROINTESTINAL Abdominal: Present soft, Present nontender, Present bowel sounds normal GENITOURINARY Genitourinary: Present exam deferred SKIN Skin: Present warm, Present dry MUSCULOSKELETAL Musculoskeletal: Present tenderness (ACROSS ENTIRE LOWER BACK, ), Present other (PAIN WITH ROM) NEUROLOGICAL Neurological: Present alert, Present oriented x 3, Present no gross motor or sensory deficits PSYCHOLOGICAL Psychological: Present mood/affect normal, Present judgement normal Results Laboratory Laboratory Laboratory Tests Test 06/14/20 22:23 Urine Color Yellow (YELLOW) Urine Clarity Clear (CLEAR) Urine pH 7.5 (5 - 7) Urine Specific Buckley 1.020 (1.010-1.025) Urine Protein >=300 (NEGATIVE) Urine Glucose (UA) Negative (NEGATIVE) Urine Ketones Negative (NEGATIVE) Urine Blood Trace (NEGATIVE) Urine Nitrite Negative (NEGATIVE) Urine Bilirubin Negative (NEGATIVE) Urine Urobilinogen 1 mg/dL (0.2 - 1) Urine Leukocyte Esterase Negative (NEGATIVE) Urine RBC 11-20 /HPF (0-5) Urine WBC 6-10 /HPF (0-5) Urine Epithelial Cells Few /LPF (NONE) Urine Bacteria Many /HPF (NONE) Urine Coarse Granular Casts 1-5 (0) Urine Mucus Few (RARE) Lab results reviewed: Yes Imaging Imaging results reviewed: Yes Impressions umbar Spine Radiographs: 3 views HISTORY: Pain COMPARISON: CT dated 04/17/2020 DISCUSSION: Some of the osseous structures are partially obscured by stool and bowel gas. There are five non-rib bearing lumbar vertebral bodies. No displaced fracture or compression deformity is identified. Severe degenerative changes at L4-L5 and L5-S1 with grade 1 retrolisthesis of L5 in relation to L4. Severe L5-S1 facet arthropathy. Right upper quadrant surgical clips, likely related to cholecystectomy. Vascular classifications. Degenerative changes of bilateral SI joints. IMPRESSION: Severe degenerative changes at L4-L5 and L5-S1. Signed by: Dr. Jermain Tejeda MD on 06/14/2020 10:19 PM Dictated By: JERMAIN TEJEDA MD 18 Transcribed By: ROSSI on 06/14/202218 COPY TO: TONI MCLAUGHLIN MD~ Assessment & Plan Medical Decision Making MDM PT WITH CHRONIC BACK KARISHMA WITH ACUTE PAIN TO LOWER BACK, PT STATES MORPHINE IS WHAT SHE NORMALLY GETS WHEN SHE GOES TO HOSPITAL LUMBAR SPINE XRAY ORDERED TO EVAL FOR PATHOLOGIC FRACTURE UA ORDERED TO EVAL FOR UTI TORADOL 60 MG IM ORDERED NORFLEX 60 MG IM ORDERED NORCO 5/325 ONE PO ORDERED DISCHARGED HOME WITH TYLENOL #3 1 PO Q 6 HOURS PRN PAIN #20 FLEXERIL 10 MG ONE PO Q 8 HOURS PRN MUSCLE SPASM Reassessment Reassessment time: 23:55 Reassessment PT STILL WITH PAIN BUT STATES IT IS MUCH BETTER Assessment & Plan Final Impression: (1) Lumbar strain Depart Disposition: HOME, SELF-CARE Last Vital Signs Date Time Temp Pulse Resp B/P (MAP) Pulse Ox O2 Delivery O2 Flow Rate FiO2 06/14/20 20:43 99.8 94 18 155/67 100 Room Air Home Meds Reported Medications [Sulfurzynine] No Conflict Check, 500 MG PO BID 04/18/20 Prednisone (PREDNISONE) 5 Mg Tablet, 2.5 MG PO PRN for ARTHRITIS , #30 TAB 04/18/20 Furosemide (FUROSEMIDE) 20 Mg Tablet, 20 MG PO DAILY 04/18/20 Cyclobenzaprine Hcl (CYCLOBENZAPRINE HCL) 10 Mg Tablet, 10 MG PO DAILY, TAB 04/18/20 Clopidogrel Bisulfate (CLOPIDOGREL) 75 Mg Tablet, 75 MG PO DAILY, #30 TAB 04/18/20 Carvedilol (CARVEDILOL) 12.5 Mg Tablet, 25 MG PO DAILY, #60 TAB 04/18/20 Adalimumab (HUMIRA) 40 Mg/0.8 Ml Pen.ij.kit, 40 MG INJ Q 2 WK 04/18/20 Amlodipine Besylate (AMLODIPINE BESYLATE) 5 Mg Tablet, 5 MG PO DAILY, #30 TAB 04/18/20 Sodium Bicarbonate (SODIUM BICARBONATE) 650 Mg Tablet, 650 MG PO DAILY, #30 TAB 04/18/20 Metronidazole (METRONIDAZOLE) 500 Mg Tablet, 500 MG PO DAILY, TAB 04/18/20 Pramipexole Di-Hcl (PRAMIPEXOLE DIHYDROCHLORIDE) 0.25 Mg Tablet, 0.25 MG PO HS 04/18/20 Tizanidine Hcl (TIZANIDINE HCL) 4 Mg Capsule, 4 MG PO PRN PRN for MUSCLE RELAXER 04/18/20 Tramadol Hcl (ULTRAM) 50 Mg Tablet, 50 MG PO PRN, TAB 04/18/20 Atorvastatin Calcium (ATORVASTATIN CALCIUM) 20 Mg Tablet, 20 MG PO DAILY, #30 TAB 04/18/20 Glipizide (GLIPIZIDE) 5 Mg Tablet, 5 MG PO DAILY, TAB 04/18/20 Allopurinol (ALLOPURINOL) 100 Mg Tablet, 100 MG PO DAILY, #30 TAB 04/18/20 Levothyroxine Sodium (LEVOTHYROXINE SODIUM) 75 Mcg Tablet, 75 MCG PO DAILY, #30 TAB 04/18/20 Gabapentin (GABAPENTIN) 300 Mg Capsule, 300 MG PO DAILY, #60 CAP 04/18/20 Clopidogrel Bisulfate* (PLAVIX) 75 Mg Tablet, MG PO DAILY, #30 TAB 04/18/20 Medications in the ED Ketorolac Tromethamine 60 mg STK-MED ONCE .ROUTE ; Start 06/14/20 at 20:59; Stop 06/14/20 at 20:53; Status DC Acetaminophen/ Hydrocodone Bitart 1 ea STK-MED ONCE .ROUTE ; Start 06/14/20 at 21:00; Stop 06/14/20 at 20:54; Status DC Orphenadrine Citrate 60 mg STK-MED ONCE .ROUTE ; Start 06/14/20 at 21:00; Stop 06/14/20 at 20:54; Status DC Ketorolac Tromethamine 60 mg ONCE ONCE IM Last administered on 06/14/20at 21:05; Admin Dose 60 MG; Start 06/14/20 at 21:00; Stop 06/14/20 at 21:14; Status DC Orphenadrine Citrate 60 mg ONCE ONCE IM Last administered on 06/14/20at 21:05; Admin Dose 60 MG; Start 06/14/20 at 21:00; Stop 06/14/20 at 21:14; Status DC Acetaminophen/ Hydrocodone Bitart 1 ea ONCE ONCE PO Last administered on 06/14/20at 21:05; Admin Dose 1 EA; Start 06/14/20 at 21:00; Stop 06/14/20 at 21:14; Status DC TONI MCLAUGHLIN MD Jun 14, 2020 22:18
--- NOTE | 2020-06-14 22:22 | Diagnostic Imaging Report ---
Lumbar Spine Radiographs: 3 views HISTORY: Pain COMPARISON: CT dated 04/17/2020 DISCUSSION: Some of the osseous structures are partially obscured by stool and bowel gas. There are five non-rib bearing lumbar vertebral bodies. No displaced fracture or compression deformity is identified. Severe degenerative changes at L4-L5 and L5-S1 with grade 1 retrolisthesis of L5 in relation to L4. Severe L5-S1 facet arthropathy. Right upper quadrant surgical clips, likely related to cholecystectomy. Vascular classifications. Degenerative changes of bilateral SI joints. IMPRESSION: Severe degenerative changes at L4-L5 and L5-S1. Signed by: Dr. Jermain Tejeda MD on 06/14/2020 10:19 PM
[2020-06-14 22:34] LABS: CLARITY,URINE CLEAR (CLEAR); COLOR,URINE YELLOW (YELLOW)
[2020-06-14 22:35] LABS: BILIRUBIN,URINE NEGATIVE (NEGATIVE); KETONES,URINE NEGATIVE (NEGATIVE); LEUKOCYTE ESTERASE ,URINE NEGATIVE (NEGATIVE); NITRITE,URINE NEGATIVE (NEGATIVE); PROTEIN,URINE DIPSTICK >=300 (NEGATIVE); URINE UROBILINOGEN 1 mg/dL (0.2 - 1)
[2020-06-14 22:44] LABS: BACTERIA,URINE MANY /HPF; EPITHELIAL CELLS,URINE FEW /LPF; MUCUS,URINE FEW (RARE)
[2020-06-14 23:54] VITALS: BP 116/80
== END 2020-06-15 00:15 | disposition home or self-care (01) ==
LOC: ER 20:44
DX: S39.012A Strain of muscle, fascia and tendon of lower back, initial encounter (principal); X50.1XXA Overexertion from prolonged static or awkward postures, initial encounter; I10 Essential (primary) hypertension; E11.9 Type 2 diabetes mellitus without complications; E78.5 Hyperlipidemia, unspecified; I50.9 Heart failure, unspecified; I48.91 Unspecified atrial fibrillation; M06.9 Rheumatoid arthritis, unspecified
CPT/HCPCS: 72100; 81001; 99283; J1885; J2360

== ENCOUNTER → 2020-07-20 | Day surgery (SDC) | payer MEDICARE, OTHER ==
--- NOTE | 2020-07-16 16:53 | Diagnostic Imaging Report ---
EXAMINATION: CHEST 2 VIEWS INDICATION: Pre-operative COMPARISON: None FINDINGS: LINES/TUBES:Right IJ tunneled hemodialysis catheter terminates in the SVC. LUNGS:The lungs are well-inflated. No focal consolidation or pulmonary edema. PLEURA:No pleural effusion or pneumothorax. MEDIASTINUM:The cardiomediastinal silhouette appears normal in size and shape. BONES/SOFT TISSUES:No acute osseous injury. ABDOMEN:No free air under the diaphragm. IMPRESSION: No focal pneumonia or pulmonary edema. Signed by: Maynor Aragon MD on 07/16/2020 4:50 PM
[~2020-07-20] MED LIST changes: +BUPIVACAINE HCL 0.5% INJ 30 ML VIAL INJ ONE; +EPHEDRINE SULFATE INJ 50 MG/ML VIAL ONE; +FENTANYL CITRATE/PF 100MCG/2 ML INJ ONE; +HEPARIN SOD (PORCINE) 1000 UNIT/ML 30ML ONE; +HEPARIN SOD (PORCINE) 5,000 UNIT/ML VIAL ONE; +LIDOCAINE HCL 2% LOCAL INJ 5 ML SDV VIAL INJ ONE; +MIDAZOLAM HCL 2 MG/2 ML VIAL ONE; +ONDANSETRON HCL INJ 2MG/ML 2ML 2 MG/ML VIAL ONE; +PROPOFOL IV EMULSION 10 MG/ML 20 ML VIAL ONE; +PROTAMINE SULFATE 10 MG/ML 5 ML VIAL ONE; +SEVOFLURANE INHAL SOLN 250 ML PEN BTL ONE; +SODIUM CHLORIDE 0.9% 500ML 500 ML ONE; +THROMBIN FOR SOLN 5,000 UNIT VIAL ONE; +TYLENOL # 31 EA PO; +VANCOMYCIN 1GM/NS 250 ML 250 ML ONE
[2020-07-20 11:32] LABS: BASOPHILS # (AUTO) 0.1 (0.0-0.1); BASOPHILS % 1.3 % (0.0-1.0); EOSINOPHILS # (AUTO) 0.3 (0.0-0.4); EOSINOPHILS % 6.3 % (0.0-6.0); HEMATOCRIT 32.8 % (34.2-44.1); HEMOGLOBIN 10.6 g/dL (12.0-16.0); LYMPHOCYTES # (AUTO) 1.8 (1.0-3.2); LYMPHOCYTES % 38.7 % (18.0-39.1); MEAN CORPUSCULAR HEMOGLOBIN 31.7 pg (28-32); MEAN CORPUSCULAR HGB CONC 32.3 g/dL (31-35); MEAN CORPUSCULAR VOLUME 98.2 fL (81-99); MONOCYTES # (AUTO) 0.5 (0.2-0.8); MONOCYTES % 9.9 % (4.4-11.3); NEUTROPHILS # (AUTO) 2.1 (2.1-6.9); NEUTROPHILS % 43.8 % (38.7-80.0); PLATELET COUNT 156 x10e3/uL (140-360); RED BLOOD COUNT 3.34 x10e6/uL (3.6-5.1)
[2020-07-20 11:44] LABS: INR 1.01; PROTHROMBIN TIME 13.8 seconds (11.9-14.5)
[2020-07-20 11:45] LABS: PARTIAL THROMBOPLASTIN TIME 34.5 seconds (23.8-35.5)
[2020-07-20 11:51] LABS: ANION GAP 14.1 mmol/L (8-16); CALCIUM 8.4 mg/dL (8.4-10.2); CREATININE, SERUM 4.14 mg/dL (0.57-1.11); POTASSIUM 3.1 mmol/L (3.5-5.1)
[2020-07-20 16:40] VITALS: BP 146/74
--- NOTE | 2020-07-20 18:44 | Operative Report ---
DATE OF PROCEDURE: 07/20/2020 SURGEON: Edgar Hamlin MD PREOPERATIVE DIAGNOSES: End-stage renal disease, hypertension, non insulin-dependent diabetes. POSTOPERATIVE DIAGNOSES: End-stage renal disease, hypertension, non insulin-dependent diabetes. OPERATIVE PROCEDURE: Left brachial artery to cephalic vein AV fistula with transposition of cephalic vein. VETERINARIAN SMALL ANIMAL: Nursing. ANESTHESIA: General endotracheal. INDICATIONS: A 60-year-old lady with non-insulin diabetes, hypertension, and end-stage renal failure, who requires permanent dialysis access. Preoperative noninvasive mapping suggested that a left upper extremity fistula would be her best option. Prior to surgery, I described the operation to her. I told her that the risks of surgery would include , bleeding, infection, heart attack, stroke, pneumonia, prolonged ICU stay, mechanical ventilation, tracheostomy, permanent hand/limb muscle or nerve damage, hand/limb chronic pain, hand/limb amputation, a 10% to 15% chance of the fistula might not mature appropriately and require subsequent revision, further surgery, replacement, etc. The patient came to the holding area by herself because of the COVID-[place] restrictions. She stated that she understood, no further question, and wanted to proceed. FINDINGS: Uneventful creation of left brachial artery to cephalic vein asepsis. Excellent thrill and bruit at conclusion of surgery. Outflow vein was of good caliber and quality. Radial artery pulse had a strong Doppler signal both prior to and at completion of surgery. DESCRIPTION OF PROCEDURE: The patient was taken to the operating room on July 20, 2020, and placed supine upon the operating room table. General endotracheal anesthesia was smoothly induced. The left upper extremity was sterilely prepped and draped in the usual fashion using alcohol prewash and Betadine scrub and solution. A longitudinal incision was made distal to the antebrachial crease. The cephalic vein was dissected from its surrounding tissues, isolated and controlled. The median antecubital vein was divided. The perforating vein was similarly divided and spatulated. Radial, brachial, and ulnar arteries were isolated and controlled at the same level. The patient was systemically heparinized using 1 mg/kg intravenously. The proximal valve in the cephalic vein was disrupted. Brachial, radial, and ulnar arteries were occluded. Longitudinal arteriotomy was created in the brachial artery. Excellent arterial inflow and backbleeding. An end-to-side anastomosis perforating vein to the brachial artery was performed using a running 7-0 Prolene with knots done in two locations to prevent for straining. Prior to completing the anastomosis, a 2.0 mm dilator easily proximally and distally into the brachial, radial, and ulnar arteries. A 3.5 mm dilator passed easily into the outflow vein. The anastomosis was completed uneventfully. Occluding instruments were removed. The fistula filled promptly. There was an excellent palpable thrill and a strong Doppler signal in the outflow vein both in the upper arm and in the forearm. A half dose of protamine was used to reverse the systemic heparin that had been given a dose of 1 mg/kg intravenously. There was excellent hemostasis. Local anesthesia was infiltrated into the tissues. The wound was closed in layers using absorbable suture. Sterile dressings were applied. Sponge, instrument, and needle counts were correct both prior to and after wound closure. Independent search of the operative field by the both operating surgeons and nurse revealed no retained instruments or sponges. The patient tolerated the procedure well, was taken to recovery area in stable condition. MD BARB Carrero/RICCIL /[id number]
== END | disposition home or self-care (01) ==
LOC: OR 10:36
PROVIDERS: ATTEND Surgery
DX: E11.22 Type 2 diabetes mellitus with diabetic chronic kidney disease (principal); I12.0 Hypertensive chronic kidney disease with stage 5 chronic kidney disease or end stage renal disease; N18.6 End stage renal disease; Z99.2 Dependence on renal dialysis; I25.2 Old myocardial infarction; I25.10 Atherosclerotic heart disease of native coronary artery without angina pectoris; E78.5 Hyperlipidemia, unspecified; E03.9 Hypothyroidism, unspecified; M46.90 Unspecified inflammatory spondylopathy, site unspecified; Z01.812 Encounter for preprocedural laboratory examination; Z01.818 Encounter for other preprocedural examination; Z11.59 Encounter for screening for other viral diseases; Z79.02 Long term (current) use of antithrombotics/antiplatelets; Z79.84 Long term (current) use of oral hypoglycemic drugs
CPT/HCPCS: 36415; 36818; 71046; 80048; 82948; 85025; 85610; 85730; C1713; J1644; J2001; J2250; J2405; J2704; J2720; J3010; J3370; J7040; U0002

== ENCOUNTER → 2020-07-22 | Day surgery (SDC) | payer MEDICARE, OTHER ==
[~2020-07-22] MED LIST changes: +ACETAMINOPHEN/CODEINE 300MG - 30MG TAB ONE; +CEFAZOLIN SOD 1 GM/NS 50ML 100 ML IV ONE; +DEXAMETHASONE SOD PHOS INJ 4 MG/ML VIAL ONE; -EPHEDRINE SULFATE INJ 50 MG/ML VIAL ONE; -HEPARIN SOD (PORCINE) 1000 UNIT/ML 30ML ONE; -HEPARIN SOD (PORCINE) 5,000 UNIT/ML VIAL ONE; +HYDROMORPHONE 1MG/1ML INJ ONE; -MIDAZOLAM HCL 2 MG/2 ML VIAL ONE; +MORPHINE SULFATE INJ 10 MG/ML ONE; -PROTAMINE SULFATE 10 MG/ML 5 ML VIAL ONE; -THROMBIN FOR SOLN 5,000 UNIT VIAL ONE; -VANCOMYCIN 1GM/NS 250 ML 250 ML ONE
[2020-07-22 16:10] VITALS: BP 160/81
== END | disposition home or self-care (01) ==
LOC: OR 08:31
PROVIDERS: ATTEND Specialist
DX: S52.551A Other extraarticular fracture of lower end of right radius, initial encounter for closed fracture (principal); E11.22 Type 2 diabetes mellitus with diabetic chronic kidney disease; I12.0 Hypertensive chronic kidney disease with stage 5 chronic kidney disease or end stage renal disease; N18.6 End stage renal disease; Z79.02 Long term (current) use of antithrombotics/antiplatelets; Z79.84 Long term (current) use of oral hypoglycemic drugs; Z68.34 Body mass index [BMI] 34.0-34.9, adult; W01.198A Fall on same level from slipping, tripping and stumbling with subsequent striking against other object, initial encounter; Y92.89 Other specified places as the place of occurrence of the external cause; Z86.718 Personal history of other venous thrombosis and embolism; Z99.2 Dependence on renal dialysis
CPT/HCPCS: 25607; 36415; 82948; 84132; C1713 ×3; J0690; J1100; J1170; J2001; J2270; J2405; J2704; J3010; J7040; 76000

== ENCOUNTER 2020-09-16 16:02 | Outpatient (RCR) | payer MEDICARE ==
[~2020-09-16 16:02] MED LIST changes: -ACETAMINOPHEN/CODEINE 300MG - 30MG TAB ONE; -BUPIVACAINE HCL 0.5% INJ 30 ML VIAL INJ ONE; -CEFAZOLIN SOD 1 GM/NS 50ML 100 ML IV ONE; -DEXAMETHASONE SOD PHOS INJ 4 MG/ML VIAL ONE; -FENTANYL CITRATE/PF 100MCG/2 ML INJ ONE; -HYDROMORPHONE 1MG/1ML INJ ONE; -LIDOCAINE HCL 2% LOCAL INJ 5 ML SDV VIAL INJ ONE; -MORPHINE SULFATE INJ 10 MG/ML ONE; -ONDANSETRON HCL INJ 2MG/ML 2ML 2 MG/ML VIAL ONE; -PROPOFOL IV EMULSION 10 MG/ML 20 ML VIAL ONE; -SEVOFLURANE INHAL SOLN 250 ML PEN BTL ONE; -SODIUM CHLORIDE 0.9% 500ML 500 ML ONE
== END 2020-09-28 ==
LOC: OT 16:02
PROVIDERS: ATTEND Specialist
DX: S52.501D Unspecified fracture of the lower end of right radius, subsequent encounter for closed fracture with routine healing (principal); M25.531 Pain in right wrist; M25.631 Stiffness of right wrist, not elsewhere classified; R53.1 Weakness

== ENCOUNTER 2021-06-05 10:05 | Emergency (ER) | payer MEDICARE ==
[~2021-06-05] VITALS: Ht 149.9 cm; Wt 94.3 kg
[2021-06-05 11:04] LABS: BASOPHILS % 0.6 % (0.0-1.0); HEMATOCRIT 37.1 % (34.2-44.1); HEMOGLOBIN 12.3 g/dL (12.0-16.0); LYMPHOCYTES # (AUTO) 0.9 (1.0-3.2); LYMPHOCYTES % 24.5 % (18.0-39.1); MEAN CORPUSCULAR HEMOGLOBIN 35.5 pg (28-32); MEAN CORPUSCULAR HGB CONC 33.2 g/dL (31-35); MEAN CORPUSCULAR VOLUME 107.2 fL (81-99); MONOCYTES # (AUTO) 0.3 (0.2-0.8); MONOCYTES % 8.8 % (4.4-11.3); NEUTROPHILS # (AUTO) 2.4 (2.1-6.9); NEUTROPHILS % 65.8 % (38.7-80.0); PLATELET COUNT 66 x10e3/uL (140-360); RED BLOOD COUNT 3.46 x10e6/uL (3.6-5.1); RED CELL DISTRIBUTION WIDTH 15.1 % (11.7-14.4)
[2021-06-05 11:18] LABS: INR 0.93; PROTHROMBIN TIME 12.7 seconds (11.9-14.5)
[2021-06-05 11:19] LABS: PARTIAL THROMBOPLASTIN TIME 40.5 seconds (23.8-35.5)
[2021-06-05 11:25] LABS: ALBUMIN 3.1 g/dL (3.5-5.0); ALBUMIN/GLOBULIN RATIO 0.6 (0.8-2.0); ANION GAP 17.3 mmol/L (8-16); CALCIUM 7.5 mg/dL (8.4-10.2); CREATININE, SERUM 5.31 mg/dL (0.57-1.11); POTASSIUM 4.3 mmol/L (3.5-5.1)
[2021-06-05 11:31] LABS: CREATINE KINASE MB 0.6 ng/mL (0-5.0)
[2021-06-05] MEDS ORDERED: CASIRIVIMAB/IMDEVIMAB 10 ML in SODIUM CHLORIDE 0.9% 100 ML IV ONE (12:45)
== END 2021-06-05 14:50 | disposition home or self-care (01) ==
LOC: ER 10:35
DX: R50.9 Fever, unspecified (principal); R05 Cough; U07.1 COVID-19; I12.0 Hypertensive chronic kidney disease with stage 5 chronic kidney disease or end stage renal disease; E11.22 Type 2 diabetes mellitus with diabetic chronic kidney disease; N18.6 End stage renal disease; E78.5 Hyperlipidemia, unspecified; I50.9 Heart failure, unspecified; I48.91 Unspecified atrial fibrillation
CPT/HCPCS: 36415; 71045; 80053; 82550; 82553; 83880; 84484; 85025; 85610; 85730; 87040; 93005; 99284; J7050; U0002

== ENCOUNTER 2021-06-06 23:14 | Emergency (ER) | payer MEDICARE ==
[~2021-06-06] VITALS: Ht 149.9 cm; Wt 94.3 kg
[2021-06-06] MEDS ORDERED: DEXTROSE 50% SYRINGE 50 ML IV STA (23:24)
[2021-06-06] MEDS ORDERED: CEFTRIAXONE 2 GM in SODIUM CHLORIDE 0.9% 100 ML IV SCH (23:30)
[2021-06-06] MEDS ORDERED: ACETAMINOPHEN 325 MG TAB PO ONE (23:30)
[2021-06-06] MEDS ORDERED: DEXAMETHASONE SOD PHOS 10 MG/1 ML VIAL IV SCH (23:30)
[2021-06-07 00:24] LABS: ALBUMIN/GLOBULIN RATIO 0.5 (0.8-2.0); ANION GAP 19.6 mmol/L (8-16); CALCIUM 8.2 mg/dL (8.4-10.2); CREATININE, SERUM 7.46 mg/dL (0.57-1.11); POTASSIUM 4.6 mmol/L (3.5-5.1)
[2021-06-07 00:46] LABS: CREATINE KINASE MB 1.2 ng/mL (0-5.0)
[2021-06-07 00:49] LABS: BASOPHILS % 0.4 % (0.0-1.0); HEMOGLOBIN 12.1 g/dL (12.0-16.0); LYMPHOCYTES # (AUTO) 1.1 (1.0-3.2); LYMPHOCYTES % 22.4 % (18.0-39.1); MEAN CORPUSCULAR HEMOGLOBIN 35.1 pg (28-32); MEAN CORPUSCULAR HGB CONC 32.7 g/dL (31-35); MEAN CORPUSCULAR VOLUME 107.2 fL (81-99); MONOCYTES # (AUTO) 0.4 (0.2-0.8); MONOCYTES % 8.1 % (4.4-11.3); NEUTROPHILS # (AUTO) 3.4 (2.1-6.9); NEUTROPHILS % 68.7 % (38.7-80.0); PLATELET COUNT 86 x10e3/uL (140-360); RED BLOOD COUNT 3.45 x10e6/uL (3.6-5.1); RED CELL DISTRIBUTION WIDTH 15.4 % (11.7-14.4)
[2021-06-07] MEDS ORDERED: ONDANSETRON HCL INJ 2MG/ML 2ML 2 MG/ML VIAL IV STA (01:34)
[2021-06-07] MEDS ORDERED: ZINC SULFATE 220 MG CAP PO SCH (09:00)
[2021-06-07] MEDS ORDERED: ASCORBIC ACID 500 MG TAB PO SCH (09:00)
== END 2021-06-07 02:59 | disposition home or self-care (01) ==
LOC: ER 23:23
DX: E11.649 Type 2 diabetes mellitus with hypoglycemia without coma (principal); E11.22 Type 2 diabetes mellitus with diabetic chronic kidney disease; I13.2 Hypertensive heart and chronic kidney disease with heart failure and with stage 5 chronic kidney disease, or end stage renal disease; I50.9 Heart failure, unspecified; N18.6 End stage renal disease; Z99.2 Dependence on renal dialysis; Z79.4 Long term (current) use of insulin
CPT/HCPCS: 36415; 71045; 80053; 82550; 82553; 82948; 83880; 84484; 85025; 87040; 99284; C9113; J2405; J7799

== ENCOUNTER 2021-06-08 21:46 | Inpatient (IN) | payer MEDICARE, OTHER ==
[~2021-06-08] VITALS: Ht 149.9 cm; Wt 85.7 kg
[2021-06-08] MEDS ORDERED: DEXAMETHASONE SOD PHOS 10 MG/1 ML VIAL IV ONE (23:15)
[2021-06-08] MEDS ORDERED: KETOROLAC TROMETHAMINE 30 MG/ML VIAL IV STA (23:27)
[2021-06-08] MEDS ORDERED: ACETAMINOPHEN 325 MG TAB PO ONE (23:30)
[2021-06-09 00:56] LABS: BASOPHILS % 0.3 % (0.0-1.0); HEMATOCRIT 36.4 % (34.2-44.1); HEMOGLOBIN 11.9 g/dL (12.0-16.0); LYMPHOCYTES # (AUTO) 0.7 (1.0-3.2); LYMPHOCYTES % 9.5 % (18.0-39.1); MEAN CORPUSCULAR HEMOGLOBIN 34.5 pg (28-32); MEAN CORPUSCULAR HGB CONC 32.7 g/dL (31-35); MEAN CORPUSCULAR VOLUME 105.5 fL (81-99); MONOCYTES # (AUTO) 0.5 (0.2-0.8); MONOCYTES % 6.8 % (4.4-11.3); NEUTROPHILS # (AUTO) 6.2 (2.1-6.9); NEUTROPHILS % 82.9 % (38.7-80.0); PLATELET COUNT 107 x10e3/uL (140-360); RED BLOOD COUNT 3.45 x10e6/uL (3.6-5.1); RED CELL DISTRIBUTION WIDTH 15.1 % (11.7-14.4)
[2021-06-09 01:09] LABS: ANION GAP 18.7 mmol/L (8-16); CALCIUM 8.5 mg/dL (8.4-10.2); CREATININE, SERUM 3.68 mg/dL (0.57-1.11); POTASSIUM 3.7 mmol/L (3.5-5.1)
[2021-06-09 07:02] LABS: ANION GAP 18.8 mmol/L (8-16); CREATININE, SERUM 4.4 mg/dL (0.57-1.11); POTASSIUM 3.8 mmol/L (3.5-5.1)
[2021-06-09 07:30] LABS: BASOPHILS % 0.3 % (0.0-1.0); HEMATOCRIT 36.4 % (34.2-44.1); HEMOGLOBIN 11.9 g/dL (12.0-16.0); LYMPHOCYTES # (AUTO) 0.7 (1.0-3.2); LYMPHOCYTES % 8.4 % (18.0-39.1); MEAN CORPUSCULAR HEMOGLOBIN 34.7 pg (28-32); MEAN CORPUSCULAR HGB CONC 32.7 g/dL (31-35); MEAN CORPUSCULAR VOLUME 106.1 fL (81-99); MONOCYTES # (AUTO) 0.4 (0.2-0.8); MONOCYTES % 4.7 % (4.4-11.3); NEUTROPHILS # (AUTO) 6.8 (2.1-6.9); PLATELET COUNT 125 x10e3/uL (140-360); RED BLOOD COUNT 3.43 x10e6/uL (3.6-5.1); RED CELL DISTRIBUTION WIDTH 15.1 % (11.7-14.4)
[2021-06-09] MEDS ORDERED: DEXTROSE 50% SYRINGE 50 ML IV PRN (07:45)
[2021-06-09] MEDS ORDERED: ONDANSETRON HCL INJ 2MG/ML 2ML 2 MG/ML VIAL IV PRN (07:45)
[2021-06-09 08:17] LABS: BAND NEUTROPHILS % (MANUAL) 3 %; LYMPHOCYTES % (MANUAL) 10 % (19-48); MONOCYTES % (MANUAL) 1 % (3.4-9.0); NEUTROPHILS % (MANUAL) 86 % (40-74)
[2021-06-09 08:18] LABS: PLATELET ESTIMATE SLIGHTLY DECREASED; PLATELET MORPHOLOGY COMMENT FEW LARGE; RBC MORPHOLOGY COMMENT ABNORMAL
[2021-06-09] MEDS: LEVOTHYROXINE SODIUM 112 MCG TAB PO SCH (08:30)
[2021-06-09] MEDS ORDERED: ATORVASTATIN 20 MG TAB PO SCH (09:00)
[2021-06-09] MEDS ORDERED: AMLODIPINE BESYLATE 5 MG TAB PO SCH (09:00)
[2021-06-09] MEDS ORDERED: TIZANIDINE HCL 4 MG TAB PO PRN (09:15)
[2021-06-09] MEDS: ASCORBIC ACID 500 MG TAB PO SCH ×2 (09:49→17:30)
[2021-06-09] MEDS: CEFTRIAXONE 1 GM in SODIUM CHLORIDE 0.9% 50ML 50 ML IV SCH (09:49)
[2021-06-09] MEDS: ALLOPURINOL 100 MG TAB PO SCH (09:49)
[2021-06-09] MEDS: CLOPIDOGREL BISULFATE 75 MG TAB PO SCH (09:49)
[2021-06-09] MEDS: INSULIN REGULAR, HUMAN 100 UNIT/1 ML SQ SCH ×3 (12:10→20:54)
[2021-06-09] MEDS: HEPARIN SOD (PORCINE) 5,000 UNIT/ML VIAL SC SCH ×2 (12:58→21:55)
[2021-06-09] MEDS ORDERED: REMDESIVIR 200MG/NS 100ML 200 MG in SODIUM CHLORIDE 0.9% 100 ML 100 ML IV ONE (15:00)
[2021-06-09 16:00] VITALS: BP 112/65
[2021-06-09 16:20] VITALS: BP 112/65
[2021-06-09] MEDS: CARVEDILOL 12.5 MG TAB PO SCH (17:00)
[2021-06-09] MEDS: GABAPENTIN 300 MG CAP PO SCH (17:30)
[2021-06-09] MEDS ORDERED: SODIUM CHLORIDE 0.9% 250ML 250 ML ONE (17:47)
[2021-06-09 20:00] VITALS: BP 113/42
[2021-06-09] MEDS ORDERED: ZOLPIDEM TARTRATE 5 MG TAB PO PRN (21:00)
[2021-06-09] MEDS: ATORVASTATIN 20 MG TAB PO SCH (21:55)
[2021-06-09] MEDS: PRAMIPEXOLE DIHYDROCHLORIDE 0.25 MG TAB PO SCH (21:55)
[2021-06-09] MEDS: DEXAMETHASONE SOD PHOS 10 MG/1 ML VIAL IV SCH (23:27)
[2021-06-10] VITALS (7 sets, daily range): BP systolic 90–137; BP diastolic 35–64
[2021-06-10] MEDS: ATORVASTATIN 20 MG TAB PO SCH (01:10)
[2021-06-10] MEDS: PRAMIPEXOLE DIHYDROCHLORIDE 0.25 MG TAB PO SCH (01:10)
[2021-06-10 04:55] LABS: BASOPHILS % 0.3 % (0.0-1.0); EOSINOPHILS % 0.1 % (0.0-6.0); HEMATOCRIT 33.8 % (34.2-44.1); LYMPHOCYTES # (AUTO) 0.6 (1.0-3.2); LYMPHOCYTES % 8.8 % (18.0-39.1); MEAN CORPUSCULAR HEMOGLOBIN 34.5 pg (28-32); MEAN CORPUSCULAR HGB CONC 32.5 g/dL (31-35); MONOCYTES # (AUTO) 0.3 (0.2-0.8); MONOCYTES % 4.7 % (4.4-11.3); NEUTROPHILS # (AUTO) 6.1 (2.1-6.9); NEUTROPHILS % 85.5 % (38.7-80.0); PLATELET COUNT 132 x10e3/uL (140-360); RED BLOOD COUNT 3.19 x10e6/uL (3.6-5.1)
[2021-06-10 05:21] LABS: ALBUMIN 2.3 g/dL (3.5-5.0); ALBUMIN/GLOBULIN RATIO 0.5 (0.8-2.0); ANION GAP 20.1 mmol/L (8-16); CALCIUM 7.5 mg/dL (8.4-10.2); CREATININE, SERUM 5.86 mg/dL (0.57-1.11); POTASSIUM 4.1 mmol/L (3.5-5.1)
[2021-06-10] MEDS: LEVOTHYROXINE SODIUM 112 MCG TAB PO SCH (05:28)
[2021-06-10] MEDS: ACETAMINOPHEN 325 MG TAB PO PRN ×2 (06:14→22:45)
[2021-06-10] MEDS: INSULIN REGULAR, HUMAN 100 UNIT/1 ML SQ SCH ×4 (07:30→21:00)
[2021-06-10] MEDS: CEFTRIAXONE 1 GM in SODIUM CHLORIDE 0.9% 50ML 50 ML IV SCH (08:15)
[2021-06-10] MEDS: CARVEDILOL 12.5 MG TAB PO SCH ×2 (09:00→17:00)
[2021-06-10] MEDS: HEPARIN SOD (PORCINE) 5,000 UNIT/ML VIAL SC SCH (09:00)
[2021-06-10] MEDS: ASCORBIC ACID 500 MG TAB PO SCH ×2 (09:34→17:28)
[2021-06-10] MEDS: CLOPIDOGREL BISULFATE 75 MG TAB PO SCH (09:34)
[2021-06-10] MEDS: GABAPENTIN 300 MG CAP PO SCH ×2 (09:34→17:28)
[2021-06-10] MEDS: ALLOPURINOL 100 MG TAB PO SCH (09:34)
[2021-06-10] MEDS: DEXAMETHASONE SOD PHOS 10 MG/1 ML VIAL IV SCH (09:34)
[2021-06-10] MEDS: REMDESIVIR 100MG/NS 100ML 100 MG in SODIUM CHLORIDE 0.9% 100 ML 100 ML IV SCH (14:00)
[2021-06-10] MEDS ORDERED: SODIUM CHLORIDE 0.9% 1000ML 1,000 ML ONE (20:40)
[2021-06-10] MEDS ORDERED: ALBUMIN 25% 12.5GM 0.25 GM/ML BTL IV PRN (21:45)
[2021-06-10] MEDS ORDERED: MANNITOL 25% 12.5GM/50 ML VIAL IV PRN (21:45)
[2021-06-11] VITALS (8 sets, daily range): BP systolic 109–136; BP diastolic 49–61
[2021-06-11] MEDS: HEPARIN SOD (PORCINE) 5,000 UNIT/ML VIAL SC SCH ×3 (01:10→20:40)
[2021-06-11] MEDS: LEVOTHYROXINE SODIUM 112 MCG TAB PO SCH (06:04)
[2021-06-11] MEDS: INSULIN REGULAR, HUMAN 100 UNIT/1 ML SQ SCH ×4 (07:30→20:40)
[2021-06-11] MEDS: CEFTRIAXONE 1 GM in SODIUM CHLORIDE 0.9% 50ML 50 ML IV SCH (09:00)
[2021-06-11] MEDS: DEXAMETHASONE SOD PHOS 10 MG/1 ML VIAL IV SCH (09:00)
[2021-06-11] MEDS: ASCORBIC ACID 500 MG TAB PO SCH ×2 (09:01→17:03)
[2021-06-11] MEDS: CLOPIDOGREL BISULFATE 75 MG TAB PO SCH (09:01)
[2021-06-11] MEDS: GABAPENTIN 300 MG CAP PO SCH ×2 (09:01→17:03)
[2021-06-11] MEDS: ALLOPURINOL 100 MG TAB PO SCH (09:01)
[2021-06-11] MEDS: CARVEDILOL 12.5 MG TAB PO SCH ×2 (09:02→17:03)
[2021-06-11] MEDS: REMDESIVIR 100MG/NS 100ML 100 MG in SODIUM CHLORIDE 0.9% 100 ML 100 ML IV SCH (13:00)
[2021-06-11] MEDS ORDERED: SULFASALAZINE500 MG PO (17:37)
[2021-06-11] MEDS ORDERED: HUMIRA(CF)40 MG/0.1 SQ (17:42)
[2021-06-11] MEDS ORDERED: OMEPRAZOLE40 MG PO (17:44)
[2021-06-11] MEDS: PRAMIPEXOLE DIHYDROCHLORIDE 0.25 MG TAB PO SCH (20:40)
[2021-06-11] MEDS: ATORVASTATIN 20 MG TAB PO SCH (20:40)
[2021-06-12] VITALS (8 sets, daily range): BP systolic 101–135; BP diastolic 52–90
[2021-06-12] MEDS: LEVOTHYROXINE SODIUM 112 MCG TAB PO SCH (06:00)
[2021-06-12] MEDS: INSULIN REGULAR, HUMAN 100 UNIT/1 ML SQ SCH ×3 (07:30→17:33)
[2021-06-12] MEDS: HEPARIN SOD (PORCINE) 5,000 UNIT/ML VIAL SC SCH (09:00)
[2021-06-12] MEDS: CARVEDILOL 12.5 MG TAB PO SCH ×2 (09:00→17:00)
[2021-06-12] MEDS: CEFTRIAXONE 1 GM in SODIUM CHLORIDE 0.9% 50ML 50 ML IV SCH (09:22)
[2021-06-12] MEDS: DEXAMETHASONE SOD PHOS 10 MG/1 ML VIAL IV SCH (09:22)
[2021-06-12] MEDS: ALLOPURINOL 100 MG TAB PO SCH (09:24)
[2021-06-12] MEDS: GABAPENTIN 300 MG CAP PO SCH ×2 (09:24→17:34)
[2021-06-12] MEDS: ASCORBIC ACID 500 MG TAB PO SCH ×2 (09:24→17:34)
[2021-06-12] MEDS: CLOPIDOGREL BISULFATE 75 MG TAB PO SCH (09:24)
[2021-06-12] MEDS: REMDESIVIR 100MG/NS 100ML 100 MG in SODIUM CHLORIDE 0.9% 100 ML 100 ML IV SCH (14:23)
[2021-06-12] MEDS ORDERED: SODIUM CHLORIDE 0.9% 1000ML 1,000 ML ONE (18:30)
[2021-06-12] MEDS: ACETAMINOPHEN 325 MG TAB PO PRN (21:38)
[2021-06-12] MEDS: PRAMIPEXOLE DIHYDROCHLORIDE 0.25 MG TAB PO SCH (21:38)
[2021-06-12] MEDS: ATORVASTATIN 20 MG TAB PO SCH (21:38)
[2021-06-13] VITALS (8 sets, daily range): BP systolic 120–135; BP diastolic 48–63
[2021-06-13] MEDS: HEPARIN SOD (PORCINE) 5,000 UNIT/ML VIAL SC SCH ×3 (01:14→21:55)
[2021-06-13] MEDS: INSULIN REGULAR, HUMAN 100 UNIT/1 ML SQ SCH ×5 (01:15→21:55)
[2021-06-13] MEDS: LEVOTHYROXINE SODIUM 112 MCG TAB PO SCH (05:23)
[2021-06-13] MEDS: DEXAMETHASONE SOD PHOS 10 MG/1 ML VIAL IV SCH (10:30)
[2021-06-13] MEDS: CARVEDILOL 12.5 MG TAB PO SCH ×2 (10:31→15:51)
[2021-06-13] MEDS: ALLOPURINOL 100 MG TAB PO SCH (10:31)
[2021-06-13] MEDS: GABAPENTIN 300 MG CAP PO SCH ×2 (10:31→15:51)
[2021-06-13] MEDS: CLOPIDOGREL BISULFATE 75 MG TAB PO SCH (10:31)
[2021-06-13] MEDS: ASCORBIC ACID 500 MG TAB PO SCH ×2 (10:31→15:51)
[2021-06-13] MEDS: REMDESIVIR 100MG/NS 100ML 100 MG in SODIUM CHLORIDE 0.9% 100 ML 100 ML IV SCH (14:25)
[2021-06-13] MEDS: PRAMIPEXOLE DIHYDROCHLORIDE 0.25 MG TAB PO SCH (21:53)
[2021-06-13] MEDS: ATORVASTATIN 20 MG TAB PO SCH (21:53)
[2021-06-14] VITALS: BP 129/62
[2021-06-14 04:00] VITALS: BP 112/53
[2021-06-14] MEDS: LEVOTHYROXINE SODIUM 112 MCG TAB PO SCH (06:30)
[2021-06-14] MEDS: INSULIN REGULAR, HUMAN 100 UNIT/1 ML SQ SCH ×3 (07:30→17:22)
[2021-06-14 08:09] VITALS: BP 131/58
[2021-06-14 08:12] VITALS: BP 131/58
[2021-06-14] MEDS: HEPARIN SOD (PORCINE) 5,000 UNIT/ML VIAL SC SCH (08:45)
[2021-06-14] MEDS: DEXAMETHASONE SOD PHOS 10 MG/1 ML VIAL IV SCH (08:56)
[2021-06-14] MEDS: ASCORBIC ACID 500 MG TAB PO SCH ×2 (08:57→16:49)
[2021-06-14] MEDS: ALLOPURINOL 100 MG TAB PO SCH (08:57)
[2021-06-14] MEDS: GABAPENTIN 300 MG CAP PO SCH ×2 (08:57→16:49)
[2021-06-14] MEDS: CLOPIDOGREL BISULFATE 75 MG TAB PO SCH (08:57)
[2021-06-14] MEDS: CARVEDILOL 12.5 MG TAB PO SCH ×2 (08:57→16:48)
[2021-06-14] MEDS ORDERED: BISACODYL 5 MG TAB EC PO PRN (09:00)
[2021-06-14] MEDS ORDERED: BISACODYL 10 MG SUPP PR PRN (09:00)
[2021-06-14] MEDS ORDERED: LACTULOSE SYRUP 20 GM/30 ML UDC PO PRN (09:00)
[2021-06-14] MEDS ORDERED: BISACODYL 5 MG TAB EC PO ONE (09:30)
[2021-06-14] MEDS: SENNA-S TABLET PO SCH ×2 (09:44→16:49)
[2021-06-14] MEDS ORDERED: ONDANSETRON HCL 4 MG ORAL DISINTEGRATING TAB PO PRN (10:45)
[2021-06-14 11:34] VITALS: BP 105/63
[2021-06-14] MEDS ORDERED: ASPIRIN 81 MG CHEW TAB PO ONE (11:45)
[2021-06-14] MEDS ORDERED: APIXABAN 5 MG TABLET PO SCH (17:00)
[2021-06-15] MEDS ORDERED: ASPIRIN 81 MG CHEW TAB PO SCH (09:00)
== END 2021-06-14 19:37 | disposition home or self-care (01) | DRG 177 ==
LOC: ER 23:15 → ERHOLD 06-09 02:02 → IMCU 06-09 16:25
PROVIDERS: ADMIT Internal Medicine; ATTEND Internal Medicine
PROC: 3E0333Z Introduction of Anti-inflammatory into Peripheral Vein, Percutaneous Approach (ICD-10-PCS; 2021-06-08)
PROC: XW033E5 Introduction of Remdesivir Anti-infective into Peripheral Vein, Percutaneous Approach, New Technology Group 5 (ICD-10-PCS; 2021-06-09)
PROC: 5A1D70Z Performance of Urinary Filtration, Intermittent, Less than 6 Hours Per Day (ICD-10-PCS; principal; 2021-06-10)
PROC: 5A1D70Z Performance of Urinary Filtration, Intermittent, Less than 6 Hours Per Day (ICD-10-PCS; 2021-06-12)
DX: U07.1 COVID-19 (principal); J12.82 Pneumonia due to coronavirus disease 2019; N18.6 End stage renal disease; J15.9 Unspecified bacterial pneumonia; J96.01 Acute respiratory failure with hypoxia; I13.2 Hypertensive heart and chronic kidney disease with heart failure and with stage 5 chronic kidney disease, or end stage renal disease; D84.81 Immunodeficiency due to conditions classified elsewhere; E11.22 Type 2 diabetes mellitus with diabetic chronic kidney disease; I50.9 Heart failure, unspecified; I48.0 Paroxysmal atrial fibrillation; Z99.2 Dependence on renal dialysis; Z90.49 Acquired absence of other specified parts of digestive tract; D69.6 Thrombocytopenia, unspecified; M06.9 Rheumatoid arthritis, unspecified; R53.81 Other malaise; I25.10 Atherosclerotic heart disease of native coronary artery without angina pectoris; Z95.5 Presence of coronary angioplasty implant and graft; E11.21 Type 2 diabetes mellitus with diabetic nephropathy; Z79.84 Long term (current) use of oral hypoglycemic drugs
CPT/HCPCS: 36415; 71045; 80048; 80053; 82948; 83880; 84484; 85025; 86704; 86706; 87340; 93005; 93306; 96372; 99285; J0456; J0696; J1100; J1644; J1817; J1885; J2150; J7030; J7050; U0002

== ENCOUNTER 2022-04-07 04:39 | Emergency (ER) | payer MEDICARE ==
[~2022-04-07] VITALS: Ht 149.9 cm; Wt 85.7 kg
[~2022-04-07 04:39] MED LIST changes: +HUMIRA(CF)40 MG/0.1 SQ; +OMEPRAZOLE40 MG PO; +SULFASALAZINE500 MG PO
[2022-04-07 05:05] LABS: BASOPHILS % 1.4 % (0.0-1.0); EOSINOPHILS # (AUTO) 0.2 (0.0-0.4); EOSINOPHILS % 7.1 % (0.0-6.0); HEMATOCRIT 28.3 % (34.2-44.1); LYMPHOCYTES # (AUTO) 1.1 (1.0-3.2); LYMPHOCYTES % 37.6 % (18.0-39.1); MEAN CORPUSCULAR HEMOGLOBIN 33.8 pg (28-32); MEAN CORPUSCULAR HGB CONC 31.8 g/dL (31-35); MEAN CORPUSCULAR VOLUME 106.4 fL (81-99); MONOCYTES # (AUTO) 0.2 (0.2-0.8); MONOCYTES % 8.5 % (4.4-11.3); NEUTROPHILS # (AUTO) 1.3 (2.1-6.9); PLATELET COUNT 104 x10e3/uL (140-360); RED BLOOD COUNT 2.66 x10e6/uL (3.6-5.1); RED CELL DISTRIBUTION WIDTH 15.4 % (11.7-14.4)
[2022-04-07] MEDS ORDERED: ONDANSETRON HCL INJ 2MG/ML 2ML 2 MG/ML VIAL IV STA (05:20)
[2022-04-07 05:26] LABS: ALBUMIN 3.3 g/dL (3.5-5.0); ALBUMIN/GLOBULIN RATIO 0.7 (0.8-2.0); ANION GAP 16.8 mmol/L (8-16); CALCIUM 8.2 mg/dL (8.4-10.2); CREATININE, SERUM 4.99 mg/dL (0.57-1.11); POTASSIUM 3.8 mmol/L (3.5-5.1)
[2022-04-07] MEDS ORDERED: Morphine 2mg Syringe 2 MG/ML SYR IV ONE (05:30)
[2022-04-07] MEDS ORDERED: ONDANSETRON HCL INJ 2MG/ML 2ML 2 MG/ML VIAL ONE (05:30)
[2022-04-07] MEDS ORDERED: Morphine 2mg Syringe 2 MG/ML SYR ONE (05:30)
[2022-04-07] MEDS ORDERED: FUROSEMIDE INJ 10 MG/ML 4 ML VIAL IV ONE (05:30)
[2022-04-07] MEDS ORDERED: FUROSEMIDE INJ 10 MG/ML 4 ML VIAL ONE (05:31)
[2022-04-07 06:33] VITALS: BP 153/63
== END 2022-04-07 06:00 | disposition home or self-care (01) ==
LOC: ER 05:00
DX: R07.9 Chest pain, unspecified (principal); R06.02 Shortness of breath
CPT/HCPCS: 36415; 71045; 80053; 83880; 84484; 85025; 93005; 99284; J1940; J2270; J2405; U0002

== ENCOUNTER 2022-09-13 01:27 | Inpatient (IN) | payer MEDICARE, OTHER ==
[2022-09-13] VITALS (9 sets, daily range): BP systolic 113–132; BP diastolic 44–72
[~2022-09-13] VITALS: Ht 149.9 cm; Wt 89.8 kg
[2022-09-13] MEDS ORDERED: ASPIRIN 81 MG CHEW TAB PO ONE ×2 (01:45→03:00)
[2022-09-13 01:50] LABS: BASOPHILS % 0.9 % (0.0-1.0); EOSINOPHILS # (AUTO) 0.2 (0.0-0.4); EOSINOPHILS % 7.2 % (0.0-6.0); HEMATOCRIT 32.7 % (34.2-44.1); HEMOGLOBIN 10.3 g/dL (12.0-16.0); LYMPHOCYTES # (AUTO) 1.1 (1.0-3.2); LYMPHOCYTES % 33.6 % (18.0-39.1); MEAN CORPUSCULAR HEMOGLOBIN 33.9 pg (28-32); MEAN CORPUSCULAR HGB CONC 31.5 g/dL (31-35); MEAN CORPUSCULAR VOLUME 107.6 fL (81-99); MONOCYTES # (AUTO) 0.2 (0.2-0.8); MONOCYTES % 6.6 % (4.4-11.3); NEUTROPHILS # (AUTO) 1.6 (2.1-6.9); NEUTROPHILS % 51.4 % (38.7-80.0); PLATELET COUNT 126 x10e3/uL (140-360); RED BLOOD COUNT 3.04 x10e6/uL (3.6-5.1); RED CELL DISTRIBUTION WIDTH 16.4 % (11.7-14.4)
[2022-09-13 02:02] LABS: INR 1.06; PROTHROMBIN TIME 14.8 seconds (11.9-14.5)
[2022-09-13 02:03] LABS: PARTIAL THROMBOPLASTIN TIME 35.7 seconds (23.8-35.5)
[2022-09-13 02:11] LABS: ALBUMIN 3.7 g/dL (3.5-5.0); ALBUMIN/GLOBULIN RATIO 0.8 (0.8-2.0); ANION GAP 17.1 mmol/L (8-16); CREATININE, SERUM 5.47 mg/dL (0.57-1.11); POTASSIUM 4.1 mmol/L (3.5-5.1)
[2022-09-13] MEDS ORDERED: ACETAMINOPHEN 325 MG TAB PO ONE (02:15)
[2022-09-13] MEDS ORDERED: ASPIRIN 325 MG TAB PO ONE (02:15)
[2022-09-13 02:18] LABS: CREATINE KINASE MB 1.2 ng/mL (0-5.0)
[2022-09-13] MEDS ORDERED: FUROSEMIDE INJ 10 MG/ML 4 ML VIAL IV ONE ×2 (02:45→14:15)
[2022-09-13] MEDS ORDERED: DEXTROSE 50% SYRINGE 50 ML IV PRN (03:00)
[2022-09-13] MEDS ORDERED: ONDANSETRON HCL INJ 2MG/ML 2ML 2 MG/ML VIAL IV PRN (03:00)
[2022-09-13 03:44] LABS: CLARITY,URINE CLEAR (CLEAR); COLOR,URINE YELLOW (YELLOW); LEUKOCYTE ESTERASE ,URINE NEGATIVE (NEGATIVE); NITRITE,URINE NEGATIVE (NEGATIVE); PROTEIN,URINE DIPSTICK 2+ (NEGATIVE)
[2022-09-13 03:45] LABS: BACTERIA,URINE FEW /HPF; EPITHELIAL CELLS,URINE MANY /LPF; KETONES,URINE NEGATIVE (NEGATIVE); URINE UROBILINOGEN 0.2 mg/dL (0.2 - 1); WBC,URINE (MAN) 0-5 /HPF (0-5)
[2022-09-13] MEDS: INSULIN REGULAR, HUMAN 100 UNIT/1 ML SQ SCH ×4 (07:20→20:29)
[2022-09-13] MEDS ORDERED: ACETAMINOPHEN 325 MG TAB PO PRN (08:00)
[2022-09-13] MEDS: LEVOTHYROXINE SODIUM 112 MCG TAB PO SCH (08:00)
[2022-09-13] MEDS ORDERED: SODIUM CHLORIDE 0.9% 1000ML 2,000 ML ONE (08:41)
[2022-09-13] MEDS: CARVEDILOL 12.5 MG TAB PO SCH ×2 (08:49→14:21)
[2022-09-13] MEDS: CLOPIDOGREL BISULFATE 75 MG TAB PO SCH ×2 (08:50→14:22)
[2022-09-13] MEDS ORDERED: METOPROLOL TARTRATE INJ 1 MG/ML VIAL IV PRN (14:15)
[2022-09-13] MEDS ORDERED: CEFTRIAXONE 1 GM VIAL ONE (14:29)
[2022-09-13 14:33] LABS: CREATINE KINASE MB 1.4 ng/mL (0-5.0)
[2022-09-13] MEDS ORDERED: AMIODARONE HCL 150 MG/100 ML BAG IV ONE (15:30)
[2022-09-13] MEDS ORDERED: AMIODARONE 900MG 500 ML IV SCH (16:00)
[2022-09-13] MEDS: AMIODARONE 900MG 500 ML IV SCH (17:03)
[2022-09-13] MEDS: APIXAB 2.5 MG TABLET PO SCH (17:24)
[2022-09-13] MEDS: AMIODARONE HCL 200 MG TAB PO SCH (20:25)
[2022-09-13] MEDS: ATORVASTATIN 20 MG TAB PO SCH (20:26)
[2022-09-14] VITALS (26 sets, daily range): BP systolic 105–171; BP diastolic 17–81
[2022-09-14 04:48] LABS: BASOPHILS % 1.2 % (0.0-1.0); EOSINOPHILS # (AUTO) 0.3 (0.0-0.4); EOSINOPHILS % 9.6 % (0.0-6.0); HEMATOCRIT 30.2 % (34.2-44.1); HEMOGLOBIN 9.3 g/dL (12.0-16.0); LYMPHOCYTES # (AUTO) 1.1 (1.0-3.2); LYMPHOCYTES % 33.4 % (18.0-39.1); MEAN CORPUSCULAR HEMOGLOBIN 33.1 pg (28-32); MEAN CORPUSCULAR HGB CONC 30.8 g/dL (31-35); MEAN CORPUSCULAR VOLUME 107.5 fL (81-99); MONOCYTES # (AUTO) 0.3 (0.2-0.8); MONOCYTES % 9.6 % (4.4-11.3); NEUTROPHILS # (AUTO) 1.5 (2.1-6.9); NEUTROPHILS % 46.2 % (38.7-80.0); PLATELET COUNT 115 x10e3/uL (140-360); RED BLOOD COUNT 2.81 x10e6/uL (3.6-5.1); RED CELL DISTRIBUTION WIDTH 16.5 % (11.7-14.4)
[2022-09-14 05:13] LABS: ALBUMIN 3.2 g/dL (3.5-5.0); ALBUMIN/GLOBULIN RATIO 0.8 (0.8-2.0); ANION GAP 17.1 mmol/L (8-16); CALCIUM 8.6 mg/dL (8.4-10.2); CREATININE, SERUM 4.87 mg/dL (0.57-1.11); POTASSIUM 4.1 mmol/L (3.5-5.1)
[2022-09-14] MEDS: LEVOTHYROXINE SODIUM 112 MCG TAB PO SCH (06:10)
[2022-09-14] MEDS: INSULIN REGULAR, HUMAN 100 UNIT/1 ML SQ SCH ×4 (07:30→21:00)
[2022-09-14 08:34] LABS: CREATINE KINASE MB 1.3 ng/mL (0-5.0)
[2022-09-14] MEDS: APIXAB 2.5 MG TABLET PO SCH ×2 (08:48→17:08)
[2022-09-14] MEDS: AMIODARONE HCL 200 MG TAB PO SCH ×2 (08:48→17:06)
[2022-09-14] MEDS ORDERED: HYDRALAZINE HCL 20 MG/ML VIAL IV PRN (09:15)
[2022-09-14] MEDS: CARVEDILOL 12.5 MG TAB PO SCH (17:07)
[2022-09-14] MEDS: ATORVASTATIN 20 MG TAB PO SCH (21:34)
[2022-09-14] MEDS: AMIODARONE 900MG 500 ML IV SCH (21:34)
[2022-09-15] VITALS (12 sets, daily range): BP systolic 117–163; BP diastolic 46–59
[2022-09-15 05:18] LABS: BASOPHILS # (AUTO) 0.1 (0.0-0.1); BASOPHILS % 1.8 % (0.0-1.0); EOSINOPHILS # (AUTO) 0.3 (0.0-0.4); EOSINOPHILS % 9.1 % (0.0-6.0); HEMATOCRIT 32.1 % (34.2-44.1); HEMOGLOBIN 10.2 g/dL (12.0-16.0); LYMPHOCYTES # (AUTO) 0.9 (1.0-3.2); LYMPHOCYTES % 27.5 % (18.0-39.1); MEAN CORPUSCULAR HEMOGLOBIN 33.7 pg (28-32); MEAN CORPUSCULAR HGB CONC 31.8 g/dL (31-35); MEAN CORPUSCULAR VOLUME 105.9 fL (81-99); MONOCYTES # (AUTO) 0.3 (0.2-0.8); MONOCYTES % 10.3 % (4.4-11.3); NEUTROPHILS # (AUTO) 1.7 (2.1-6.9); PLATELET COUNT 115 x10e3/uL (140-360); RED BLOOD COUNT 3.03 x10e6/uL (3.6-5.1); RED CELL DISTRIBUTION WIDTH 15.9 % (11.7-14.4)
[2022-09-15] MEDS: LEVOTHYROXINE SODIUM 112 MCG TAB PO SCH (05:39)
[2022-09-15 05:45] LABS: ALBUMIN 3.3 g/dL (3.5-5.0); ALBUMIN/GLOBULIN RATIO 0.8 (0.8-2.0); ANION GAP 14.3 mmol/L (8-16); CALCIUM 8.4 mg/dL (8.4-10.2); CREATININE, SERUM 3.8 mg/dL (0.57-1.11); POTASSIUM 4.3 mmol/L (3.5-5.1)
[2022-09-15] MEDS: INSULIN REGULAR, HUMAN 100 UNIT/1 ML SQ SCH ×4 (07:15→21:00)
[2022-09-15] MEDS: APIXAB 2.5 MG TABLET PO SCH ×2 (07:52→17:40)
[2022-09-15] MEDS: CARVEDILOL 12.5 MG TAB PO SCH ×2 (07:52→17:40)
[2022-09-15] MEDS: AMIODARONE HCL 200 MG TAB PO SCH ×2 (07:53→17:40)
[2022-09-15] MEDS: AMIODARONE 900MG 500 ML IV SCH (21:06)
[2022-09-15] MEDS: ATORVASTATIN 20 MG TAB PO SCH (21:07)
[2022-09-16] VITALS: BP 143/58
[2022-09-16 01:00] VITALS: BP 141/56
[2022-09-16 04:26] VITALS: BP 145/55
[2022-09-16] MEDS: LEVOTHYROXINE SODIUM 112 MCG TAB PO SCH (06:37)
[2022-09-16 06:40] VITALS: BP 161/63
[2022-09-16 07:28] VITALS: BP 156/57
[2022-09-16] MEDS: INSULIN REGULAR, HUMAN 100 UNIT/1 ML SQ SCH (07:30)
[2022-09-16 08:00] VITALS: BP 156/57
[2022-09-16 08:28] LABS: BASOPHILS # (AUTO) 0.1 (0.0-0.1); BASOPHILS % 1.4 % (0.0-1.0); EOSINOPHILS # (AUTO) 0.4 (0.0-0.4); EOSINOPHILS % 9.6 % (0.0-6.0); HEMATOCRIT 35.6 % (34.2-44.1); LYMPHOCYTES % 28.2 % (18.0-39.1); MEAN CORPUSCULAR HEMOGLOBIN 33.5 pg (28-32); MEAN CORPUSCULAR HGB CONC 30.9 g/dL (31-35); MEAN CORPUSCULAR VOLUME 108.5 fL (81-99); MONOCYTES # (AUTO) 0.3 (0.2-0.8); MONOCYTES % 8.8 % (4.4-11.3); NEUTROPHILS # (AUTO) 1.9 (2.1-6.9); PLATELET COUNT 135 x10e3/uL (140-360); RED BLOOD COUNT 3.28 x10e6/uL (3.6-5.1)
[2022-09-16 08:51] LABS: ALBUMIN 3.7 g/dL (3.5-5.0); ALBUMIN/GLOBULIN RATIO 0.8 (0.8-2.0); ANION GAP 12.3 mmol/L (8-16); CALCIUM 8.7 mg/dL (8.4-10.2); CREATININE, SERUM 3.74 mg/dL (0.57-1.11); POTASSIUM 4.3 mmol/L (3.5-5.1)
[2022-09-16] MEDS: APIXAB 2.5 MG TABLET PO SCH (09:05)
[2022-09-16] MEDS: CARVEDILOL 12.5 MG TAB PO SCH (09:07)
[2022-09-16] MEDS: AMIODARONE HCL 200 MG TAB PO SCH (09:08)
[2022-09-16 09:09] LABS: MAGNESIUM 2.1 MG/DL (1.3-2.1); PHOSPHORUS 3.7 MG/DL (2.3-4.7)
== END 2022-09-16 09:58 | disposition home or self-care (01) | DRG 291 ==
LOC: ER 01:32 → ERHOLD 03:00 → INTOOBSV 03:00 → ICU 16:27 → OBSVTOIN 16:54
PROVIDERS: ADMIT Internal Medicine; ATTEND Internal Medicine
PROC: 5A1D70Z Performance of Urinary Filtration, Intermittent, Less than 6 Hours Per Day (ICD-10-PCS; principal; 2022-09-13)
DX: I13.2 Hypertensive heart and chronic kidney disease with heart failure and with stage 5 chronic kidney disease, or end stage renal disease (principal); I50.33 Acute on chronic diastolic (congestive) heart failure; N18.6 End stage renal disease; I48.0 Paroxysmal atrial fibrillation; Z99.2 Dependence on renal dialysis; Z79.01 Long term (current) use of anticoagulants; I25.2 Old myocardial infarction; E11.22 Type 2 diabetes mellitus with diabetic chronic kidney disease; N25.0 Renal osteodystrophy; D63.1 Anemia in chronic kidney disease; E11.40 Type 2 diabetes mellitus with diabetic neuropathy, unspecified; I25.10 Atherosclerotic heart disease of native coronary artery without angina pectoris; E78.5 Hyperlipidemia, unspecified; E11.69 Type 2 diabetes mellitus with other specified complication; Z95.5 Presence of coronary angioplasty implant and graft; M06.9 Rheumatoid arthritis, unspecified; I35.0 Nonrheumatic aortic (valve) stenosis; Z20.822 Contact with and (suspected) exposure to COVID-19
CPT/HCPCS: 36415; 71045; 80053; 81001; 82550; 82553; 82948; 83605; 83735; 83880; 84100; 84484; 85025; 85610; 85730; 86706; 87040; 87086; 87350; 87400; 90962; 93005; 94799; 99285; J0456; J0696; J1817; J1940; J7030; J7050

== ENCOUNTER 2023-05-03 20:27 | Inpatient (IN) | payer MEDICARE, OTHER ==
[~2023-05-03] VITALS: Ht 149.9 cm; Wt 89.8 kg
[2023-05-03] MEDS ORDERED: SODIUM CHLORIDE FLUSH 10 ML SYR IV PRN (20:45)
[2023-05-03 20:59] LABS: BASOPHILS % 0.9 % (0.0-1.0); EOSINOPHILS # (AUTO) 0.1 (0.0-0.4); EOSINOPHILS % 3.4 % (0.0-6.0); HEMATOCRIT 33.7 % (34.2-44.1); HEMOGLOBIN 11.4 g/dL (12.0-16.0); LYMPHOCYTES # (AUTO) 0.6 (1.0-3.2); LYMPHOCYTES % 19.8 % (18.0-39.1); MEAN CORPUSCULAR HGB CONC 33.8 g/dL (31-35); MEAN CORPUSCULAR VOLUME 100.6 fL (81-99); MONOCYTES # (AUTO) 0.4 (0.2-0.8); MONOCYTES % 10.8 % (4.4-11.3); NEUTROPHILS # (AUTO) 2.1 (2.1-6.9); NEUTROPHILS % 65.1 % (38.7-80.0); RED BLOOD COUNT 3.35 x10e6/uL (3.6-5.1); RED CELL DISTRIBUTION WIDTH 15.5 % (11.7-14.4)
[2023-05-03 21:02] LABS: PLATELET COUNT 74 x10e3/uL (140-360)
[2023-05-03 21:19] LABS: ALANINE AMINOTRANSFERASE 20 IU/L (0-55); ALBUMIN 3.4 g/dL (3.5-5.0); ALBUMIN/GLOBULIN RATIO 0.7 (0.8-2.0); ALKALINE PHOSPHATASE 104 IU/L (40-150); ANION GAP 19.2 mmol/L (8-16); BLOOD UREA NITROGEN 40 mg/dL (7-26); BUN/CREATININE RATIO 6 (6-25); CALCIUM 8.5 mg/dL (8.4-10.2); CARBON DIOXIDE 24 mmol/L (22-29); CHLORIDE 98 mmol/L (98-107); CREATININE, SERUM 6.23 mg/dL (0.57-1.11); GLUCOSE 118 mg/dL (74-118); POTASSIUM 4.2 mmol/L (3.5-5.1); SODIUM 137 mmol/L (136-145)
[2023-05-03 22:00] LABS: PLATELET MORPHOLOGY COMMENT PLATELET SATELITE; RBC MORPHOLOGY COMMENT NORMAL
[2023-05-03 22:01] LABS: PLATELET ESTIMATE MODERATELY DECREASED
[2023-05-03] MEDS ORDERED: ACETAMINOPHEN 325 MG TAB PO ONE (22:15)
[2023-05-04] VITALS (11 sets, daily range): BP systolic 111–185; BP diastolic 49–80; PULSE 57–109; RESP 16–20; TEMP 98–98.6; O2SAT 97–100
[2023-05-04] MEDS ORDERED: ONDANSETRON HCL INJ 2MG/ML 2ML 2 MG/ML VIAL IV PRN (00:45)
[2023-05-04] MEDS ORDERED: ASPIRIN 81 MG CHEW TAB PO ONE (00:45)
[2023-05-04] MEDS ORDERED: SODIUM CHLORIDE FLUSH 10 ML SYR INJ PRN (00:45)
[2023-05-04] MEDS ORDERED: ACETAMINOPHEN/CODEINE 300MG - 30MG TAB PO PRN (10:03)
[2023-05-04] MEDS ORDERED: SODIUM CHLORIDE 0.9% 250ML 250 ML ONE (10:06)
[2023-05-04] MEDS: AMLODIPINE BESYLATE 10 MG TAB PO SCH (10:10)
[2023-05-04] MEDS ORDERED: ACETAMINOPHEN 325 MG TAB PO PRN (10:15)
[2023-05-04] MEDS ORDERED: TRAMADOL HCL 50 MG TAB PO PRN (10:15)
[2023-05-04] MEDS ORDERED: TIZANIDINE HCL 4 MG TAB PO PRN (10:15)
[2023-05-04] MEDS: PANTOPRAZOLE SOD 40 MG TABEC PO SCH (10:51)
[2023-05-04] MEDS: SODIUM BICARBONATE 650 MG TAB PO SCH (10:51)
[2023-05-04] MEDS: ALLOPURINOL 100 MG TAB PO SCH (10:51)
[2023-05-04] MEDS: LEVOTHYROXINE SODIUM 112 MCG TAB PO SCH (10:51)
[2023-05-04] MEDS ORDERED: SODIUM CHLORIDE 0.9% 1000ML 2,000 ML ONE (13:53)
[2023-05-04] MEDS ORDERED: SODIUM CHLORIDE 0.9% 1000ML 2,000 ML IV PRN (15:00)
[2023-05-04] MEDS: CARVEDILOL 12.5 MG TAB PO SCH ×2 (15:50→16:48)
[2023-05-04] MEDS: GABAPENTIN 300 MG CAP PO SCH (16:12)
[2023-05-04] MEDS: PRAMIPEXOLE DIHYDROCHLORIDE 0.25 MG TAB PO SCH (21:17)
[2023-05-05] VITALS (8 sets, daily range): BP systolic 120–153; BP diastolic 51–57; PULSE 57–100; RESP 18–20; TEMP 97.7–98.4; O2SAT 97–100
[2023-05-05 05:42] LABS: BASOPHILS % 1.1 % (0.0-1.0); EOSINOPHILS # (AUTO) 0.2 (0.0-0.4); EOSINOPHILS % 7.9 % (0.0-6.0); HEMATOCRIT 32.7 % (34.2-44.1); HEMOGLOBIN 10.9 g/dL (12.0-16.0); LYMPHOCYTES # (AUTO) 1.2 (1.0-3.2); LYMPHOCYTES % 44.1 % (18.0-39.1); MEAN CORPUSCULAR HEMOGLOBIN 33.9 pg (28-32); MEAN CORPUSCULAR HGB CONC 33.3 g/dL (31-35); MEAN CORPUSCULAR VOLUME 101.6 fL (81-99); MONOCYTES # (AUTO) 0.4 (0.2-0.8); MONOCYTES % 14.3 % (4.4-11.3); NEUTROPHILS # (AUTO) 0.9 (2.1-6.9); NEUTROPHILS % 32.6 % (38.7-80.0); PLATELET COUNT 78 x10e3/uL (140-360); RED BLOOD COUNT 3.22 x10e6/uL (3.6-5.1); RED CELL DISTRIBUTION WIDTH 14.6 % (11.7-14.4)
[2023-05-05] MEDS: LEVOTHYROXINE SODIUM 112 MCG TAB PO SCH (06:06)
[2023-05-05 06:22] LABS: ALBUMIN 2.8 g/dL (3.5-5.0); ALBUMIN/GLOBULIN RATIO 0.7 (0.8-2.0); ANION GAP 13.8 mmol/L (8-16); CALCIUM 8.3 mg/dL (8.4-10.2); CREATININE, SERUM 4.59 mg/dL (0.57-1.11); POTASSIUM 3.8 mmol/L (3.5-5.1)
[2023-05-05] MEDS: PANTOPRAZOLE SOD 40 MG TABEC PO SCH (08:49)
[2023-05-05] MEDS: SODIUM BICARBONATE 650 MG TAB PO SCH (08:49)
[2023-05-05] MEDS: AMLODIPINE BESYLATE 10 MG TAB PO SCH (08:49)
[2023-05-05] MEDS: CARVEDILOL 12.5 MG TAB PO SCH ×2 (08:50→17:06)
[2023-05-05] MEDS: ALLOPURINOL 100 MG TAB PO SCH (08:50)
[2023-05-05] MEDS: GABAPENTIN 300 MG CAP PO SCH ×2 (08:50→17:05)
[2023-05-05] MEDS ORDERED: ONDANSETRON HCL 4 MG ORAL DISINTEGRATING TAB PO PRN (13:30)
[2023-05-05 15:43] LABS: HEMATOCRIT 32.7 % (34.2-44.1); MEAN CORPUSCULAR HEMOGLOBIN 33.8 pg (28-32); MEAN CORPUSCULAR HGB CONC 33.6 g/dL (31-35); MEAN CORPUSCULAR VOLUME 100.6 fL (81-99); PLATELET COUNT 80 x10e3/uL (140-360); RED BLOOD COUNT 3.25 x10e6/uL (3.6-5.1); RED CELL DISTRIBUTION WIDTH 14.7 % (11.7-14.4)
[2023-05-05 15:46] LABS: INR 1.03; PROTHROMBIN TIME 14.1 seconds (11.9-14.5)
[2023-05-05 15:47] LABS: PARTIAL THROMBOPLASTIN TIME 36.8 seconds (23.8-35.5)
[2023-05-05 17:17] LABS: NEUTROPHILS % (MANUAL) 34 % (40-74)
[2023-05-05 17:18] LABS: EOSINOPHILS % (MANUAL) 9 % (0-7); LYMPHOCYTES % (MANUAL) 46 % (19-48); MONOCYTES % (MANUAL) 10 % (3.4-9.0)
[2023-05-05 17:19] LABS: PLATELET ESTIMATE MODERATELY DECREASED
[2023-05-05 17:21] LABS: PLATELET MORPHOLOGY COMMENT PLATELET SATELITE; RBC MORPHOLOGY COMMENT NORMAL
[2023-05-05] MEDS: PRAMIPEXOLE DIHYDROCHLORIDE 0.25 MG TAB PO SCH (21:02)
[2023-05-05] MEDS: HEPARIN SOD (PORCINE) 5,000 UNIT/ML VIAL SC SCH (21:06)
[2023-05-06] VITALS (10 sets, daily range): BP systolic 99–150; BP diastolic 52–82; PULSE 56–71; RESP 16–20; TEMP 97.1–97.9; O2SAT 95–99
[2023-05-06] MEDS: LEVOTHYROXINE SODIUM 112 MCG TAB PO SCH (05:56)
[2023-05-06 06:57] LABS: BASOPHILS % 1.3 % (0.0-1.0); EOSINOPHILS # (AUTO) 0.3 (0.0-0.4); EOSINOPHILS % 8.4 % (0.0-6.0); HEMATOCRIT 31.4 % (34.2-44.1); HEMOGLOBIN 10.6 g/dL (12.0-16.0); LYMPHOCYTES # (AUTO) 1.6 (1.0-3.2); LYMPHOCYTES % 53.8 % (18.0-39.1); MEAN CORPUSCULAR HEMOGLOBIN 34.2 pg (28-32); MEAN CORPUSCULAR HGB CONC 33.8 g/dL (31-35); MEAN CORPUSCULAR VOLUME 101.3 fL (81-99); MONOCYTES # (AUTO) 0.2 (0.2-0.8); MONOCYTES % 7.4 % (4.4-11.3); NEUTROPHILS # (AUTO) 0.9 (2.1-6.9); NEUTROPHILS % 29.1 % (38.7-80.0); PLATELET COUNT 83 x10e3/uL (140-360); RED CELL DISTRIBUTION WIDTH 14.7 % (11.7-14.4)
[2023-05-06] MEDS: PANTOPRAZOLE SOD 40 MG TABEC PO SCH (07:30)
[2023-05-06] MEDS: CARVEDILOL 12.5 MG TAB PO SCH ×2 (09:00→21:38)
[2023-05-06] MEDS: AMLODIPINE BESYLATE 10 MG TAB PO SCH (09:00)
[2023-05-06] MEDS: AZITHROMYCIN 250 MG TAB PO SCH (09:27)
[2023-05-06] MEDS: SODIUM BICARBONATE 650 MG TAB PO SCH (09:27)
[2023-05-06] MEDS: ALLOPURINOL 100 MG TAB PO SCH (09:27)
[2023-05-06] MEDS: GABAPENTIN 300 MG CAP PO SCH ×2 (09:29→21:37)
[2023-05-06] MEDS: HEPARIN SOD (PORCINE) 5,000 UNIT/ML VIAL SC SCH ×2 (09:38→21:36)
[2023-05-06] MEDS: PRAMIPEXOLE DIHYDROCHLORIDE 0.25 MG TAB PO SCH (21:34)
[2023-05-07] VITALS: BP 117/45; PULSE 59; RESP 17; TEMP 98.1; O2SAT 96
[2023-05-07 04:00] VITALS: BP 131/46; PULSE 62; RESP 16; TEMP 98; O2SAT 100
[2023-05-07] MEDS: LEVOTHYROXINE SODIUM 112 MCG TAB PO SCH (05:45)
[2023-05-07 06:48] VITALS: PULSE 89; RESP 20; O2SAT 94
[2023-05-07 07:16] LABS: BASOPHILS % 1.3 % (0.0-1.0); EOSINOPHILS # (AUTO) 0.2 (0.0-0.4); HEMATOCRIT 34.5 % (34.2-44.1); HEMOGLOBIN 11.1 g/dL (12.0-16.0); LYMPHOCYTES # (AUTO) 1.4 (1.0-3.2); LYMPHOCYTES % 46.3 % (18.0-39.1); MEAN CORPUSCULAR HEMOGLOBIN 33.3 pg (28-32); MEAN CORPUSCULAR HGB CONC 32.2 g/dL (31-35); MEAN CORPUSCULAR VOLUME 103.6 fL (81-99); MONOCYTES # (AUTO) 0.3 (0.2-0.8); MONOCYTES % 8.7 % (4.4-11.3); NEUTROPHILS # (AUTO) 1.1 (2.1-6.9); NEUTROPHILS % 35.4 % (38.7-80.0); PLATELET COUNT 101 x10e3/uL (140-360); RED BLOOD COUNT 3.33 x10e6/uL (3.6-5.1); RED CELL DISTRIBUTION WIDTH 14.6 % (11.7-14.4)
[2023-05-07 08:10] VITALS: BP 121/61; PULSE 61; RESP 16; TEMP 98.1; O2SAT 99
[2023-05-07 08:16] VITALS: BP 121/61; PULSE 61; RESP 16; TEMP 98.1; O2SAT 99
[2023-05-07] MEDS: SODIUM BICARBONATE 650 MG TAB PO SCH (09:04)
[2023-05-07] MEDS: ALLOPURINOL 100 MG TAB PO SCH (09:04)
[2023-05-07] MEDS: GABAPENTIN 300 MG CAP PO SCH (09:04)
[2023-05-07] MEDS: AZITHROMYCIN 250 MG TAB PO SCH (09:05)
[2023-05-07] MEDS: PANTOPRAZOLE SOD 40 MG TABEC PO SCH (09:06)
[2023-05-07] MEDS: CARVEDILOL 12.5 MG TAB PO SCH (09:06)
[2023-05-07] MEDS: AMLODIPINE BESYLATE 10 MG TAB PO SCH (09:07)
[2023-05-07] MEDS: HEPARIN SOD (PORCINE) 5,000 UNIT/ML VIAL SC SCH (09:43)
== END 2023-05-07 10:42 | disposition home or self-care (01) | DRG 193 ==
LOC: ER 20:34 → ERHOLD 05-04 00:45 → MED/SURG3 05-04 02:25 → OBSVTOIN 05-04 10:00
PROVIDERS: ADMIT Internal Medicine; ATTEND Internal Medicine
PROC: 5A1D70Z Performance of Urinary Filtration, Intermittent, Less than 6 Hours Per Day (ICD-10-PCS; principal; 2023-05-04)
DX: J18.9 Pneumonia, unspecified organism (principal); I50.33 Acute on chronic diastolic (congestive) heart failure; N18.6 End stage renal disease; I13.2 Hypertensive heart and chronic kidney disease with heart failure and with stage 5 chronic kidney disease, or end stage renal disease; N25.81 Secondary hyperparathyroidism of renal origin; D61.818 Other pancytopenia; M06.9 Rheumatoid arthritis, unspecified; E78.5 Hyperlipidemia, unspecified; I25.10 Atherosclerotic heart disease of native coronary artery without angina pectoris; K21.9 Gastro-esophageal reflux disease without esophagitis; E11.22 Type 2 diabetes mellitus with diabetic chronic kidney disease; M10.9 Gout, unspecified; J20.9 Acute bronchitis, unspecified; D63.1 Anemia in chronic kidney disease; E03.9 Hypothyroidism, unspecified; I48.0 Paroxysmal atrial fibrillation; D72.819 Decreased white blood cell count, unspecified; D69.6 Thrombocytopenia, unspecified; Z20.822 Contact with and (suspected) exposure to COVID-19; Z99.2 Dependence on renal dialysis; Z95.5 Presence of coronary angioplasty implant and graft; Z90.49 Acquired absence of other specified parts of digestive tract; Z86.16 Personal history of COVID-19; Z79.02 Long term (current) use of antithrombotics/antiplatelets; Z79.01 Long term (current) use of anticoagulants
CPT/HCPCS: 0223U; 36415; 71045; 76700; 80053; 82550; 82607; 82746; 82747; 82948; 83880; 84484; 85007; 85025; 85027; 85379; 85384; 85610; 85730; 86706; 86707; 87400; 93005; 94760; 94799; 99284; J0696; J1644; J7030; J7050

== ENCOUNTER 2023-11-16 11:18 | Emergency (ER) | payer MEDICARE, OTHER ==
[~2023-11-16] VITALS: Ht 149.9 cm; Wt 79.4 kg
[2023-11-16 11:48] LABS: BASOPHILS % 1.3 % (0.0-1.0); EOSINOPHILS # (AUTO) 0.1 (0.0-0.4); EOSINOPHILS % 4.2 % (0.0-6.0); HEMATOCRIT 37.9 % (34.2-44.1); HEMOGLOBIN 12.7 g/dL (12.0-16.0); LYMPHOCYTES # (AUTO) 1.4 (1.0-3.2); LYMPHOCYTES % 45.5 % (18.0-39.1); MEAN CORPUSCULAR HEMOGLOBIN 35.1 pg (28-32); MEAN CORPUSCULAR HGB CONC 33.5 g/dL (31-35); MEAN CORPUSCULAR VOLUME 104.7 fL (81-99); MONOCYTES # (AUTO) 0.3 (0.2-0.8); MONOCYTES % 8.1 % (4.4-11.3); NEUTROPHILS # (AUTO) 1.3 (2.1-6.9); NEUTROPHILS % 40.9 % (38.7-80.0); PLATELET COUNT 83 x10e3/uL (140-360); RED BLOOD COUNT 3.62 x10e6/uL (3.6-5.1); RED CELL DISTRIBUTION WIDTH 13.6 % (11.7-14.4)
[2023-11-16 12:01] LABS: PROTHROMBIN TIME 13.4 seconds (11.9-14.5)
[2023-11-16 12:02] LABS: PARTIAL THROMBOPLASTIN TIME 56.1 seconds (23.8-35.5)
[2023-11-16 12:04] LABS: ALBUMIN 3.9 g/dL (3.5-5.0); ALBUMIN/GLOBULIN RATIO 0.8 (0.8-2.0); ANION GAP 18.5 mmol/L (8-16); BILIRUBIN,TOTAL 0.7 mg/dL (0.2-1.2); CALCIUM 9.1 mg/dL (8.4-10.2); CREATININE, SERUM 3.31 mg/dL (0.57-1.11); POTASSIUM 3.5 mmol/L (3.5-5.1); TOTAL PROTEIN 8.7 g/dL (6.5-8.1)
[2023-11-16 12:10] LABS: TROPONIN I 0.034 ng/mL (0-0.300)
[2023-11-16 12:33] VITALS: O2SAT 100
== END 2023-11-16 13:15 | disposition home or self-care (01) ==
LOC: ER 11:26
DX: R06.02 Shortness of breath (principal); M54.2 Cervicalgia; J39.2 Other diseases of pharynx; Z11.52 Encounter for screening for COVID-19; R94.31 Abnormal electrocardiogram [ECG] [EKG]
CPT/HCPCS: 36415; 71045; 80053; 82550; 83880; 84484; 85025; 85610; 85730; 87040; 93005; 99284; U0002

== ENCOUNTER 2023-11-28 11:05 | Inpatient (IN) | payer MEDICARE, OTHER ==
[~2023-11-28] VITALS: Ht 149.9 cm; Wt 81.6 kg
[2023-11-28 12:27] LABS: BASOPHILS % 1.2 % (0.0-1.0); EOSINOPHILS # (AUTO) 0.2 (0.0-0.4); EOSINOPHILS % 4.5 % (0.0-6.0); HEMATOCRIT 28.5 % (34.2-44.1); HEMOGLOBIN 9.2 g/dL (12.0-16.0); LYMPHOCYTES # (AUTO) 1.1 (1.0-3.2); LYMPHOCYTES % 34.4 % (18.0-39.1); MEAN CORPUSCULAR HGB CONC 32.3 g/dL (31-35); MEAN CORPUSCULAR VOLUME 108.4 fL (81-99); MONOCYTES # (AUTO) 0.3 (0.2-0.8); MONOCYTES % 8.8 % (4.4-11.3); NEUTROPHILS # (AUTO) 1.7 (2.1-6.9); NEUTROPHILS % 51.1 % (38.7-80.0); PLATELET COUNT 71 x10e3/uL (140-360); RED BLOOD COUNT 2.63 x10e6/uL (3.6-5.1); RED CELL DISTRIBUTION WIDTH 13.7 % (11.7-14.4); WHITE BLOOD COUNT 3.31 x10e3/uL (4.8-10.8)
[2023-11-28 12:31] LABS: INR 1.18; PROTHROMBIN TIME 15.3 seconds (11.9-14.5)
[2023-11-28 12:32] LABS: PARTIAL THROMBOPLASTIN TIME 33.9 seconds (23.8-35.5)
[2023-11-28 12:42] LABS: ALBUMIN 3.3 g/dL (3.5-5.0); ALBUMIN/GLOBULIN RATIO 0.8 (0.8-2.0); ANION GAP 17.4 mmol/L (8-16); BILIRUBIN,TOTAL 0.5 mg/dL (0.2-1.2); CREATININE, SERUM 5.3 mg/dL (0.57-1.11); POTASSIUM 4.4 mmol/L (3.5-5.1); TOTAL PROTEIN 7.4 g/dL (6.5-8.1)
[2023-11-28 12:47] LABS: TROPONIN I 0.038 ng/mL (0-0.300)
[2023-11-28] MEDS: DILTIAZEM HCL 5 MG/ML 5 ML VIAL IV STA (13:13)
[2023-11-28] MEDS: DILTIAZEM HCL 30 MG TAB PO SCH (13:42)
[2023-11-28] MEDS: DILTIAZEM HCL ER 120 MG CAP PO SCH (13:50)
[2023-11-28] MEDS: FAMOTIDINE 20 MG/2 ML VIAL IV SCH (14:48)
[2023-11-28] MEDS: METOPROLOL TARTRATE 25 MG TAB PO ONE (15:00)
[2023-11-28 18:00] VITALS: BP 111/69; PULSE 106; RESP 18; TEMP 98.6; O2SAT 98
[2023-11-28] MEDS: APIXAB 2.5 MG TABLET PO SCH (18:32)
[2023-11-28] MEDS: CARVEDILOL 12.5 MG TAB PO SCH (18:33)
[2023-11-28] MEDS: AMIODARONE HCL 200 MG TAB PO SCH (18:33)
[2023-11-28] MEDS ORDERED: CYCLOBENZAPRINE HCL 10 MG TAB PO PRN (18:45)
[2023-11-28 18:48] LABS: TROPONIN I 0.051 ng/mL (0-0.300)
[2023-11-28 18:55] VITALS: BP 111/69; PULSE 68; RESP 17; TEMP 98.6; O2SAT 98
[2023-11-28 20:00] VITALS: BP 119/57; PULSE 68; RESP 17; TEMP 98.6; O2SAT 98
[2023-11-28 20:42] VITALS: BP 119/57; PULSE 56; RESP 17; TEMP 98.3; O2SAT 96
[2023-11-28] MEDS: ATORVASTATIN 20 MG TAB PO SCH (20:48)
[2023-11-28] MEDS: PRAMIPEXOLE DIHYDROCHLORIDE 0.25 MG TAB PO SCH (20:48)
[2023-11-29] VITALS (8 sets, daily range): BP systolic 115–151; BP diastolic 51–63; PULSE 50–56; RESP 16–18; TEMP 97.7–98.4; O2SAT 95–96
[2023-11-29] MEDS: LEVOTHYROXINE SODIUM 112 MCG TAB PO SCH (05:42)
[2023-11-29 06:04] LABS: BASOPHILS % 0.6 % (0.0-1.0); EOSINOPHILS # (AUTO) 0.1 (0.0-0.4); EOSINOPHILS % 3.2 % (0.0-6.0); HEMATOCRIT 27.1 % (34.2-44.1); HEMOGLOBIN 8.8 g/dL (12.0-16.0); LYMPHOCYTES # (AUTO) 0.9 (1.0-3.2); LYMPHOCYTES % 26.7 % (18.0-39.1); MEAN CORPUSCULAR HEMOGLOBIN 34.5 pg (28-32); MEAN CORPUSCULAR HGB CONC 32.5 g/dL (31-35); MEAN CORPUSCULAR VOLUME 106.3 fL (81-99); MONOCYTES # (AUTO) 0.3 (0.2-0.8); MONOCYTES % 8.7 % (4.4-11.3); NEUTROPHILS # (AUTO) 2.1 (2.1-6.9); NEUTROPHILS % 60.5 % (38.7-80.0); PLATELET COUNT 90 x10e3/uL (140-360); RED BLOOD COUNT 2.55 x10e6/uL (3.6-5.1); RED CELL DISTRIBUTION WIDTH 14.1 % (11.7-14.4); WHITE BLOOD COUNT 3.44 x10e3/uL (4.8-10.8)
[2023-11-29 06:31] LABS: ALBUMIN 3.2 g/dL (3.5-5.0); ALBUMIN/GLOBULIN RATIO 0.9 (0.8-2.0); ANION GAP 17.7 mmol/L (8-16); BILIRUBIN,TOTAL 0.5 mg/dL (0.2-1.2); CALCIUM 7.9 mg/dL (8.4-10.2); CHOL/HDL RATIO 1.9 (3.0-3.6); CREATININE, SERUM 6.5 mg/dL (0.57-1.11); POTASSIUM 4.7 mmol/L (3.5-5.1); TOTAL PROTEIN 6.9 g/dL (6.5-8.1)
[2023-11-29 07:09] LABS: TROPONIN I 0.079 ng/mL (0-0.300)
[2023-11-29] MEDS: AMLODIPINE BESYLATE 5 MG TAB PO SCH (08:57)
[2023-11-29] MEDS: ALLOPURINOL 100 MG TAB PO SCH (08:57)
[2023-11-29] MEDS: TRAMADOL HCL 50 MG TAB PO PRN (08:57)
[2023-11-29] MEDS: SULFASALAZINE 500 MG TAB PO SCH (08:57)
[2023-11-29] MEDS: PANTOPRAZOLE SOD 40 MG TABEC PO SCH (08:58)
[2023-11-29] MEDS: SODIUM BICARBONATE 650 MG TAB PO SCH (08:58)
[2023-11-29] MEDS: FUROSEMIDE 40 MG TAB PO SCH (08:58)
[2023-11-29] MEDS ORDERED: GABAPENTIN 300 MG CAP PO SCH (09:00)
[2023-11-29] MEDS ORDERED: LEVOTHYROXINE SODIUM 75 MCG TAB PO SCH (09:00)
[2023-11-29] MEDS ORDERED: ATORVASTATIN 20 MG TAB PO SCH (09:00)
[2023-11-29] MEDS: GABAPENTIN 100 MG CAP PO SCH (09:02)
[2023-11-29] MEDS: EPOETIN ALFA-EPBX 10,000 UNIT/ML VIAL SC ONE (10:54)
[2023-11-29] MEDS: ONDANSETRON HCL INJ 2MG/ML 2ML 2 MG/ML VIAL IV PRN (17:02)
[2023-11-30] VITALS (8 sets, daily range): BP systolic 112–158; BP diastolic 48–81; PULSE 51–64; RESP 17–20; TEMP 97.6–98.3; O2SAT 95–100
[2023-11-30] MEDS ORDERED: METOCLOPRAMIDE HCL 10 MG/2ML VIAL IV PRN (10:15)
[2023-11-30] MEDS ORDERED: HYDRALAZINE HCL 20 MG/ML VIAL IV PRN (10:15)
[2023-11-30] MEDS ORDERED: IOPAMIDOL 370 MG/ML 100 ML INFUS..BTL INJ ONE (11:04)
[2023-11-30] MEDS: SODIUM CHLORIDE 0.9% 250ML 250 ML ONE (12:33)
[2023-11-30] MEDS: CARVEDILOL 12.5 MG TAB PO SCH (16:36)
[2023-12-01] VITALS (32 sets, daily range): BP systolic 102–186; BP diastolic 40–78; PULSE 49–128; RESP 0–25; TEMP 97.2–98.3; O2SAT 90–100
[2023-12-01] MEDS: METOPROLOL TARTRATE INJ 1 MG/ML VIAL IV STA (01:34)
[2023-12-01] MEDS ORDERED: DILTIAZEM HCL 125 ML IV SCH (03:45)
[2023-12-01] MEDS: DILTIAZEM HCL 5 MG/ML 5 ML VIAL IV ONE (04:07)
[2023-12-01] MEDS ORDERED: DILTIAZEM HCL 100 ML IV SCH (04:15)
[2023-12-01] MEDS: SODIUM CHLORIDE 0.9% 1000ML 1,000 ML ONE ×2 (07:25→07:26)
[2023-12-01 07:34] LABS: BASOPHILS % 0.5 % (0.0-1.0); EOSINOPHILS # (AUTO) 0.1 (0.0-0.4); EOSINOPHILS % 2.9 % (0.0-6.0); HEMATOCRIT 28.3 % (34.2-44.1); HEMOGLOBIN 9.3 g/dL (12.0-16.0); LYMPHOCYTES # (AUTO) 0.9 (1.0-3.2); LYMPHOCYTES % 22.4 % (18.0-39.1); MEAN CORPUSCULAR HEMOGLOBIN 34.8 pg (28-32); MEAN CORPUSCULAR HGB CONC 32.9 g/dL (31-35); MONOCYTES # (AUTO) 0.5 (0.2-0.8); MONOCYTES % 11.1 % (4.4-11.3); NEUTROPHILS # (AUTO) 2.6 (2.1-6.9); NEUTROPHILS % 62.9 % (38.7-80.0); PLATELET COUNT 103 x10e3/uL (140-360); RED BLOOD COUNT 2.67 x10e6/uL (3.6-5.1); RED CELL DISTRIBUTION WIDTH 13.8 % (11.7-14.4); WHITE BLOOD COUNT 4.15 x10e3/uL (4.8-10.8)
[2023-12-01 07:55] LABS: ANION GAP 14.9 mmol/L (8-16); CALCIUM 8.2 mg/dL (8.4-10.2); CREATININE, SERUM 4.44 mg/dL (0.57-1.11); POTASSIUM 3.9 mmol/L (3.5-5.1)
[2023-12-01] MEDS ORDERED: METOPROLOL TARTRATE INJ 1 MG/ML VIAL IV PRN (12:45)
[2023-12-01] MEDS ORDERED: METOPROLOL TARTRATE 25 MG TAB PO SCH (14:00)
[2023-12-01] MEDS: AMIODARONE HCL 200 MG TAB PO SCH (16:21)
[2023-12-01] MEDS: METOPROLOL TARTRATE 25 MG TAB PO SCH (21:00)
[2023-12-02] VITALS (16 sets, daily range): BP systolic 115–179; BP diastolic 47–83; PULSE 47–60; RESP 9–23; TEMP 97.9–98.5; O2SAT 98–100
[2023-12-02 07:32] LABS: ALBUMIN 3.2 g/dL (3.5-5.0); ALBUMIN/GLOBULIN RATIO 0.9 (0.8-2.0); ANION GAP 14.9 mmol/L (8-16); BILIRUBIN,TOTAL 0.4 mg/dL (0.2-1.2); CALCIUM 7.9 mg/dL (8.4-10.2); CREATININE, SERUM 6.3 mg/dL (0.57-1.11); POTASSIUM 3.9 mmol/L (3.5-5.1); TOTAL PROTEIN 6.7 g/dL (6.5-8.1)
[2023-12-02 07:50] LABS: CLARITY,URINE CLOUDY (CLEAR); COLOR,URINE YELLOW (YELLOW); GLUCOSE, URINE 1+ (NEGATIVE); LEUKOCYTE ESTERASE ,URINE NEGATIVE (NEGATIVE); NITRITE,URINE NEGATIVE (NEGATIVE); PH,URINE 8 (5 - 7); PROTEIN,URINE DIPSTICK >=300 (NEGATIVE)
[2023-12-02 07:51] LABS: BILIRUBIN,URINE NEGATIVE (NEGATIVE); KETONES,URINE NEGATIVE (NEGATIVE); URINE UROBILINOGEN 0.2 mg/dL (0.2 - 1)
[2023-12-02 08:29] LABS: BACTERIA,URINE FEW /HPF; EPITHELIAL CELLS,URINE MANY /LPF; RBC,URINE 21-50 /HPF (0-5); WBC,URINE (MAN) 0-5 /HPF (0-5)
[2023-12-02] MEDS ORDERED: SODIUM CHLORIDE 0.9% 250ML 500 ML IV PRN (10:15)
[2023-12-02] MEDS ORDERED: SODIUM CHLORIDE 0.9% 1000ML 2,000 ML IV PRN (10:15)
[2023-12-03] VITALS (20 sets, daily range): BP systolic 116–158; BP diastolic 42–74; PULSE 47–108; RESP 12–23; TEMP 97.8–98.6; O2SAT 93–100
[2023-12-03] MEDS: APIXAB 2.5 MG TABLET PO SCH (08:32)
[2023-12-03] MEDS ORDERED: CEFTRIAXONE 1 GM VIAL ONE (08:38)
[2023-12-03] MEDS: TRAMADOL HCL 50 MG TAB PO PRN (22:49)
[2023-12-04 00:29] VITALS: BP 126/45; PULSE 50; RESP 18; TEMP 97.8; O2SAT 100
[2023-12-04 04:01] VITALS: RESP 17
[2023-12-04 04:32] VITALS: BP 132/44; PULSE 53; RESP 18; TEMP 98.3; O2SAT 100
[2023-12-04 06:44] VITALS: PULSE 89; RESP 20; O2SAT 97
[2023-12-04 08:01] VITALS: BP 157/60; PULSE 58; RESP 16; TEMP 98.4; O2SAT 98
[2023-12-04 08:45] VITALS: BP 157/60; PULSE 58; RESP 16; TEMP 98.4; O2SAT 98
[2023-12-04] MEDS ORDERED: SODIUM CHLORIDE 0.9% 250ML 250 ML ONE (08:57)
[2023-12-04] MEDS ORDERED: AMIODARONE HCL100 MG PO (10:11)
[2023-12-04] MEDS ORDERED: ELIQUIS2.5 MG PO (10:12)
== END 2023-12-04 11:13 | disposition home or self-care (01) | DRG 308 ==
LOC: ER 11:12 → ERHOLD 14:21 → MED/SURG2 17:09 → ICU 12-01 03:39 → MED/SURG2 12-03 11:32
PROVIDERS: ADMIT Internal Medicine; ATTEND Internal Medicine
PROC: 5A1D70Z Performance of Urinary Filtration, Intermittent, Less than 6 Hours Per Day (ICD-10-PCS; principal; 2023-11-30)
DX: I48.0 Paroxysmal atrial fibrillation (principal); N18.6 End stage renal disease; N39.0 Urinary tract infection, site not specified; I12.0 Hypertensive chronic kidney disease with stage 5 chronic kidney disease or end stage renal disease; D84.821 Immunodeficiency due to drugs; R11.2 Nausea with vomiting, unspecified; D63.1 Anemia in chronic kidney disease; E03.9 Hypothyroidism, unspecified; K21.9 Gastro-esophageal reflux disease without esophagitis; M10.9 Gout, unspecified; K74.60 Unspecified cirrhosis of liver; I27.20 Pulmonary hypertension, unspecified; E11.22 Type 2 diabetes mellitus with diabetic chronic kidney disease; B96.20 Unspecified Escherichia coli [E. coli] as the cause of diseases classified elsewhere; I25.10 Atherosclerotic heart disease of native coronary artery without angina pectoris; M06.9 Rheumatoid arthritis, unspecified; M19.90 Unspecified osteoarthritis, unspecified site; Z99.2 Dependence on renal dialysis; I25.2 Old myocardial infarction; Z79.69 Long term (current) use of other immunomodulators and immunosuppressants; Z95.5 Presence of coronary angioplasty implant and graft; Z79.899 Other long term (current) drug therapy; Z79.84 Long term (current) use of oral hypoglycemic drugs; Z79.85 Long-term (current) use of injectable non-insulin antidiabetic drugs; Z79.890 Hormone replacement therapy; Z79.01 Long term (current) use of anticoagulants; Z20.822 Contact with and (suspected) exposure to COVID-19
CPT/HCPCS: 36415; 71045; 74177; 80048; 80053; 80061; 81001; 82550; 83735; 84443; 84484; 85025; 85610; 85730; 86706; 87086; 87186; 87350; 87400; 87420; 90962; 93005; 93306; 94799; 99284; J0696; J2405; J7030; J7050; Q9967; U0002

== ENCOUNTER 2024-05-21 18:43 | Emergency (ER) | payer MEDICARE, OTHER ==
[~2024-05-21] VITALS: Ht 149.9 cm; Wt 79.8 kg
[~2024-05-21 18:43] MED LIST changes: +AMIODARONE HCL100 MG PO; +ELIQUIS2.5 MG PO
[2024-05-21 20:12] VITALS: TEMP 98.9
[2024-05-21 20:48] LABS: BASOPHILS % 1.6 % (0.0-1.0); EOSINOPHILS # (AUTO) 0.2 (0.0-0.4); HEMATOCRIT 27.7 % (34.2-44.1); LYMPHOCYTES # (AUTO) 0.8 (1.0-3.2); LYMPHOCYTES % 31.8 % (18.0-39.1); MEAN CORPUSCULAR HEMOGLOBIN 34.5 pg (28-32); MEAN CORPUSCULAR HGB CONC 32.5 g/dL (31-35); MEAN CORPUSCULAR VOLUME 106.1 fL (81-99); MONOCYTES # (AUTO) 0.3 (0.2-0.8); MONOCYTES % 11.2 % (4.4-11.3); NEUTROPHILS # (AUTO) 1.3 (2.1-6.9); NEUTROPHILS % 48.4 % (38.7-80.0); PLATELET COUNT 75 x10e3/uL (140-360); RED BLOOD COUNT 2.61 x10e6/uL (3.6-5.1); RED CELL DISTRIBUTION WIDTH 16.4 % (11.7-14.4); WHITE BLOOD COUNT 2.58 x10e3/uL (4.8-10.8)
[2024-05-21 21:08] LABS: ALBUMIN 3.5 g/dL (3.5-5.0); ALBUMIN/GLOBULIN RATIO 0.8 (0.8-2.0); ANION GAP 14.2 mmol/L (8-16); BILIRUBIN,TOTAL 0.5 mg/dL (0.2-1.2); CREATININE, SERUM 4.77 mg/dL (0.57-1.11); POTASSIUM 4.2 mmol/L (3.5-5.1)
[2024-05-21 21:21] LABS: TROPONIN I 0.006 ng/mL (0-0.300)
[2024-05-21] MEDS: DICYCLOMINE HCL 20 MG/2 ML VIAL IM ONE (22:45)
[2024-05-21] MEDS ORDERED: PANTOPRAZOLE SO40 MG PO (23:29)
[2024-05-21 23:31] VITALS: PULSE 57; RESP 16
[2024-05-21 23:50] VITALS: BP 119/45; PULSE 59; RESP 16; TEMP 98.9; O2SAT 98
== END 2024-05-21 23:54 | disposition home or self-care (01) ==
LOC: ER 18:55
DX: R10.11 Right upper quadrant pain (principal); I12.0 Hypertensive chronic kidney disease with stage 5 chronic kidney disease or end stage renal disease; N18.6 End stage renal disease; Z99.2 Dependence on renal dialysis; K21.9 Gastro-esophageal reflux disease without esophagitis; I48.91 Unspecified atrial fibrillation; I50.9 Heart failure, unspecified; M10.9 Gout, unspecified; M06.9 Rheumatoid arthritis, unspecified; E03.9 Hypothyroidism, unspecified; R94.31 Abnormal electrocardiogram [ECG] [EKG]; I25.2 Old myocardial infarction; Z95.5 Presence of coronary angioplasty implant and graft
CPT/HCPCS: 36415; 71045; 74176; 80053; 83690; 84484; 85025; 93005; 99284; J0500; J2470

== ENCOUNTER 2024-06-10 06:11 | Emergency (ER) | payer MEDICARE ==
[~2024-06-10] VITALS: Ht 149.9 cm; Wt 79.8 kg
[~2024-06-10 06:11] MED LIST changes: +PANTOPRAZOLE SO40 MG PO
[2024-06-10 06:15] VITALS: TEMP 98.3
[2024-06-10] MEDS ORDERED: SODIUM CHLORIDE FLUSH 10 ML SYR IV PRN (06:30)
[2024-06-10] MEDS ORDERED: ASPIRIN 325 MG TAB ONE (06:41)
[2024-06-10] MEDS: ASPIRIN 325 MG TAB EC PO STA (06:44)
[2024-06-10] MEDS: NITROGLYCERIN 0.4 MG SUBL SL ONE (06:45)
[2024-06-10 07:20] LABS: BASOPHILS % 1.5 % (0.0-1.0); EOSINOPHILS # (AUTO) 0.1 (0.0-0.4); HEMATOCRIT 29.8 % (34.2-44.1); HEMOGLOBIN 10.1 g/dL (12.0-16.0); LYMPHOCYTES % 37.1 % (18.0-39.1); MEAN CORPUSCULAR HEMOGLOBIN 35.2 pg (28-32); MEAN CORPUSCULAR HGB CONC 33.9 g/dL (31-35); MEAN CORPUSCULAR VOLUME 103.8 fL (81-99); MONOCYTES # (AUTO) 0.2 (0.2-0.8); MONOCYTES % 8.5 % (4.4-11.3); NEUTROPHILS # (AUTO) 1.3 (2.1-6.9); NEUTROPHILS % 48.9 % (38.7-80.0); PLATELET COUNT 75 x10e3/uL (140-360); RED BLOOD COUNT 2.87 x10e6/uL (3.6-5.1); RED CELL DISTRIBUTION WIDTH 15.7 % (11.7-14.4); WHITE BLOOD COUNT 2.72 x10e3/uL (4.8-10.8)
[2024-06-10 07:32] LABS: ALBUMIN 4.2 g/dL (3.5-5.0); ALBUMIN/GLOBULIN RATIO 1.1 (0.8-2.0); ANION GAP 18.5 mmol/L (8-16); BILIRUBIN,TOTAL 0.7 mg/dL (0.2-1.2); CALCIUM 8.9 mg/dL (8.4-10.2); CREATININE, SERUM 5.98 mg/dL (0.57-1.11); POTASSIUM 3.5 mmol/L (3.5-5.1); TOTAL PROTEIN 8.1 g/dL (6.5-8.1)
[2024-06-10 07:38] LABS: TROPONIN I 0.02 ng/mL (0-0.300)
[2024-06-10] MEDS: HYDROCODONE/APAP 10MG-325MG TAB PO ONE (08:34)
[2024-06-10 09:44] VITALS: PULSE 56; RESP 16
[2024-06-10 10:00] VITALS: BP 160/55; PULSE 57; RESP 16; O2SAT 100
[2024-06-17] MEDS ORDERED: PANTOPRAZOLE SO40 MG PO (11:04)
[2024-06-17] MEDS ORDERED: METRONIDAZOLE500 MG PO (11:04)
[2024-06-17] MEDS ORDERED: Sucralfate Susp 1GM/10ML PO (11:04)
== END 2024-06-10 10:00 | disposition home or self-care (01) ==
LOC: ER 06:22
DX: R06.02 Shortness of breath (principal); R07.9 Chest pain, unspecified; I12.0 Hypertensive chronic kidney disease with stage 5 chronic kidney disease or end stage renal disease; E11.22 Type 2 diabetes mellitus with diabetic chronic kidney disease; N18.6 End stage renal disease; Z99.2 Dependence on renal dialysis; I50.9 Heart failure, unspecified; I48.91 Unspecified atrial fibrillation; E03.9 Hypothyroidism, unspecified; M10.9 Gout, unspecified; M06.9 Rheumatoid arthritis, unspecified; R94.31 Abnormal electrocardiogram [ECG] [EKG]; Z95.5 Presence of coronary angioplasty implant and graft
CPT/HCPCS: 36415; 71045; 80053; 84484; 85025; 93005; 94760; 99284

== ENCOUNTER 2024-06-14 02:19 | Inpatient (IN) | payer MEDICARE ==
[~2024-06-14] VITALS: Ht 149.9 cm; Wt 79.9 kg
[2024-06-14] VITALS (8 sets, daily range): BP systolic 129–167; BP diastolic 46–58; PULSE 58–64; RESP 16–22; TEMP 97.8–98.5; O2SAT 93
[2024-06-14 03:14] LABS: BASOPHILS # (AUTO) 0.1 (0.0-0.1); BASOPHILS % 1.5 % (0.0-1.0); EOSINOPHILS # (AUTO) 0.1 (0.0-0.4); EOSINOPHILS % 3.3 % (0.0-6.0); HEMATOCRIT 31.1 % (34.2-44.1); HEMOGLOBIN 10.4 g/dL (12.0-16.0); LYMPHOCYTES # (AUTO) 0.8 (1.0-3.2); LYMPHOCYTES % 22.6 % (18.0-39.1); MEAN CORPUSCULAR HGB CONC 33.4 g/dL (31-35); MEAN CORPUSCULAR VOLUME 104.7 fL (81-99); MONOCYTES # (AUTO) 0.3 (0.2-0.8); NEUTROPHILS # (AUTO) 2.2 (2.1-6.9); NEUTROPHILS % 64.3 % (38.7-80.0); PLATELET COUNT 77 x10e3/uL (140-360); RED BLOOD COUNT 2.97 x10e6/uL (3.6-5.1); RED CELL DISTRIBUTION WIDTH 15.1 % (11.7-14.4); WHITE BLOOD COUNT 3.36 x10e3/uL (4.8-10.8)
[2024-06-14 03:26] LABS: ALBUMIN 3.7 g/dL (3.5-5.0); ALBUMIN/GLOBULIN RATIO 0.9 (0.8-2.0); ANION GAP 16.7 mmol/L (8-16); BILIRUBIN,TOTAL 0.9 mg/dL (0.2-1.2); CALCIUM 9.3 mg/dL (8.4-10.2); CREATININE, SERUM 4.14 mg/dL (0.57-1.11); POTASSIUM 3.7 mmol/L (3.5-5.1); TOTAL PROTEIN 7.8 g/dL (6.5-8.1)
[2024-06-14] MEDS: DICYCLOMINE HCL 20 MG/2 ML VIAL IM ONE (03:28)
[2024-06-14] MEDS: ONDANSETRON HCL INJ 2MG/ML 2ML 2 MG/ML VIAL IV STA (03:28)
[2024-06-14 03:47] LABS: LIPASE 40 U/L (8-78)
[2024-06-14] MEDS: HYDROCODONE/APAP 7.5MG-325MG 1 EA TAB PO ONE (04:06)
[2024-06-14] MEDS ORDERED: ONDANSETRON ODT4 MG SL (04:08)
[2024-06-14] MEDS ORDERED: DICYCLOMINE HCL20 MG PO (04:08)
[2024-06-14 05:03] LABS: BILIRUBIN,URINE NEGATIVE (NEGATIVE); CLARITY,URINE CLEAR (CLEAR); COLOR,URINE YELLOW (YELLOW); GLUCOSE, URINE NEGATIVE (NEGATIVE); KETONES,URINE NEGATIVE (NEGATIVE); LEUKOCYTE ESTERASE ,URINE NEGATIVE (NEGATIVE); NITRITE,URINE NEGATIVE (NEGATIVE); PH,URINE >=9 (5 - 7); PROTEIN,URINE DIPSTICK 2+ (NEGATIVE); URINE UROBILINOGEN 0.2 mg/dL (0.2 - 1)
[2024-06-14] MEDS: HALOPERIDOL LACTATE 5 MG/ML VIAL IV ONE (05:05)
[2024-06-14 05:10] LABS: BACTERIA,URINE FEW /HPF; EPITHELIAL CELLS,URINE FEW /LPF; RBC,URINE >50 /HPF (0-5); WBC,URINE (MAN) 0-5 /HPF (0-5)
[2024-06-14] MEDS ORDERED: DEXTROSE 50% SYRINGE 50 ML IV PRN (05:15)
[2024-06-14] MEDS ORDERED: SODIUM CHLORIDE FLUSH 10 ML SYR INJ PRN (05:15)
[2024-06-14] MEDS ORDERED: HYDRALAZINE HCL 20 MG/ML VIAL IV PRN (05:45)
[2024-06-14] MEDS: METOCLOPRAMIDE HCL 10 MG/2ML VIAL IV SCH (06:00)
[2024-06-14 07:16] LABS: CREATINE KINASE 64 IU/L (29-168); TROPONIN I < 0.05 ng/mL (0.0-0.40)
[2024-06-14] MEDS: INSULIN REGULAR, HUMAN 100 UNIT/1 ML SQ SCH (07:30)
[2024-06-14] MEDS: ONDANSETRON HCL INJ 2MG/ML 2ML 2 MG/ML VIAL IV PRN ×2 (10:30→19:12)
[2024-06-14] MEDS: Morphine 4mg INJECTION 4 MG/ML INJ IV PRN (10:30)
[2024-06-14] MEDS ORDERED: METOPROLOL TARTRATE INJ 1 MG/ML VIAL IV PRN (12:30)
[2024-06-14] MEDS ORDERED: DOCUSATE SODIUM 100 MG CAP PO PRN (12:30)
[2024-06-14] MEDS ORDERED: ALBUTEROL/IPRATROPIUM 3 ML NEB NEB PRN (12:30)
[2024-06-14] MEDS ORDERED: MELATONIN 3 MG TAB PO PRN (12:30)
[2024-06-14] MEDS ORDERED: IOPAMIDOL 370 MG/ML 100 ML INFUS..BTL INJ ONE (12:41)
[2024-06-14] MEDS ORDERED: FUROSEMIDE INJ 10 MG/ML 4 ML VIAL IV SCH (13:00)
[2024-06-14] MEDS ORDERED: HYDROCODONE/APAP 7.5MG-325MG 1 EA TAB PO PRN (13:45)
[2024-06-14] MEDS ORDERED: KETOROLAC TROMETHAMINE 30 MG/ML VIAL IV ONE (14:30)
[2024-06-14 18:03] LABS: CREATINE KINASE 62 IU/L (29-168)
[2024-06-14] MEDS: DONNATAL/LIDOCAINE/MAALOX 30 ML SUSP PO STA (23:00)
[2024-06-14] MEDS ORDERED: LIDOCAINE VISC 2% SOLN 15 ML UDC ONE (23:01)
[2024-06-14] MEDS ORDERED: BELLADONNA ALK/PHENOBARBITAL 5 ML UDC ONE (23:01)
[2024-06-14] MEDS ORDERED: MAGNESIUM/ALUMINUM/SIMETHICONE 30 ML UDC ONE (23:01)
[2024-06-15] VITALS (9 sets, daily range): BP systolic 100–169; BP diastolic 46–73; PULSE 63–74; RESP 17–19; TEMP 98–99; O2SAT 88–96
[2024-06-15] MEDS: SUCRALFATE 1 GM/10 ML SUSP PO STA (00:09)
[2024-06-15 00:32] LABS: % IRON SATURATION 59 % (15-50); IRON 112 ug/dL (50-170); TOTAL IRON BINDING CAPACITY 190 ug/dL (261-478); TRANSFERRIN 136 mg/dL (180-382)
[2024-06-15 04:24] LABS: TROPONIN I < 0.030 ng/mL (0-0.300)
[2024-06-15 05:51] LABS: BASOPHILS # (AUTO) 0.1 (0.0-0.1); BASOPHILS % 0.5 % (0.0-1.0); HEMATOCRIT 30.4 % (34.2-44.1); HEMOGLOBIN 9.9 g/dL (12.0-16.0); LYMPHOCYTES # (AUTO) 0.9 (1.0-3.2); LYMPHOCYTES % 8.1 % (18.0-39.1); MEAN CORPUSCULAR HEMOGLOBIN 35.4 pg (28-32); MEAN CORPUSCULAR HGB CONC 32.6 g/dL (31-35); MEAN CORPUSCULAR VOLUME 108.6 fL (81-99); MONOCYTES # (AUTO) 1.1 (0.2-0.8); MONOCYTES % 9.4 % (4.4-11.3); NEUTROPHILS # (AUTO) 9.5 (2.1-6.9); NEUTROPHILS % 81.7 % (38.7-80.0); PLATELET COUNT 71 x10e3/uL (140-360); RED CELL DISTRIBUTION WIDTH 15.9 % (11.7-14.4); WHITE BLOOD COUNT 11.67 x10e3/uL (4.8-10.8)
[2024-06-15 06:13] LABS: ALBUMIN 3.5 g/dL (3.5-5.0); ALBUMIN/GLOBULIN RATIO 0.9 (0.8-2.0); ANION GAP 17.5 mmol/L (8-16); BILIRUBIN,TOTAL 0.7 mg/dL (0.2-1.2); CALCIUM 8.7 mg/dL (8.4-10.2); CREATININE, SERUM 5.68 mg/dL (0.57-1.11); POTASSIUM 4.5 mmol/L (3.5-5.1); TOTAL PROTEIN 7.4 g/dL (6.5-8.1)
[2024-06-15] MEDS: SUCRALFATE 1 GM/10 ML SUSP PO SCH (07:30)
[2024-06-15] MEDS ORDERED: SODIUM CHLORIDE 0.9% 1000ML 1,000 ML ONE (07:32)
[2024-06-15 11:56] LABS: BAND NEUTROPHILS % (MANUAL) 6 %; HYPOCHROMASIA MODERATE; LYMPHOCYTES % (MANUAL) 9 % (19-48); NEUTROPHILS % (MANUAL) 85 % (40-74); PLATELET ESTIMATE MODERATELY DECREASED; PLATELET MORPHOLOGY COMMENT NORMAL
[2024-06-15] MEDS: DOCUSATE SODIUM 100 MG CAP PO SCH (12:27)
[2024-06-15] MEDS: METRONIDAZOLE 250MG/NS 50ML 50 ML IV SCH (12:28)
[2024-06-15] MEDS: SENNOSIDES 8.6 MG TAB PO SCH (20:51)
[2024-06-16] VITALS (8 sets, daily range): BP systolic 117–158; BP diastolic 50–61; PULSE 61–78; RESP 17–19; TEMP 98.2–98.8; O2SAT 94–100
[2024-06-16 05:56] LABS: CALCIUM 8.5 mg/dL (8.4-10.2); CREATININE, SERUM 4.55 mg/dL (0.57-1.11)
[2024-06-17] VITALS: BP 151/60; PULSE 58; RESP 17; TEMP 98.1; O2SAT 98
[2024-06-17 04:00] VITALS: BP 134/96; PULSE 66; RESP 16; TEMP 98.2; O2SAT 96
[2024-06-17 07:35] VITALS: PULSE 65; RESP 18; O2SAT 92
[2024-06-17 09:08] VITALS: BP 147/53; PULSE 69; RESP 17; TEMP 98; O2SAT 93
[2024-06-17 09:27] VITALS: BP 147/53; PULSE 69; RESP 17; TEMP 98; O2SAT 93
[2024-06-17] MEDS ORDERED: Sucralfate Susp 1GM/10ML PO (11:04)
[2024-06-17] MEDS ORDERED: PANTOPRAZOLE SO40 MG PO (11:04)
[2024-06-17] MEDS ORDERED: METRONIDAZOLE500 MG PO (11:04)
[2024-06-18 05:12] LABS: HEPATITIS B CORE AB TOTAL Negative; HEPATITIS B SURFACE AG (P) Negative
[2024-06-19 07:14] LABS: HEPATITIS B SURFACE AG (P) Negative; HEPATITIS C ANTIBODY Non Reactive
== END 2024-06-17 11:32 | disposition home or self-care (01) | DRG 391 ==
LOC: ER 02:25 → ERHOLD 05:03 → MED/SURG3 06:10 → OBSVTOIN 06-16 08:25
PROVIDERS: ADMIT Internal Medicine; ATTEND Internal Medicine
PROC: 5A1D70Z Performance of Urinary Filtration, Intermittent, Less than 6 Hours Per Day (ICD-10-PCS; principal; 2024-06-15)
DX: R10.13 Epigastric pain (principal); I12.0 Hypertensive chronic kidney disease with stage 5 chronic kidney disease or end stage renal disease; E11.22 Type 2 diabetes mellitus with diabetic chronic kidney disease; N18.6 End stage renal disease; D61.818 Other pancytopenia; K50.00 Crohn's disease of small intestine without complications; K74.60 Unspecified cirrhosis of liver; I48.0 Paroxysmal atrial fibrillation; I25.10 Atherosclerotic heart disease of native coronary artery without angina pectoris; E03.9 Hypothyroidism, unspecified; Z99.2 Dependence on renal dialysis; K21.9 Gastro-esophageal reflux disease without esophagitis; E78.5 Hyperlipidemia, unspecified; Z11.52 Encounter for screening for COVID-19; I86.4 Gastric varices; K59.00 Constipation, unspecified; G89.4 Chronic pain syndrome; M19.90 Unspecified osteoarthritis, unspecified site; M54.9 Dorsalgia, unspecified; M10.9 Gout, unspecified; M06.9 Rheumatoid arthritis, unspecified; R11.2 Nausea with vomiting, unspecified; Z79.01 Long term (current) use of anticoagulants; Z79.4 Long term (current) use of insulin; Z79.890 Hormone replacement therapy; Z95.5 Presence of coronary angioplasty implant and graft; I25.2 Old myocardial infarction; Z87.891 Personal history of nicotine dependence
CPT/HCPCS: 36415; 74176; 74177; 80048; 80053; 81001; 82550; 82607; 82746; 82948; 83540; 83690; 84466; 84484; 85025; 85045; 86704; 86706; 87086; 87340; 93005; 94799; 99284; G0378; J0360; J1630; J1885; J2270; J2405; J2470; J2765; J7030; Q9967; U0002

== ENCOUNTER 2024-07-01 04:04 | Emergency (ER) | payer MEDICARE ==
[~2024-07-01] VITALS: Ht 149.9 cm; Wt 79.8 kg
[~2024-07-01 04:04] MED LIST changes: +DICYCLOMINE HCL20 MG PO; +ONDANSETRON ODT4 MG SL; +Sucralfate Susp 1GM/10ML PO
[2024-07-01 04:12] VITALS: TEMP 98.6
[2024-07-01] MEDS: HYDROCODONE/APAP 5MG-325MG TAB PO STA (04:23)
[2024-07-01 05:45] VITALS: PULSE 53; RESP 15; O2SAT 96
[2024-07-01] MEDS ORDERED: ULTRAM 50MG50 MG PO (06:06)
== END 2024-07-01 06:10 | disposition home or self-care (01) ==
LOC: ER 04:08
DX: M25.562 Pain in left knee (principal); M17.12 Unilateral primary osteoarthritis, left knee; M25.462 Effusion, left knee; I12.0 Hypertensive chronic kidney disease with stage 5 chronic kidney disease or end stage renal disease; E11.22 Type 2 diabetes mellitus with diabetic chronic kidney disease; N18.6 End stage renal disease; Z99.2 Dependence on renal dialysis; I50.9 Heart failure, unspecified; E78.5 Hyperlipidemia, unspecified; I48.91 Unspecified atrial fibrillation; E03.9 Hypothyroidism, unspecified; K21.9 Gastro-esophageal reflux disease without esophagitis; M10.9 Gout, unspecified; M06.9 Rheumatoid arthritis, unspecified; I25.2 Old myocardial infarction
CPT/HCPCS: 99284

== ENCOUNTER 2024-07-26 07:56 | Outpatient (RCR) | payer MEDICARE ==
[~2024-07-26 07:56] MED LIST changes: +ULTRAM 50MG50 MG PO
== END 2024-07-29 ==
LOC: PT 07:56
PROVIDERS: ATTEND Physician Assistant
DX: M17.0 Bilateral primary osteoarthritis of knee (principal); M62.81 Muscle weakness (generalized); M25.562 Pain in left knee; R26.89 Other abnormalities of gait and mobility

== ENCOUNTER 2024-08-26 06:52 | Outpatient (RCR) | payer MEDICARE | END 2024-08-29 | LOC: PT 06:52 | PROVIDERS: ATTEND Physician Assistant | DX: M17.0 Bilateral primary osteoarthritis of knee (principal); M62.81 Muscle weakness (generalized); M25.562 Pain in left knee; R26.89 Other abnormalities of gait and mobility ==

== ENCOUNTER 2024-08-30 06:16 | Outpatient (RCR) | payer MEDICARE ==
[2024-09-15] MEDS ORDERED: LOSARTAN POTASS25 MG PO (23:42)
[2024-09-16] MEDS ORDERED: NIFEDIPINE ER30 MG PO (00:20)
[2024-09-16] MEDS ORDERED: OZEMPIC0.25 MG/02 (00:20)
[2024-09-16] MEDS ORDERED: BETIMOL5 M1 (00:27)
[2024-09-16] MEDS ORDERED: EMLA (00:31)
[2024-09-16] MEDS ORDERED: RENVELA0.8 GM PO (00:56)
[2024-09-17] MEDS ORDERED: augmentin PO (15:29)
== END 2024-09-28 ==
LOC: PT 06:16
PROVIDERS: ATTEND Physician Assistant
DX: M17.0 Bilateral primary osteoarthritis of knee (principal); M62.81 Muscle weakness (generalized); M25.562 Pain in left knee; R26.89 Other abnormalities of gait and mobility

== ENCOUNTER 2024-09-15 14:32 | Observation (INO) | payer MEDICARE ==
[~2024-09-15] VITALS: Ht 149.9 cm; Wt 74.5 kg
[2024-09-15 15:08] LABS: BASOPHILS % 0.5 % (0.0-1.0); EOSINOPHILS % 0.3 % (0.0-6.0); HEMATOCRIT 29.3 % (34.2-44.1); HEMOGLOBIN 9.6 g/dL (12.0-16.0); LYMPHOCYTES # (AUTO) 0.8 (1.0-3.2); LYMPHOCYTES % 12.8 % (18.0-39.1); MEAN CORPUSCULAR HEMOGLOBIN 33.3 pg (28-32); MEAN CORPUSCULAR HGB CONC 32.8 g/dL (31-35); MEAN CORPUSCULAR VOLUME 101.7 fL (81-99); MONOCYTES # (AUTO) 0.4 (0.2-0.8); MONOCYTES % 6.8 % (4.4-11.3); NEUTROPHILS # (AUTO) 4.8 (2.1-6.9); NEUTROPHILS % 78.6 % (38.7-80.0); PLATELET COUNT 101 x10e3/uL (140-360); RED BLOOD COUNT 2.88 x10e6/uL (3.6-5.1); RED CELL DISTRIBUTION WIDTH 15.5 % (11.7-14.4); WHITE BLOOD COUNT 6.15 x10e3/uL (4.8-10.8)
[2024-09-15 15:26] LABS: ALBUMIN 2.6 g/dL (3.5-5.0); ALBUMIN/GLOBULIN RATIO 0.5 (0.8-2.0); ANION GAP 17.5 mmol/L (8-16); BILIRUBIN,TOTAL 0.6 mg/dL (0.2-1.2); CALCIUM 8.5 mg/dL (8.4-10.2); CREATININE, SERUM 7.45 mg/dL (0.57-1.11); POTASSIUM 3.5 mmol/L (3.5-5.1); TOTAL PROTEIN 7.4 g/dL (6.5-8.1)
[2024-09-15] MEDS: ACETAMINOPHEN 325 MG TAB PO ONE (15:42)
[2024-09-15] MEDS: AMOXICILLIN 250 MG CAP PO STA (15:43)
[2024-09-15] MEDS: AMOXICILLIN 250 MG CAP PO ONE (15:54)
[2024-09-15] MEDS ORDERED: ONDANSETRON HCL INJ 2MG/ML 2ML 2 MG/ML VIAL IV STA (16:09)
[2024-09-15] MEDS ORDERED: ONDANSETRON HCL INJ 2MG/ML 2ML 2 MG/ML VIAL IV PRN (16:15)
[2024-09-15] MEDS ORDERED: Morphine 4mg INJECTION 4 MG/ML INJ IV ONE (16:15)
[2024-09-15 16:20] VITALS: PULSE 73; RESP 16; TEMP 99.2
[2024-09-15] MEDS: Morphine 4mg INJECTION 4 MG/ML INJ IV PRN (17:22)
[2024-09-15] MEDS: SODIUM CHLORIDE 0.9% 1000ML 1,000 ML IV SCH ×2 (17:55→20:49)
[2024-09-15] MEDS ORDERED: BUPIVACAINE HCL 0.5% INJ 30 ML VIAL INJ ONE (18:12)
[2024-09-15] MEDS ORDERED: ROCURONIUM BROMIDE 1 ML IV ONE (18:36)
[2024-09-15] MEDS ORDERED: FENTANYL CITRATE/PF 100MCG/2 ML INJ ONE (18:36)
[2024-09-15] MEDS ORDERED: LIDOCAINE HCL 2% LOCAL INJ 5 ML SDV VIAL INJ ONE (18:36)
[2024-09-15] MEDS ORDERED: ETOMIDATE 40 MG/ 20ML VIAL IV ONE (18:36)
[2024-09-15] MEDS ORDERED: SUCCINYLCHOLINE CHLORIDE 20 MG/ML 10ML VIAL ONE (18:36)
[2024-09-15] MEDS ORDERED: METOCLOPRAMIDE HCL 10 MG/2ML VIAL ONE (19:19)
[2024-09-15] MEDS ORDERED: ONDANSETRON HCL INJ 2MG/ML 2ML 2 MG/ML VIAL ONE (19:19)
[2024-09-15] MEDS ORDERED: ACETAMINOPHEN 1000 MG/100 ML 100 ML IV ONE (19:21)
[2024-09-15] MEDS ORDERED: KETOROLAC TROMETHAMINE 30 MG/ML VIAL ONE (19:21)
[2024-09-15] MEDS ORDERED: NEOSTIGMINE 1 MG/ML 10ML VIAL ONE (19:24)
[2024-09-15] MEDS ORDERED: HYDROCODONE/APAP 5MG-325MG TAB PO PRN (19:30)
[2024-09-15 20:00] VITALS: BP 110/42; PULSE 57; RESP 16; TEMP 98.3; O2SAT 100
[2024-09-15] MEDS ORDERED: PIPERACILLIN/TAZOBACTAM SOD 2.25 GM VIAL ONE (21:15)
[2024-09-15 23:30] VITALS: PULSE 55; RESP 16; O2SAT 100
[2024-09-15] MEDS ORDERED: LOSARTAN POTASS25 MG PO (23:42)
[2024-09-16] VITALS (11 sets, daily range): BP systolic 90–113; BP diastolic 39–46; PULSE 48–57; RESP 16–18; TEMP 97.5–99.8; O2SAT 94–100
[2024-09-16] MEDS ORDERED: NIFEDIPINE ER30 MG PO (00:20)
[2024-09-16] MEDS ORDERED: OZEMPIC0.25 MG/02 (00:20)
[2024-09-16] MEDS ORDERED: BETIMOL5 M1 (00:27)
[2024-09-16] MEDS ORDERED: EMLA (00:31)
[2024-09-16] MEDS ORDERED: RENVELA0.8 GM PO (00:56)
[2024-09-16 08:28] LABS: BASOPHILS % 0.6 % (0.0-1.0); EOSINOPHILS # (AUTO) 0.1 (0.0-0.4); EOSINOPHILS % 1.8 % (0.0-6.0); HEMATOCRIT 25.9 % (34.2-44.1); HEMOGLOBIN 8.3 g/dL (12.0-16.0); LYMPHOCYTES # (AUTO) 0.7 (1.0-3.2); LYMPHOCYTES % 14.2 % (18.0-39.1); MEAN CORPUSCULAR HEMOGLOBIN 33.2 pg (28-32); MEAN CORPUSCULAR VOLUME 103.6 fL (81-99); MONOCYTES # (AUTO) 0.3 (0.2-0.8); MONOCYTES % 6.2 % (4.4-11.3); NEUTROPHILS # (AUTO) 3.9 (2.1-6.9); NEUTROPHILS % 76.8 % (38.7-80.0); RED CELL DISTRIBUTION WIDTH 15.9 % (11.7-14.4); WHITE BLOOD COUNT 5.01 x10e3/uL (4.8-10.8)
[2024-09-16 08:36] LABS: PLATELET COUNT 85 x10e3/uL (140-360)
[2024-09-16 08:38] LABS: INR 1.14; PROTHROMBIN TIME 15.3 seconds (11.9-14.5)
[2024-09-16 08:50] LABS: ALBUMIN 2.1 g/dL (3.5-5.0); ALBUMIN/GLOBULIN RATIO 0.5 (0.8-2.0); ANION GAP 16.6 mmol/L (8-16); BILIRUBIN,TOTAL 0.6 mg/dL (0.2-1.2); CALCIUM 7.6 mg/dL (8.4-10.2); CREATININE, SERUM 7.91 mg/dL (0.57-1.11); POTASSIUM 3.6 mmol/L (3.5-5.1)
[2024-09-16] MEDS: CARVEDILOL 12.5 MG TAB PO SCH (09:00)
[2024-09-16] MEDS: AMLODIPINE BESYLATE 5 MG TAB PO SCH (09:00)
[2024-09-16] MEDS: SODIUM BICARBONATE 650 MG TAB PO SCH (09:10)
[2024-09-16] MEDS: AMIODARONE HCL 200 MG TAB PO SCH (09:10)
[2024-09-16] MEDS: LEVOTHYROXINE SODIUM 112 MCG TAB PO SCH (09:10)
[2024-09-16] MEDS: ONDANSETRON HCL INJ 2MG/ML 2ML 2 MG/ML VIAL IV PRN (10:27)
[2024-09-16] MEDS: SULFASALAZINE 500 MG TAB PO SCH (10:27)
[2024-09-16] MEDS: ACETAMINOPHEN 325 MG TAB PO PRN (17:06)
[2024-09-17 03:34] VITALS: BP 110/37; PULSE 57; RESP 18; TEMP 98.6; O2SAT 99
[2024-09-17 06:10] LABS: BASOPHILS % 0.5 % (0.0-1.0); EOSINOPHILS # (AUTO) 0.3 (0.0-0.4); EOSINOPHILS % 3.7 % (0.0-6.0); HEMATOCRIT 25.6 % (34.2-44.1); HEMOGLOBIN 8.4 g/dL (12.0-16.0); LYMPHOCYTES # (AUTO) 0.9 (1.0-3.2); LYMPHOCYTES % 12.1 % (18.0-39.1); MEAN CORPUSCULAR HEMOGLOBIN 33.2 pg (28-32); MEAN CORPUSCULAR HGB CONC 32.8 g/dL (31-35); MEAN CORPUSCULAR VOLUME 101.2 fL (81-99); MONOCYTES # (AUTO) 0.5 (0.2-0.8); MONOCYTES % 6.2 % (4.4-11.3); NEUTROPHILS # (AUTO) 5.8 (2.1-6.9); NEUTROPHILS % 76.4 % (38.7-80.0); PLATELET COUNT 99 x10e3/uL (140-360); RED BLOOD COUNT 2.53 x10e6/uL (3.6-5.1); RED CELL DISTRIBUTION WIDTH 15.9 % (11.7-14.4); WHITE BLOOD COUNT 7.61 x10e3/uL (4.8-10.8)
[2024-09-17 06:31] LABS: ANION GAP 16.6 mmol/L (8-16); CREATININE, SERUM 8.67 mg/dL (0.57-1.11); POTASSIUM 3.6 mmol/L (3.5-5.1)
[2024-09-17 07:27] VITALS: PULSE 62; RESP 16; O2SAT 96
[2024-09-17 08:15] VITALS: BP 118/41; PULSE 56; RESP 18; TEMP 98.3; O2SAT 100
[2024-09-17] MEDS ORDERED: SODIUM CHLORIDE 0.9% 1000ML 2,000 ML IV PRN (10:15)
[2024-09-17 12:05] VITALS: BP 143/64; PULSE 55; RESP 17; TEMP 98.2; O2SAT 100
[2024-09-17] MEDS ORDERED: augmentin PO (15:29)
[2024-09-17 20:02] VITALS: PULSE 56; RESP 16; O2SAT 100
== END 2024-09-17 16:24 | disposition home or self-care (01) ==
LOC: ER 14:42 → ERHOLD 16:13 → MED/SURG3 16:55
PROVIDERS: ADMIT Internal Medicine; ATTEND Internal Medicine
DX: K35.32 Acute appendicitis with perforation, localized peritonitis, and gangrene, without abscess (principal); H66.92 Otitis media, unspecified, left ear; E11.22 Type 2 diabetes mellitus with diabetic chronic kidney disease; I13.2 Hypertensive heart and chronic kidney disease with heart failure and with stage 5 chronic kidney disease, or end stage renal disease; I50.9 Heart failure, unspecified; N18.6 End stage renal disease; I48.91 Unspecified atrial fibrillation; I25.10 Atherosclerotic heart disease of native coronary artery without angina pectoris; I25.2 Old myocardial infarction; E78.5 Hyperlipidemia, unspecified; E03.9 Hypothyroidism, unspecified; M06.9 Rheumatoid arthritis, unspecified; M10.9 Gout, unspecified; K21.9 Gastro-esophageal reflux disease without esophagitis; Z79.02 Long term (current) use of antithrombotics/antiplatelets; Z79.85 Long-term (current) use of injectable non-insulin antidiabetic drugs; Z79.899 Other long term (current) drug therapy; Z99.2 Dependence on renal dialysis; Z68.33 Body mass index [BMI] 33.0-33.9, adult; Z95.5 Presence of coronary angioplasty implant and graft
CPT/HCPCS: 36415 ×3; 44970; 74176; 80048; 80053 ×2; 83690; 85025 ×3; 85610; 85730; 88304; 94799 ×3; 97161; 99284; G0378 ×3; J0131; J0330; J1885; J2003; J2270; J2405 ×2; J2543 ×3; J2710; J2765; J3010; J7030 ×2

== ENCOUNTER 2024-11-23 08:59 | Emergency (ER) | payer MEDICARE ==
[~2024-11-23] VITALS: Ht 149.9 cm; Wt 74.4 kg
[~2024-11-23 08:59] MED LIST changes: +BETIMOL5 M1; +EMLA; +LOSARTAN POTASS25 MG PO; +NIFEDIPINE ER30 MG PO; +OZEMPIC0.25 MG/02; +RENVELA0.8 GM PO; +augmentin PO
[2024-11-23 09:19] VITALS: TEMP 97.8
[2024-11-23 09:45] LABS: BASOPHILS % 1.1 % (0.0-1.0); EOSINOPHILS # (AUTO) 0.1 (0.0-0.4); EOSINOPHILS % 3.6 % (0.0-6.0); HEMATOCRIT 39.3 % (34.2-44.1); HEMOGLOBIN 12.5 g/dL (12.0-16.0); LYMPHOCYTES # (AUTO) 0.8 (1.0-3.2); LYMPHOCYTES % 29.6 % (18.0-39.1); MEAN CORPUSCULAR HEMOGLOBIN 35.2 pg (28-32); MEAN CORPUSCULAR HGB CONC 31.8 g/dL (31-35); MEAN CORPUSCULAR VOLUME 110.7 fL (81-99); MONOCYTES # (AUTO) 0.2 (0.2-0.8); NEUTROPHILS # (AUTO) 1.6 (2.1-6.9); NEUTROPHILS % 57.7 % (38.7-80.0); PLATELET COUNT 63 x10e3/uL (140-360); RED BLOOD COUNT 3.55 x10e6/uL (3.6-5.1); RED CELL DISTRIBUTION WIDTH 15.1 % (11.7-14.4); WHITE BLOOD COUNT 2.74 x10e3/uL (4.8-10.8)
[2024-11-23] MEDS: ONDANSETRON HCL INJ 2MG/ML 2ML 2 MG/ML VIAL IV PRN (10:05)
[2024-11-23] MEDS: FENTANYL CITRATE/PF 100MCG/2 ML INJ IV PRN (10:05)
[2024-11-23 10:31] LABS: ALBUMIN 3.6 g/dL (3.5-5.0); ALBUMIN/GLOBULIN RATIO 0.8 (0.8-2.0); ANION GAP 25.3 mmol/L (8-16); BILIRUBIN,TOTAL 3.7 mg/dL (0.2-1.2); CALCIUM 8.7 mg/dL (8.4-10.2); CREATININE, SERUM 7.92 mg/dL (0.57-1.11); TOTAL PROTEIN 8.4 g/dL (6.5-8.1)
[2024-11-23 10:33] LABS: POTASSIUM 5.3 mmol/L (3.5-5.1)
[2024-11-23] MEDS ORDERED: IOPAMIDOL 370 MG/ML 100 ML INFUS..BTL INJ ONE (10:36)
[2024-11-23] MEDS: Morphine 4mg INJECTION 4 MG/ML INJ IV ONE (11:17)
[2024-11-23] MEDS: HALOPERIDOL LACTATE 5 MG/ML VIAL IV ONE (11:41)
[2024-11-23 12:20] LABS: CLARITY,URINE CLEAR (CLEAR); COLOR,URINE YELLOW (YELLOW); LEUKOCYTE ESTERASE ,URINE NEGATIVE (NEGATIVE); NITRITE,URINE NEGATIVE (NEGATIVE); PH,URINE 8.5 (5 - 7)
[2024-11-23 12:21] LABS: BILIRUBIN,URINE NEGATIVE (NEGATIVE); GLUCOSE, URINE 2+ (NEGATIVE); KETONES,URINE TRACE (NEGATIVE); PROTEIN,URINE DIPSTICK >=300 (NEGATIVE); URINE UROBILINOGEN 0.2 mg/dL (0.2 - 1)
[2024-11-23 12:28] LABS: BACTERIA,URINE FEW /HPF; EPITHELIAL CELLS,URINE FEW /LPF; RBC,URINE 21-50 /HPF (0-5)
[2024-11-23 13:51] VITALS: PULSE 66; RESP 14
[2024-11-23] MEDS: CALCIUM GLUC 1 G/50 ML NACL 50 ML IV SCH (13:53)
[2024-11-23] MEDS: SODIUM BICARBONATE 8.4% INJ 50 ML SYR IV STA (13:53)
[2024-11-23 13:56] VITALS: PULSE 74; RESP 20; O2SAT 96
[2024-11-23] MEDS: ALBUTEROL SULF 0.083% NEB SOLN 3 ML NEB NEB STA (13:56)
[2024-11-23] MEDS: DEXTROSE 50% SYRINGE 50 ML IV STA (13:56)
[2024-11-23] MEDS: INSULIN REGULAR, HUMAN 100 UNIT/1 ML IV ONE (13:58)
== END 2024-11-23 15:40 | disposition other institution (70) ==
LOC: ER 09:09
DX: R10.11 Right upper quadrant pain (principal); I12.0 Hypertensive chronic kidney disease with stage 5 chronic kidney disease or end stage renal disease; E11.22 Type 2 diabetes mellitus with diabetic chronic kidney disease; E11.65 Type 2 diabetes mellitus with hyperglycemia; N18.6 End stage renal disease; Z99.2 Dependence on renal dialysis; Q27.39 Arteriovenous malformation, other site; R11.2 Nausea with vomiting, unspecified; I48.91 Unspecified atrial fibrillation; E78.5 Hyperlipidemia, unspecified; E03.9 Hypothyroidism, unspecified; I25.10 Atherosclerotic heart disease of native coronary artery without angina pectoris; D64.9 Anemia, unspecified; M06.9 Rheumatoid arthritis, unspecified; M10.9 Gout, unspecified; M54.9 Dorsalgia, unspecified; G89.29 Other chronic pain
CPT/HCPCS: 36415; 74177; 80053; 81001; 82948; 83690; 84484; 85025; 93005; 99284; J1630; J2270; J2405; J3010; J7799; Q9967

== ENCOUNTER 2025-03-18 10:02 | Inpatient (IN) | payer MEDICARE ==
[~2025-03-18] VITALS: Ht 149.9 cm; Wt 76.3 kg
[2025-03-18 10:20] VITALS: TEMP 98
[2025-03-18 10:38] LABS: BASOPHILS % 1.4 % (0.0-1.0); EOSINOPHILS # (AUTO) 0.2 (0.0-0.4); EOSINOPHILS % 7.5 % (0.0-6.0); HEMATOCRIT 35.5 % (34.2-44.1); HEMOGLOBIN 11.9 g/dL (12.0-16.0); LYMPHOCYTES # (AUTO) 1.2 (1.0-3.2); LYMPHOCYTES % 43.4 % (18.0-39.1); MEAN CORPUSCULAR HEMOGLOBIN 36.2 pg (28-32); MEAN CORPUSCULAR HGB CONC 33.5 g/dL (31-35); MEAN CORPUSCULAR VOLUME 107.9 fL (81-99); MONOCYTES # (AUTO) 0.2 (0.2-0.8); MONOCYTES % 6.8 % (4.4-11.3); NEUTROPHILS # (AUTO) 1.1 (2.1-6.9); NEUTROPHILS % 40.5 % (38.7-80.0); PLATELET COUNT 87 x10e3/uL (140-360); RED BLOOD COUNT 3.29 x10e6/uL (3.6-5.1); WHITE BLOOD COUNT 2.81 x10e3/uL (4.8-10.8)
[2025-03-18] MEDS: DILTIAZEM HCL 5 MG/ML 5 ML VIAL IV ONE (11:03)
[2025-03-18] MEDS: MAGNESIUM/ALUMINUM/SIMETHICONE 30 ML UDC PO ONE (11:04)
[2025-03-18 11:08] LABS: ANION GAP 18.4 mmol/L (8-16); CALCIUM 8.3 mg/dL (8.4-10.2); CREATININE, SERUM 4.46 mg/dL (0.57-1.11)
[2025-03-18 11:14] LABS: POTASSIUM 3.4 mmol/L (3.5-5.1)
[2025-03-18 11:15] LABS: TROPONIN I 0.033 ng/mL (0-0.300)
[2025-03-18] MEDS ORDERED: SODIUM CHLORIDE 0.9% 250ML 250 ML ONE (11:50)
[2025-03-18] MEDS: SODIUM CHLORIDE 0.9% 250ML 250 ML IV STA (12:03)
[2025-03-18 15:10] LABS: TROPONIN I 1.033 ng/mL (0-0.300)
[2025-03-18] MEDS: SODIUM CHLORIDE 0.9% 1000ML 1,000 ML IV SCH (16:34)
[2025-03-18] MEDS: ENOXAPARIN INJ 80 MG/0.8 ML SYR SC STA (16:34)
[2025-03-18 17:30] VITALS: PULSE 66; RESP 15
[2025-03-18] MEDS: Morphine 4mg INJECTION 4 MG/ML INJ IV PRN (21:25)
[2025-03-18 21:46] VITALS: BP 131/74; PULSE 62; RESP 18; TEMP 98.1; O2SAT 98
[2025-03-19] VITALS (10 sets, daily range): BP systolic 118–160; BP diastolic 46–76; PULSE 50–82; RESP 16–18; TEMP 97–98.3; O2SAT 94–100
[2025-03-19] MEDS: ASPIRIN 325 MG TAB EC PO SCH (09:01)
[2025-03-19] MEDS: CARVEDILOL 12.5 MG TAB PO SCH (09:57)
[2025-03-19] MEDS: LOSARTAN POTASSIUM 25 MG TAB PO SCH (09:57)
[2025-03-19] MEDS: AMLODIPINE BESYLATE 5 MG TAB PO SCH (09:57)
[2025-03-19] MEDS ORDERED: ACETAMINOPHEN 325 MG TAB PO PRN (10:45)
[2025-03-19] MEDS ORDERED: ALBUTEROL/IPRATROPIUM 3 ML NEB NEB PRN (10:45)
[2025-03-19] MEDS ORDERED: CYCLOBENZAPRINE HCL 10 MG TAB PO PRN (10:45)
[2025-03-19] MEDS ORDERED: METOPROLOL TARTRATE INJ 1 MG/ML VIAL IV PRN (10:45)
[2025-03-19] MEDS ORDERED: MELATONIN 3 MG TAB PO PRN (10:45)
[2025-03-19] MEDS ORDERED: TRAMADOL HCL 50 MG TAB PO PRN (12:00)
[2025-03-19] MEDS: ONDANSETRON HCL INJ 2MG/ML 2ML 2 MG/ML VIAL IV PRN (12:35)
[2025-03-19] MEDS: SODIUM BICARBONATE 650 MG TAB PO SCH (12:37)
[2025-03-19] MEDS: ATORVASTATIN 10 MG TAB PO SCH (12:37)
[2025-03-19] MEDS: ALLOPURINOL 100 MG TAB PO SCH (12:37)
[2025-03-19] MEDS: SUCRALFATE 1 GM/10 ML SUSP PO SCH (12:37)
[2025-03-19] MEDS: PANTOPRAZOLE SOD 40 MG TABEC PO SCH (12:37)
[2025-03-19] MEDS: AMIODARONE HCL 200 MG TAB PO SCH (12:37)
[2025-03-19] MEDS ORDERED: HEPARIN SOD/DEXTROSE 5% 25000 UNIT/250 ML BAG IV SCH (14:15)
[2025-03-19] MEDS ORDERED: APIXABAN 2.5 MG TABLET PO SCH (17:00)
[2025-03-19] MEDS: HEPARIN 25,000 UNIT/D5W 250ML 250 ML IV SCH (17:52)
[2025-03-20] VITALS (20 sets, daily range): BP systolic 122–146; BP diastolic 42–68; PULSE 48–74; RESP 10–20; TEMP 97.5–98.3; O2SAT 90–99
[2025-03-20 03:02] LABS: INR 1.07; PROTHROMBIN TIME 14.9 seconds (11.9-14.5)
[2025-03-20 03:04] LABS: PARTIAL THROMBOPLASTIN TIME 78.2 seconds (23.8-35.5)
[2025-03-20] MEDS: LEVOTHYROXINE SODIUM 100 MCG TAB PO SCH (06:00)
[2025-03-20 06:37] LABS: BASOPHILS # (AUTO) 0.1 (0.0-0.1); BASOPHILS % 1.6 % (0.0-1.0); EOSINOPHILS # (AUTO) 0.2 (0.0-0.4); EOSINOPHILS % 7.2 % (0.0-6.0); HEMATOCRIT 34.5 % (34.2-44.1); HEMOGLOBIN 11.2 g/dL (12.0-16.0); LYMPHOCYTES # (AUTO) 1.1 (1.0-3.2); LYMPHOCYTES % 35.6 % (18.0-39.1); MEAN CORPUSCULAR HEMOGLOBIN 36.4 pg (28-32); MEAN CORPUSCULAR HGB CONC 32.5 g/dL (31-35); MONOCYTES # (AUTO) 0.3 (0.2-0.8); MONOCYTES % 9.7 % (4.4-11.3); NEUTROPHILS # (AUTO) 1.5 (2.1-6.9); NEUTROPHILS % 45.9 % (38.7-80.0); PLATELET COUNT 65 x10e3/uL (140-360); RED BLOOD COUNT 3.08 x10e6/uL (3.6-5.1)
[2025-03-20] MEDS: TIMOLOL MALEATE 0.5% OPTH DRP 5 ML BTL OP SCH (06:49)
[2025-03-20 07:08] LABS: ALBUMIN 2.9 g/dL (3.5-5.0); ALBUMIN/GLOBULIN RATIO 0.7 (0.8-2.0); ANION GAP 19.1 mmol/L (8-16); BILIRUBIN,TOTAL 0.5 mg/dL (0.2-1.2); CALCIUM 7.8 mg/dL (8.4-10.2); CREATININE, SERUM 7.3 mg/dL (0.57-1.11); TOTAL PROTEIN 6.9 g/dL (6.5-8.1)
[2025-03-20 07:13] LABS: POTASSIUM 5.1 mmol/L (3.5-5.1)
[2025-03-20] MEDS: DEXTROSE 50% SYRINGE 50 ML IV PRN (09:40)
[2025-03-20] MEDS ORDERED: SODIUM CHLORIDE 0.9% 1000ML 2,000 ML IV PRN (10:30)
[2025-03-20] MEDS ORDERED: ALBUMIN 25% 12.5GM 0.25 GM/ML BTL IV PRN (10:30)
[2025-03-20] MEDS: HEPARIN SOD/SOD CHLORIDE 2,000 ML ONE (16:52)
[2025-03-20] MEDS: HEPARIN SOD (PORCINE) 1000 UNIT/ML 30ML ONE (16:52)
[2025-03-20] MEDS: NITROGLYCERIN/D5W 200 MCG/ML 250 ML ONE (16:52)
[2025-03-20] MEDS: FENTANYL CITRATE/PF 100MCG/2 ML INJ ONE (16:53)
[2025-03-20] MEDS: VERAPAMIL HCL 2.5 MG/ML 2 ML VIAL ONE (16:53)
[2025-03-20] MEDS: LIDOCAINE HCL 2% LOCAL 20 ML VIAL ONE (16:53)
[2025-03-20] MEDS: IOPAMIDOL 370 MG/ML 100 ML INFUS..BTL INJ ONE (16:53)
[2025-03-20] MEDS: MIDAZOLAM HCL 2 MG/2 ML VIAL ONE (16:54)
[2025-03-20] MEDS: APIXABAN 2.5 MG TABLET PO SCH (17:00)
[2025-03-21] VITALS: BP 121/73; PULSE 61; RESP 20; TEMP 97.7; O2SAT 100
[2025-03-21 04:00] VITALS: BP 124/54; PULSE 63; RESP 18; TEMP 98.2; O2SAT 98
[2025-03-21 07:43] VITALS: PULSE 75; RESP 16; O2SAT 96
[2025-03-21 08:35] VITALS: BP 107/65; PULSE 61; RESP 18; TEMP 97.9; O2SAT 93
[2025-03-21 09:35] VITALS: BP 107/65; PULSE 61; RESP 18; TEMP 97.9; O2SAT 93
[2025-03-22 12:09] LABS: HEPATITIS B SURFACE AB QUANT 6.1 mIU/mL (Immunity>10); HEPATITIS B SURFACE AG (P) Negative (Negative)
== END 2025-03-21 11:35 | disposition home or self-care (01) | DRG 280 ==
LOC: ER 10:12 → ERHOLD 15:40 → MED/SURG2 20:43
PROVIDERS: ADMIT Internal Medicine; ATTEND Internal Medicine
PROC: 4A023N7 Measurement of Cardiac Sampling and Pressure, Left Heart, Percutaneous Approach (ICD-10-PCS; principal; 2025-03-20)
PROC: B2111ZZ Fluoroscopy of Multiple Coronary Arteries using Low Osmolar Contrast (ICD-10-PCS; 2025-03-20)
PROC: 5A1D70Z Performance of Urinary Filtration, Intermittent, Less than 6 Hours Per Day (ICD-10-PCS; 2025-03-20)
DX: I21.4 Non-ST elevation (NSTEMI) myocardial infarction (principal); N18.6 End stage renal disease; I13.2 Hypertensive heart and chronic kidney disease with heart failure and with stage 5 chronic kidney disease, or end stage renal disease; I50.22 Chronic systolic (congestive) heart failure; I48.20 Chronic atrial fibrillation, unspecified; E11.22 Type 2 diabetes mellitus with diabetic chronic kidney disease; D63.1 Anemia in chronic kidney disease; Z99.2 Dependence on renal dialysis; E78.5 Hyperlipidemia, unspecified; I25.10 Atherosclerotic heart disease of native coronary artery without angina pectoris; M06.9 Rheumatoid arthritis, unspecified; E03.9 Hypothyroidism, unspecified; M10.9 Gout, unspecified; M54.9 Dorsalgia, unspecified; E66.9 Obesity, unspecified; Z68.34 Body mass index [BMI] 34.0-34.9, adult; Z79.01 Long term (current) use of anticoagulants; Z79.85 Long-term (current) use of injectable non-insulin antidiabetic drugs; Z79.890 Hormone replacement therapy; I25.2 Old myocardial infarction; Z95.5 Presence of coronary angioplasty implant and graft; Z90.49 Acquired absence of other specified parts of digestive tract; Z82.49 Family history of ischemic heart disease and other diseases of the circulatory system
CPT/HCPCS: 36415; 71046; 76937; 80048; 80053; 82550; 82948; 84484; 85025; 85610; 85730; 86706; 87340; 87350; 93005; 93306; 93458; 94799; 99152; 99153; 99284; C1887; J1644; J1650; J2003; J2250; J2270; J2405; J2470; J7030; J7050; J7799; Q9967

== ENCOUNTER 2025-07-17 05:54 | Emergency (ER) | payer MEDICARE ==
[~2025-07-17] VITALS: Ht 149.9 cm; Wt 76.2 kg
[2025-07-17 06:00] VITALS: PULSE 79; RESP 20; TEMP 98.3
[2025-07-17 06:46] VITALS: BP 113/92; PULSE 74; RESP 18; TEMP 98.4; O2SAT 100
[2025-07-17] MEDS ORDERED: ONDANSETRON HCL INJ 2MG/ML 2ML 2 MG/ML VIAL IV STA (06:51)
[2025-07-17] MEDS ORDERED: ONDANSETRON HCL 4 MG ORAL DISINTEGRATING TAB PO ONE (07:00)
== END 2025-07-17 06:57 | disposition home or self-care (01) ==
LOC: ER 06:08
DX: K92.0 Hematemesis (principal); R10.13 Epigastric pain; R10.11 Right upper quadrant pain; R42 Dizziness and giddiness; I12.0 Hypertensive chronic kidney disease with stage 5 chronic kidney disease or end stage renal disease; E11.22 Type 2 diabetes mellitus with diabetic chronic kidney disease; N18.6 End stage renal disease; Z99.2 Dependence on renal dialysis; I50.9 Heart failure, unspecified; I48.91 Unspecified atrial fibrillation; E03.9 Hypothyroidism, unspecified; I25.10 Atherosclerotic heart disease of native coronary artery without angina pectoris; D64.9 Anemia, unspecified; E78.5 Hyperlipidemia, unspecified; M06.9 Rheumatoid arthritis, unspecified; M10.9 Gout, unspecified; R94.31 Abnormal electrocardiogram [ECG] [EKG]; Z79.01 Long term (current) use of anticoagulants; I25.2 Old myocardial infarction
CPT/HCPCS: 93005; 99284; J2470